=== PATIENT | female | born 1960 | race Caucasian/White ===

== ENCOUNTER → 2016-10-25 | Outpatient (REF) | payer OTHER ==
[~2016-10-25] MED LIST: ACIP20TA5 PO; ADV250INH INH; ALBU83IN INH; ALIG4CAP PO; ATEN25TA PO; LEVO25TA5 PO; LISI10TA4 PO; LOMO2.5T PO; NASA1SPR
[2016-10-25 13:20] LABS: ALBUMIN 3.2 GM/DL (3.2-5.2); ALKALINE PHOSPHATASE 58 U/L (45-117); ALT/SGPT 26 U/L (12-78); ANION GAP 8 MEQ/L (8-16); AST/SGOT 14 U/L (15-37); BILIRUBIN,TOTAL 0.6 MG/DL (0.2-1.0); BLOOD UREA NITROGEN 14 MG/DL (7-18); CALCIUM LEVEL 8.4 MG/DL (8.5-10.1); CARBON DIOXIDE LEVEL 25 MEQ/L (21-32); CHLORIDE LEVEL 108 MEQ/L (98-107); CHOLESTEROL LEVEL 179 MG/DL (<200); CREATININE FOR GFR 0.84 MG/DL (0.55-1.02); GLOMERULAR FILTRATION RATE > 60.0 (>51); GLUCOSE, FASTING 103 MG/DL (70-105); POTASSIUM SERUM 4.3 MEQ/L (3.5-5.1); SODIUM LEVEL 141 MEQ/L (136-145); TOTAL PROTEIN 6.1 GM/DL (6.4-8.2); TRIGLYCERIDES LEVEL 146 MG/DL (<150)
== END ==
LOC: M SFHCCLAY 06:58
PROVIDERS: ATTEND Family Medicine
DX: I10 Essential (primary) hypertension (principal); E78.2 Mixed hyperlipidemia

== ENCOUNTER → 2016-10-31 | Outpatient (REF) | payer OTHER | LOC: M SFHCCLAY 15:47 | PROVIDERS: ATTEND Family Medicine | DX: R35.0 Frequency of micturition (principal) ==

== ENCOUNTER → 2017-01-11 | Outpatient (REF) | payer OTHER ==
[~2017-01-11] MED LIST changes: +ACIP1TAB PO; -ACIP20TA5 PO
== END ==
LOC: M SFHCWAGY 15:18
PROVIDERS: ATTEND Nurse Practitioner Family
DX: Z12.4 Encounter for screening for malignant neoplasm of cervix (principal)

== ENCOUNTER → 2017-01-11 | Outpatient (CLI) | payer BC ==
--- NOTE | 2017-01-11 16:31 | REPMRS ---
Patient History The patient states she had a clinical breast exam in 12/2016. Family history of prostate cancer in father, endometrial cancer in sister at age 50 or over, pancreatic cancer in mother at age 70, and prostate cancer in brother under age 50. Taking hormonal contraceptives for 35 years. Digital Woman Screen Mammo: January 11, 2017 - Exam #: [id number] Bilateral CC and MLO view(s) were taken. Technologist: Ronel Warner, Technologist Prior study comparison: December 30, 2015, digital woman screen mammo performed at [facility]. December 03, 2014, digital woman screen mammo performed at [facility]. October 09, 2013, digital woman screen mammo performed at [facility]. FINDINGS: There are scattered fibroglandular densities. There has been no change in the appearance of the mammogram from the prior studies. There is a mild amount of scattered fibroglandular density which is fairly symmetric. There is no interval development of dominant mass, architectural distortion, or clustered microcalcification suggestive of malignancy. ASSESSMENT: BI-RADS/ACR category 1 mammogram. Negative. Recommendation Routine screening mammogram in 1 year (for women over age 40). This mammogram was interpreted with the aid of an FDA-approved computer-aided dectection system. Electronically Signed By: Herrera Briceño MD 01/11/17 [id number]
== END ==
LOC: M WHC 14:22
PROVIDERS: ATTEND Nurse Practitioner Family
DX: Z12.31 Encounter for screening mammogram for malignant neoplasm of breast (principal); Z79.899 Other long term (current) drug therapy

== ENCOUNTER → 2017-01-25 | Outpatient (REF) | payer OTHER | LOC: M SFHCWAGY 10:21 → M SFHCCLAY 10:22 | PROVIDERS: ATTEND Nurse Practitioner Family | DX: N95.1 Menopausal and female climacteric states (principal) ==

== ENCOUNTER → 2017-05-03 | Outpatient (REF) | payer OTHER ==
[2017-05-03 11:47] LABS: ALBUMIN 3.4 GM/DL (3.2-5.2); ALBUMIN/GLOBULIN RATIO 1.03 (1.00-1.93); ALKALINE PHOSPHATASE 57 U/L (45-117); ALT/SGPT 26 U/L (12-78); ANION GAP 9 MEQ/L (8-16); AST/SGOT 12 U/L (7-37); BILIRUBIN,TOTAL 0.7 MG/DL (0.2-1.0); BLOOD UREA NITROGEN 14 MG/DL (7-18); CALCIUM LEVEL 8.4 MG/DL (8.5-10.1); CARBON DIOXIDE LEVEL 24 MEQ/L (21-32); CHLORIDE LEVEL 109 MEQ/L (98-107); CHOLESTEROL LEVEL 198 MG/DL (<200); CREATININE FOR GFR 0.85 MG/DL (0.55-1.02); GLOMERULAR FILTRATION RATE > 60.0 (>51); GLUCOSE, FASTING 99 MG/DL (70-105); POTASSIUM SERUM 4.3 MEQ/L (3.5-5.1); SODIUM LEVEL 142 MEQ/L (136-145); TOTAL PROTEIN 6.7 GM/DL (6.4-8.2); TRIGLYCERIDES LEVEL 176 MG/DL (<150)
== END ==
LOC: M SFHCCLAY 07:03
PROVIDERS: ATTEND Family Medicine
DX: I10 Essential (primary) hypertension (principal); E78.2 Mixed hyperlipidemia

== ENCOUNTER → 2017-07-24 | Outpatient (REF) | payer OTHER | LOC: M SFHCCLAY 17:26 | DX: L03.213 Periorbital cellulitis (principal) | CPT/HCPCS: 87077 ==

== ENCOUNTER → 2017-07-24 | Outpatient (REF) | payer OTHER | LOC: M SFHCCLAY 10:34 | DX: L03.213 Periorbital cellulitis (principal); Z53.9 Procedure and treatment not carried out, unspecified reason ==

== ENCOUNTER → 2017-11-12 | Outpatient (CLI) | payer BC, OTHER ==
[~2017-11-12] MED LIST changes: -ACIP1TAB PO; -ADV250INH INH; -ALBU83IN INH; -ALIG4CAP PO; -ATEN25TA PO; +E-Z-GAS II EFFERVESCENT PACKET (SODIUM BICARB./CITRIC ACID/SIMETHICONE) As Ordered; +E-Z-HD 98% w/w 340GM SUSP BTL As Ordered; +E-Z-PAQUE 96% w/w SUSP 176GM BTL As Ordered; -LEVO25TA5 PO; -LISI10TA4 PO; -LOMO2.5T PO; -NASA1SPR
== END ==
LOC: M RAD 09:38
DX: R13.10 Dysphagia, unspecified (principal)
CPT/HCPCS: 74220

== ENCOUNTER → 2017-12-06 | Outpatient (REF) | payer OTHER ==
[2017-12-06 11:56] LABS: ALBUMIN 3.4 GM/DL (3.2-5.2); ALBUMIN/GLOBULIN RATIO 1.06 (1.00-1.93); ALKALINE PHOSPHATASE 61 U/L (45-117); ALT/SGPT 30 U/L (12-78); ANION GAP 9 MEQ/L (8-16); AST/SGOT 11 U/L (7-37); BILIRUBIN,TOTAL 0.6 MG/DL (0.2-1.0); BLOOD UREA NITROGEN 15 MG/DL (7-18); CALCIUM LEVEL 8.7 MG/DL (8.5-10.1); CARBON DIOXIDE LEVEL 24 MEQ/L (21-32); CHLORIDE LEVEL 109 MEQ/L (98-107); CHOLESTEROL LEVEL 194 MG/DL (<200); CHOLESTEROL RISK RATIO 5.388 (<5); CREATININE FOR GFR 0.89 MG/DL (0.55-1.30); GLOMERULAR FILTRATION RATE > 60.0 (>51); GLUCOSE, FASTING 96 MG/DL (70-100); HDL CHOLESTEROL 36 MG/DL (>40); LDL CHOLESTEROL 114.4 MG/DL (<100); NON-HDL-C 158 MG/DL; POTASSIUM SERUM 4.6 MEQ/L (3.5-5.1); SODIUM LEVEL 142 MEQ/L (136-145); TOTAL PROTEIN 6.6 GM/DL (6.4-8.2); TRIGLYCERIDES LEVEL 218 MG/DL (<150)
== END ==
LOC: M SFHCCLAY 07:10
DX: I10 Essential (primary) hypertension (principal); E78.2 Mixed hyperlipidemia

== ENCOUNTER → 2017-12-11 | Outpatient (REF) | payer OTHER | LOC: M SFHCCLAY 15:08 | DX: R30.0 Dysuria (principal) ==

== ENCOUNTER → 2017-12-24 | Outpatient (CLI) | payer BC, OTHER | LOC: M RAD 16:13 | DX: R51 Headache (principal); Z86.73 Personal history of transient ischemic attack (TIA), and cerebral infarction without residual deficits; I67.82 Cerebral ischemia | CPT/HCPCS: 70551 ==

== ENCOUNTER 2018-01-09 09:51 | Day surgery (SDC) | payer BC, OTHER ==
[~2018-01-09 09:51] MED LIST changes: -E-Z-GAS II EFFERVESCENT PACKET (SODIUM BICARB./CITRIC ACID/SIMETHICONE) As Ordered; -E-Z-HD 98% w/w 340GM SUSP BTL As Ordered; -E-Z-PAQUE 96% w/w SUSP 176GM BTL As Ordered; +NS 1,000 ML IV
[2018-01-09] MEDS ORDERED: PROPOFOL 200 MG/20 ML VIAL As Ordered (10:40)
[2018-01-09] MEDS ORDERED: LIDOCAINE 2% INJ 100 MG/5 ML SDV (FOR ANES.) As Ordered (10:40)
[2018-01-09] MEDS ORDERED: GLYCOPYRROLATE INJ 0.2 MG/ML 2 ML VIAL As Ordered (10:40)
[2018-01-09] MEDS ORDERED: fentaNYL 100 MCG/2 ML INJECTION (J3010) As Ordered (10:40)
[2018-01-09] MEDS ORDERED: ONDANSETRON 4MG/2ML VIAL (J2405) As Ordered (10:40)
== END 2018-01-09 11:21 | disposition home or self-care (01) ==
LOC: M OPP 09:51
DX: R13.10 Dysphagia, unspecified (principal); K21.9 Gastro-esophageal reflux disease without esophagitis; K29.70 Gastritis, unspecified, without bleeding; K44.9 Diaphragmatic hernia without obstruction or gangrene; I10 Essential (primary) hypertension; E03.9 Hypothyroidism, unspecified; K57.32 Diverticulitis of large intestine without perforation or abscess without bleeding; R12 Heartburn; J45.909 Unspecified asthma, uncomplicated; Z88.1 Allergy status to other antibiotic agents; Z88.8 Allergy status to other drugs, medicaments and biological substances; Z88.0 Allergy status to penicillin; Z79.899 Other long term (current) drug therapy; Z80.42 Family history of malignant neoplasm of prostate; Z80.8 Family history of malignant neoplasm of other organs or systems
CPT/HCPCS: 91035

== ENCOUNTER → 2018-01-17 | Outpatient (CLI) | payer BC | LOC: M WHC 13:06 | DX: Z12.31 Encounter for screening mammogram for malignant neoplasm of breast (principal) ==

== ENCOUNTER → 2018-01-17 | Outpatient (REF) | payer OTHER ==
[2018-01-22 14:18] LABS: HPV LOW VOL RFLX Negative (Negative)
== END ==
LOC: M SFHCWAGY 13:26
DX: Z12.4 Encounter for screening for malignant neoplasm of cervix (principal)

== ENCOUNTER → 2018-03-03 | Outpatient (REF) | payer OTHER | LOC: M SFHCCLAY 17:03 | DX: Z01.818 Encounter for other preprocedural examination (principal) ==

== ENCOUNTER → 2018-03-07 | Outpatient (REF) | payer OTHER ==
[2018-03-07 16:29] LABS: HEMATOCRIT 42.5 % (36.0-47.0); HEMOGLOBIN 14.3 g/dl (12.0-15.5); MEAN CORPUSCULAR HEMOGLOBIN 29.9 pg (27.0-33.0); MEAN CORPUSCULAR HGB CONC 33.6 g/dl (32.0-36.5); MEAN CORPUSCULAR VOLUME 88.9 fl (80.0-96.0); PLATELET COUNT, AUTOMATED 516 10^3/uL (150-450); RED BLOOD COUNT 4.78 10^6/uL (4.00-5.40); RED CELL DISTRIBUTION WIDTH 13.4 % (11.5-14.5); WHITE BLOOD COUNT 9.8 10^3/uL (4.0-10.0)
[2018-03-07 17:45] LABS: ANION GAP 9 MEQ/L (8-16); BLOOD UREA NITROGEN 14 MG/DL (7-18); CALCIUM LEVEL 8.6 MG/DL (8.5-10.1); CARBON DIOXIDE LEVEL 22 MEQ/L (21-32); CHLORIDE LEVEL 110 MEQ/L (98-107); CREATININE FOR GFR 0.92 MG/DL (0.55-1.30); GLOMERULAR FILTRATION RATE > 60.0 (>51); GLUCOSE, FASTING 86 MG/DL (70-100); POTASSIUM SERUM 4.2 MEQ/L (3.5-5.1); SODIUM LEVEL 141 MEQ/L (136-145)
== END ==
LOC: M SFHCCLAY 09:38
DX: Z01.818 Encounter for other preprocedural examination (principal)
CPT/HCPCS: 80048

== ENCOUNTER → 2018-04-10 | Outpatient (CLI) | payer BC | LOC: M WHC 14:14 | DX: N92.0 Excessive and frequent menstruation with regular cycle (principal) | CPT/HCPCS: 76830 ==

== ENCOUNTER → 2018-05-30 | Outpatient (REF) | payer OTHER ==
[~2018-05-30] MED LIST changes: +ACIP1TAB PO; +ADV250INH INH; +ALBU83IN INH; +ALIG4CAP PO; +ATEN25TA PO; +FLUTISP; +LEVO25TA5 PO; +LISI10TA4 PO; +LOMO2.5T PO; +MONT10TA2 PO; +NASA1SPR; -NS 1,000 ML IV; +PANT40TA3 PO
[2018-05-30 11:53] LABS: BASO # 0.1 10^3/uL (0.0-0.2); EOS # 0.2 10^3/uL (0.0-0.50); EOS % 2.5 % (0.0-3.0); HEMOGLOBIN 13.8 g/dl (12.0-15.5); LYMPH # 1.9 10^3/uL (1.5-4.5); LYMPH % 27.1 % (24.0-44.0); MEAN CORPUSCULAR HEMOGLOBIN 29.4 pg (27.0-33.0); MEAN CORPUSCULAR HGB CONC 32.9 g/dl (32.0-36.5); MEAN CORPUSCULAR VOLUME 89.6 fl (80.0-96.0); MONO # 0.7 10^3/uL (0.0-0.8); MONO % 9.4 % (0.0-5.0); NEUTROPHILS # 4.2 10^3/uL (1.8-7.7); NEUTROPHILS % 59.6 % (36.0-66.0); PLATELET COUNT, AUTOMATED 452 10^3/uL (150-450); RED BLOOD COUNT 4.69 10^6/uL (4.00-5.40); WHITE BLOOD COUNT 7.1 10^3/uL (4.0-10.0)
[2018-05-30 12:10] LABS: ALBUMIN 3.6 GM/DL (3.2-5.2); ALT/SGPT 90 U/L (12-78); BILIRUBIN,TOTAL 0.7 MG/DL (0.2-1.0); BLOOD UREA NITROGEN 14 MG/DL (7-18); CALCIUM LEVEL 8.9 MG/DL (8.5-10.1); CARBON DIOXIDE LEVEL 26 MEQ/L (21-32); CHLORIDE LEVEL 107 MEQ/L (98-107); CHOLESTEROL LEVEL 199 MG/DL (<200); CHOLESTEROL RISK RATIO 4.061 (<5); CREATININE FOR GFR 0.82 MG/DL (0.55-1.30); GLOMERULAR FILTRATION RATE > 60.0 (>51); GLUCOSE, FASTING 97 MG/DL (70-100); HDL CHOLESTEROL 49 MG/DL (>40); LDL CHOLESTEROL 121 MG/DL (<100); NON-HDL-C 150 MG/DL; POTASSIUM SERUM 4.3 MEQ/L (3.5-5.1); SODIUM LEVEL 142 MEQ/L (136-145); TOTAL PROTEIN 6.5 GM/DL (6.4-8.2); TRIGLYCERIDES LEVEL 145 MG/DL (<150)
== END ==
LOC: M SFHCCLAY 07:16
PROVIDERS: ATTEND Family Medicine
DX: I10 Essential (primary) hypertension (principal); E78.2 Mixed hyperlipidemia; E03.9 Hypothyroidism, unspecified

== ENCOUNTER → 2018-08-04 | Outpatient (REF) | payer OTHER | LOC: M SFHCWAGY 12:11 | PROVIDERS: ATTEND Nurse Practitioner Family | DX: N90.89 Other specified noninflammatory disorders of vulva and perineum (principal) ==

== ENCOUNTER → 2018-08-06 | Outpatient (CLI) | payer BC, OTHER ==
--- NOTE | 2018-08-06 09:45 | REP ---
MAXILLOFACIAL CT WITHOUT CONTRAST: HISTORY: Recurrent maxillary sinusitis. A right Debora cell is present. Very minimal mucosal thickening is present in the right maxillary sinus. The remaining sinuses are clear. The ostiomeatal units are patent. The middle and inferior nasal turbinates are partially paradoxical. There is mild deviation of the nasal septum to the right. A spur is present arising from the right side of the nasal septum. The spur abuts the right middle and inferior nasal turbinates. The cribriform plate, medial mendoza of the orbits and optic canals are intact. The carotid canals form a segment of the posterolateral mendoza of the sphenoid sinus. The sphenoid sinus septum inserts into the left internal carotid canal wall. IMPRESSION: Sinus mucosal thickening as described above. Electronically Signed by Solis Simons MD 08/06/2018 09:49 A
== END ==
LOC: M RAD 09:17
PROVIDERS: ATTEND Family Medicine
DX: J01.01 Acute recurrent maxillary sinusitis (principal)

== ENCOUNTER → 2018-11-13 | Outpatient (REF) | payer OTHER ==
[~2018-11-13] MED LIST changes: +ADVI100T PO; +AMLO5TAB6 PO; +DICY10CA13 PO; +NORC1TAB7 PO; +SING10TA32 PO
[2018-11-14 13:07] LABS: BASO # 0.1 10^3/uL (0.0-0.2); EOS # 0.2 10^3/uL (0.0-0.50); EOS % 2.1 % (0.0-3.0); HEMATOCRIT 42.1 % (36.0-47.0); HEMOGLOBIN 13.7 g/dl (12.0-15.5); LYMPH # 2.1 10^3/uL (1.5-4.5); MEAN CORPUSCULAR HEMOGLOBIN 29.5 pg (27.0-33.0); MEAN CORPUSCULAR HGB CONC 32.5 g/dl (32.0-36.5); MEAN CORPUSCULAR VOLUME 90.7 fl (80.0-96.0); MONO # 0.7 10^3/uL (0.0-0.8); MONO % 7.9 % (0.0-5.0); NEUTROPHILS # 5.7 10^3/uL (1.8-7.7); NEUTROPHILS % 64.7 % (36.0-66.0); PLATELET COUNT, AUTOMATED 486 10^3/uL (150-450); RED BLOOD COUNT 4.64 10^6/uL (4.00-5.40); WHITE BLOOD COUNT 8.8 10^3/uL (4.0-10.0)
[2018-11-14 13:31] LABS: BLOOD UREA NITROGEN 19 MG/DL (7-18); CALCIUM LEVEL 9.9 MG/DL (8.5-10.1); CARBON DIOXIDE LEVEL 27 MEQ/L (21-32); CHLORIDE LEVEL 107 MEQ/L (98-107); CREATININE FOR GFR 0.88 MG/DL (0.55-1.30); GLOMERULAR FILTRATION RATE > 60.0 (>51); GLUCOSE, FASTING 102 MG/DL (70-100); POTASSIUM SERUM 4.1 MEQ/L (3.5-5.1); SODIUM LEVEL 143 MEQ/L (136-145)
== END ==
LOC: M SFHCCLAY 14:07
PROVIDERS: ATTEND Nurse Practitioner Family
DX: N81.10 Cystocele, unspecified (principal); I10 Essential (primary) hypertension

== ENCOUNTER 2018-11-20 06:03 | Day surgery (SDC) | payer BC, OTHER ==
[~2018-11-20] VITALS: Ht 165.1 cm; Wt 92.4 kg
[~2018-11-20 06:03] MED LIST changes: -ADVI100T PO; +LR 1,000 ML IV ONE; -NORC1TAB7 PO
[2018-11-20 06:34] LABS: HEMATOCRIT 41.9 % (36.0-47.0); HEMOGLOBIN 13.8 g/dl (12.0-15.5); MEAN CORPUSCULAR HEMOGLOBIN 29.6 pg (27.0-33.0); MEAN CORPUSCULAR HGB CONC 32.9 g/dl (32.0-36.5); MEAN CORPUSCULAR VOLUME 89.7 fl (80.0-96.0); PLATELET COUNT, AUTOMATED 434 10^3/uL (150-450); RED BLOOD COUNT 4.67 10^6/uL (4.00-5.40)
[2018-11-20] MEDS ORDERED: VASOPRESSIN INJ 20 UNITS/ML VIAL As Ordered ONE (06:54)
[2018-11-20] MEDS ORDERED: dexameTHASONE 4 MG/ML 1ML VIAL (J1100) As Ordered ONE (07:07)
[2018-11-20] MEDS ORDERED: ROCURONIUM BROMIDE 50 MG/5 ML VIAL As Ordered ONE ×2 (07:07→09:18)
[2018-11-20] MEDS ORDERED: LIDOCAINE 2% INJ 100 MG/5 ML SDV (FOR ANES.) As Ordered ONE (07:07)
[2018-11-20] MEDS ORDERED: ONDANSETRON 4MG/2ML VIAL (J2405) As Ordered ONE ×2 (07:07→10:44)
[2018-11-20] MEDS ORDERED: PROPOFOL 200 MG/20 ML VIAL As Ordered ONE (07:07)
[2018-11-20] MEDS ORDERED: fentaNYL 100 MCG/2 ML INJECTION (J3010) As Ordered ONE ×3 (07:07→10:45)
[2018-11-20] MEDS ORDERED: MIDAZOLAM INJ 2 MG/2 ML VIAL (J2250) As Ordered ONE (07:07)
[2018-11-20] MEDS ORDERED: SCOPOLAMINE 1MG TRANSDERMAL PATCH As Ordered ONE (07:25)
[2018-11-20] MEDS ORDERED: SCOPOLAMINE 1MG TRANSDERMAL PATCH TOP ONE (07:45)
[2018-11-20] MEDS ORDERED: SUGAMMADEX SODIUM 500 MG/5 ML VIAL (BRIDION) As Ordered ONE (08:00)
[2018-11-20] MEDS ORDERED: KETOROLAC 60 MG/2 ML VIAL (J1885) As Ordered ONE (08:00)
[2018-11-20] MEDS ORDERED: METOCLOPRAMIDE INJ 10MG/2ML VIAL (J2765) As Ordered ONE (08:00)
[2018-11-20] MEDS ORDERED: ACETAMINOPHEN 1000MG 100ML IV BTL (OFIRMEV) (J0131 PER 10MG) As Ordered ONE (10:00)
[2018-11-20] MEDS ORDERED: oxyCODONE 5MG TAB As Ordered ONE (10:45)
[2018-11-20] MEDS: fentaNYL 100 MCG/2 ML INJECTION (J3010) IV PRN ×4 (10:45→11:00)
[2018-11-20] MEDS ORDERED: MORPHINE 1MG/ML IN 0.9% NACL 100ML IV BAG As Ordered ONE (10:45)
[2018-11-20] MEDS ORDERED: MORPHINE 1MG/ML IN 0.9% NACL 100ML IV BAG IV PRN (11:00)
[2018-11-20] MEDS ORDERED: LR 1,000 ML IV SCH (11:00)
[2018-11-20] MEDS ORDERED: EPIDURAL/PCA KEYS XX PRN (11:00)
[2018-11-20] MEDS: LR 1,000 ML IV SCH ×2 (11:00→20:39)
[2018-11-20] MEDS ORDERED: PROMETHAZINE INJ 25 MG/ML VIAL (J2550) IV PRN (11:00)
[2018-11-20] MEDS ORDERED: diphenhydrAMINE INJ 50MG/ML VIAL (J1200) IV PRN (11:00)
[2018-11-20] MEDS ORDERED: NALOXONE INJ 0.4 MG/1 ML VIAL (J2310) IV PRN (11:00)
[2018-11-20] MEDS ORDERED: oxyCODONE 5MG TAB PO PRN (11:00)
[2018-11-20] MEDS ORDERED: NALBUPHINE HCL 10 MG/ML AMP (J2300) IV PRN (11:00)
[2018-11-20] MEDS ORDERED: HYDROMORPHONE HCL 0.5 MG/ 0.5 ML SYRINGE (J1170 PER 1) As Ordered ONE (11:22)
--- NOTE | 2018-11-20 11:34 | RO ---
DATE OF PROCEDURE: 11/20/2018 PREPROCEDURE DIAGNOSIS/INDICATION FOR SURGERY: Symptomatic pelvic prolapse, failed pessary, urinary incontinence with urethral hypermobility. POSTPROCEDURE DIAGNOSIS: Symptomatic pelvic prolapse, failed pessary, urinary incontinence with urethral hypermobility. PROCEDURE: Total vaginal hysterectomy with right salpingectomy, sacrospinous suspension, anterior and posterior paracystourethroscopy, Mid-Urethral Sling Solyx. SURGEON: Dr. Maria Dolores Etienne WOOD DRILLING MACHINE OPERATOR: ANESTHESIA: General endotracheal anesthesia. BRIEF DESCRIPTION OF PROCEDURE AND FINDINGS: Julita was brought to the operating room where sufficient general endotracheal anesthesia was induced and she was prepped, draped and positioned in the usual sterile fashion with the cervix grasped with a single tooth tenacula a circumferential incision was made with the cardinal ligaments isolated, clamped, transected and ligated and then the uterine vasculature and the uterosacral was clamped, transected, and ligated, not surprisingly the urterosacrals were quite attenuated, they were nevertheless marked for later reattachment. She also had a reasonable enterocele anteriorly so the uterus was drawn down through and on the right side we were able to get the tube and on the left side there is a little bit of scarring and so I decided to leave that tube. We then did a pursestring enterocele repair and then dissected free the cystocele anteriorly and did an apical cystocele repair and then dissected free posteriorly and dissected out to the right ureterosacral ligament for the sacrospinous suspension. Maxon suture #2-0 were placed two each and some Anchosure Anchors, we then placed two of the anchors in the sacrospinous ligament given us four sutures which with Vogt needles we were able to come through and through the vaginal epithelium in a four point repair. We then with 0 Vicryl closed the vaginal cuff taking good angle stitches of course and then imani up those Maxon sutures acting a adriel up to the sacrospinous ligament with good support, but there was still a little midline rectocele to repair and also some separation at the introitus of the rectovaginal septum and peritoneal body which needed re-supporting, but we had good apical support. We went ahead and did cystoscopy which was normal with jets of urine bilaterally although the ureter on the left side was slightly different opening to the bladder, nevertheless the urinary flow was quite obviously normal and we had some puckering anteriorly where we had corrected that apical cystocele and we then went ahead and completed the rest of the throws on the Maxon then I injected anteriorly in the midline where that small persistent sort of mid anterior cystocele was and we dissected that free and some deep side to side sutures to the perivesical tissues using 2-0 Vicryl, trimmed the redundant tissue, closed the vaginal epithelium anteriorly again with 2-0 Vicryl and then turned our attention to the introital posterior pair, a yoselin shape area of tissue was removed in an inverted triangle on the peritoneal body, but then regular yoselin on the posterior vagina getting a yoselin resection we then plicated the levators, re-supported the rectovaginal septum and then reconnected it vertically to the peritoneal body and then re-supported the peritoneal body with 0 Vicryl and then closed all of this 2-0 Vicryl with good approximation and hemostasis achieved. We then turned our attention to the mid urethral sling anteriorly approximately a centimeter cephalad from the ureteral meatus a vertical midline vaginal incision was made, the Strully scissors were used again to dissect the underlying tissues to create the tracks for the trocars for the Solyx mid urethral sling and this was placed without complications starting first on the right side then the left and the vaginal epithelium then closed. Cystourethroscopy confirmed lack of bladder injury with this placement and confirmed again of lack of suture into the bladder and good urinary flow. We then placed a vaginal pack and did a rectal exam which confirmed good support and lack of rectal injury and the procedure was then ended. ESTIMATED BLOOD LOSS: Relatively small, her uterus and entire case about 25 mL. FLUID REPLACEMENT: Crystalloid. COMPLICATIONS: None. CONDITION ON DISPOSITION: Julita tolerated the procedure well and was recovering in the recovery room in good condition.
[2018-11-20 12:00] VITALS: BP 158/79
[2018-11-20] MEDS ORDERED: ONDANSETRON 4MG/2ML VIAL (J2405) IV PRN (12:00)
[2018-11-20] MEDS ORDERED: HYDROMORPHONE HCL 0.5 MG/ 0.5 ML SYRINGE (J1170 PER 1) IV PRN (12:00)
[2018-11-20 12:30] VITALS: BP 136/76
[2018-11-20 13:00] VITALS: BP 134/70
[2018-11-20] MEDS ORDERED: IBUPROFEN 600 MG TAB PO PRN (13:30)
[2018-11-20 14:00] VITALS: BP 123/67
[2018-11-20 16:00] VITALS: BP 134/73
[2018-11-20] MEDS: ADVAIR HFA 115/21MCG INHALER INH SCH (20:01)
[2018-11-20 20:30] VITALS: BP 136/71
[2018-11-20] MEDS: IBUPROFEN 600 MG TAB PO PRN (20:41)
[2018-11-21] VITALS: BP 129/66
[2018-11-21] MEDS: LR 1,000 ML IV SCH (04:05)
[2018-11-21 04:30] VITALS: BP 139/77
[2018-11-21] MEDS: IBUPROFEN 600 MG TAB PO PRN (05:24)
[2018-11-21] MEDS ORDERED: LEVOTHYROXINE 25MCG TABLET (0.025MG) PO SCH (06:00)
[2018-11-21] MEDS ORDERED: NORCO, ANEXSIA 5/325MG TABLET (HYDROcodone/ACETAMINOPHEN) PO PRN (06:00)
[2018-11-21 07:12] LABS: HEMOGLOBIN 12.2 g/dl (12.0-15.5); MEAN CORPUSCULAR HEMOGLOBIN 30.2 pg (27.0-33.0); MEAN CORPUSCULAR VOLUME 91.6 fl (80.0-96.0); PLATELET COUNT, AUTOMATED 386 10^3/uL (150-450); RED BLOOD COUNT 4.04 10^6/uL (4.00-5.40); WHITE BLOOD COUNT 10.6 10^3/uL (4.0-10.0)
[2018-11-21] MEDS: ADVAIR HFA 115/21MCG INHALER INH SCH (07:50)
[2018-11-21 08:30] VITALS: BP 138/78
[2018-11-21 08:34] VITALS: BP 138/78
[2018-11-21] MEDS ORDERED: MONTELUKAST 10 MG TAB PO SCH (09:00)
[2018-11-21] MEDS ORDERED: PANTOPRAZOLE 40MG TAB (PROTONIX) PO SCH (09:00)
[2018-11-21] MEDS ORDERED: ATENOLOL 25 MG TAB PO SCH (09:00)
[2018-11-21] MEDS ORDERED: amLODIPine 5 MG TAB PO SCH ×2 (09:00)
[2018-11-21] MEDS ORDERED: ADVI100T PO (09:37)
[2018-11-21] MEDS ORDERED: NORC1TAB7 PO (09:37)
== END 2018-11-21 10:15 | disposition home or self-care (01) ==
LOC: M SDC 06:03 → M PED 11:53 → M SDC 11-21 10:15
PROVIDERS: ATTEND Obstetrics & Gynecology
DX: N72 Inflammatory disease of cervix uteri (principal); N81.89 Other female genital prolapse; R32 Unspecified urinary incontinence; N36.41 Hypermobility of urethra; I10 Essential (primary) hypertension; E03.9 Hypothyroidism, unspecified; K21.9 Gastro-esophageal reflux disease without esophagitis; Z79.51 Long term (current) use of inhaled steroids; J45.909 Unspecified asthma, uncomplicated; Z79.899 Other long term (current) drug therapy
CPT/HCPCS: 36415; 57260; 57282; 57288; 58262; 85027; 86850; 86900; 86901; 88307; 94640; 94664; C1713; C1771; J0131; J0690; J1100; J1885; J2250; J2405; J2765; J3010

== ENCOUNTER → 2018-12-08 | Outpatient (REF) | payer OTHER ==
[~2018-12-08] MED LIST changes: +ADVI100T PO; -LR 1,000 ML IV ONE; +NORC1TAB7 PO
[2018-12-08 18:45] LABS: APPEARANCE, URINE HAZY (CLEAR); BACTERIA, URINE AUTO 1+ (NEGATIVE); BILIRUBIN, URINE AUTO NEGATIVE (NEGATIVE); BLOOD, URINE BLOOD 3+ (NEGATIVE); COLOR, URINE YELLOW (YELLOW); GLUCOSE, URINE (UA) AUTO NEGATIVE (NEGATIVE); KETONE, URINE AUTO NEGATIVE (NEGATIVE); LEUKOCYTE ESTERASE, URINE AUTO 3+ (NEGATIVE); MUCUS, URINE SMALL (NEGATIVE); NITRITE, URINE AUTO NEGATIVE (NEGATIVE); PROTEIN, URINE AUTO NEGATIVE (NEGATIVE); RBC, URINE AUTO 60 /HPF (0-3); SPECIFIC GRAVITY URINE AUTO 1.013 (1.002-1.035); SQUAMOUS EPITHELIAL CELL UR AU 2 /HPF (0-6); TRANSITIONAL EPITHELIAL AUTO <1 /HPF; UROBILINOGEN, URINE AUTO 0.2 mg/dL (0.0-2.0); WBC, URINE AUTO TNTC /HPF (0-3)
== END ==
LOC: M LAB REF 16:30
PROVIDERS: ATTEND Nurse Practitioner Women's Health
DX: N39.0 Urinary tract infection, site not specified (principal)

== ENCOUNTER → 2018-12-17 | Outpatient (REF) | payer OTHER ==
[2018-12-17 12:42] LABS: APPEARANCE, URINE CLOUDY (CLEAR); BACTERIA, URINE AUTO NEGATIVE (NEGATIVE); BILIRUBIN, URINE AUTO NEGATIVE (NEGATIVE); BLOOD, URINE BLOOD 2+ (NEGATIVE); COLOR, URINE YELLOW (YELLOW); GLUCOSE, URINE (UA) AUTO NEGATIVE (NEGATIVE); KETONE, URINE AUTO NEGATIVE (NEGATIVE); LEUKOCYTE ESTERASE, URINE AUTO 3+ (NEGATIVE); MUCUS, URINE SMALL (NEGATIVE); NITRITE, URINE AUTO NEGATIVE (NEGATIVE); PROTEIN, URINE AUTO NEGATIVE (NEGATIVE); RBC, URINE AUTO 40 /HPF (0-3); SPECIFIC GRAVITY URINE AUTO 1.016 (1.002-1.035); SQUAMOUS EPITHELIAL CELL UR AU 4 /HPF (0-6); UROBILINOGEN, URINE AUTO 0.2 mg/dL (0.0-2.0); WBC, URINE AUTO TNTC /HPF (0-3)
== END ==
LOC: M LAB REF 12:20
PROVIDERS: ATTEND Nurse Practitioner Women's Health
DX: N39.0 Urinary tract infection, site not specified (principal)

== ENCOUNTER → 2018-12-30 | Outpatient (REF) | payer OTHER ==
[2018-12-30 17:53] LABS: APPEARANCE, URINE CLOUDY (CLEAR); BACTERIA, URINE AUTO NEGATIVE (NEGATIVE); BILIRUBIN, URINE AUTO NEGATIVE (NEGATIVE); BLOOD, URINE BLOOD 1+ (NEGATIVE); COLOR, URINE YELLOW (YELLOW); GLUCOSE, URINE (UA) AUTO NEGATIVE (NEGATIVE); KETONE, URINE AUTO NEGATIVE (NEGATIVE); LEUKOCYTE ESTERASE, URINE AUTO 3+ (NEGATIVE); MUCUS, URINE SMALL (NEGATIVE); NITRITE, URINE AUTO NEGATIVE (NEGATIVE); PROTEIN, URINE AUTO NEGATIVE (NEGATIVE); RBC, URINE AUTO 17 /HPF (0-3); SPECIFIC GRAVITY URINE AUTO 1.021 (1.002-1.035); SQUAMOUS EPITHELIAL CELL UR AU 2 /HPF (0-6); UROBILINOGEN, URINE AUTO 0.2 mg/dL (0.0-2.0); WBC, URINE AUTO 153 /HPF (0-3)
== END ==
LOC: M LAB REF 16:24
PROVIDERS: ATTEND Nurse Practitioner Women's Health
DX: N39.0 Urinary tract infection, site not specified (principal)

== ENCOUNTER → 2019-01-07 | Outpatient (REF) | payer OTHER ==
[2019-01-07 17:48] LABS: APPEARANCE, URINE CLEAR (CLEAR); BACTERIA, URINE AUTO NEGATIVE (NEGATIVE); BILIRUBIN, URINE AUTO NEGATIVE (NEGATIVE); BLOOD, URINE BLOOD NEGATIVE (NEGATIVE); COLOR, URINE YELLOW (YELLOW); GLUCOSE, URINE (UA) AUTO NEGATIVE (NEGATIVE); KETONE, URINE AUTO NEGATIVE (NEGATIVE); LEUKOCYTE ESTERASE, URINE AUTO 1+ (NEGATIVE); NITRITE, URINE AUTO NEGATIVE (NEGATIVE); PROTEIN, URINE AUTO NEGATIVE (NEGATIVE); RBC, URINE AUTO 2 /HPF (0-3); SPECIFIC GRAVITY URINE AUTO 1.014 (1.002-1.035); SQUAMOUS EPITHELIAL CELL UR AU 0 /HPF (0-6); UROBILINOGEN, URINE AUTO 0.2 mg/dL (0.0-2.0); WBC, URINE AUTO 4 /HPF (0-3)
== END ==
LOC: M LAB REF 16:45
PROVIDERS: ATTEND Obstetrics & Gynecology
DX: N81.2 Incomplete uterovaginal prolapse (principal); N39.46 Mixed incontinence

== ENCOUNTER → 2019-01-15 | Outpatient (CLI) | payer BC, OTHER ==
--- NOTE | 2019-01-15 16:03 | REP ---
HISTORY: Heel pain. Mild degenerative changes seen throughout the foot, particularly the first metatarsophalangeal joint. There is no acute fracture. There is no significant heel spur. Electronically Signed by Jerry Owusu DO 01/15/2019 04:30 P
--- NOTE | 2019-01-15 16:20 | REP ---
HISTORY: Cough. COMPARISON: None. FINDINGS: The superior mediastinal structures are midline. The cardiac silhouette is unremarkable in size, shape and position. The diaphragmatic surfaces of the lungs are regular and the costophrenic angles are clear. The pulmonary morales are clear. The imaged osseous structures are intact. IMPRESSION: There is no acute cardiopulmonary disease. Electronically Signed by Jerry Owusu DO 01/15/2019 04:30 P
== END ==
LOC: M CLY 14:29
PROVIDERS: ATTEND Family Medicine
DX: R05 Cough (principal); M19.071 Primary osteoarthritis, right ankle and foot

== ENCOUNTER → 2019-01-15 | Outpatient (REF) | payer OTHER ==
[2019-01-16 11:56] LABS: BASO # 0.1 10^3/uL (0.0-0.2); BASO % 0.9 % (0.0-1.0); EOS # 0.2 10^3/uL (0.0-0.50); EOS % 1.7 % (0.0-3.0); HEMATOCRIT 43.1 % (36.0-47.0); HEMOGLOBIN 13.9 g/dl (12.0-15.5); LYMPH # 1.9 10^3/uL (1.5-4.5); LYMPH % 20.6 % (24.0-44.0); MEAN CORPUSCULAR HEMOGLOBIN 29.2 pg (27.0-33.0); MEAN CORPUSCULAR HGB CONC 32.3 g/dl (32.0-36.5); MEAN CORPUSCULAR VOLUME 90.5 fl (80.0-96.0); MONO # 0.7 10^3/uL (0.0-0.8); NEUTROPHILS # 6.2 10^3/uL (1.8-7.7); NEUTROPHILS % 68.5 % (36.0-66.0); PLATELET COUNT, AUTOMATED 527 10^3/uL (150-450); RED BLOOD COUNT 4.76 10^6/uL (4.00-5.40); WHITE BLOOD COUNT 9.1 10^3/uL (4.0-10.0)
[2019-01-16 12:04] LABS: C REACTIVE PROTEIN QUANTITATIV 0.86 MG/DL (0.00-0.30); RHEUMATOID FACTOR QUANT < 10.0 IU/ML (<15.0)
[2019-01-16 12:50] LABS: ERYTHROCYTE SEDIMENTATION RATE 30 mm/hr (0-30)
[2019-01-20 00:10] LABS: ANA (HEP2) Negative (.); CYCLIC CITRULLINATED PEPTIDE 13 units (0-19)
== END ==
LOC: M SFHCCLAY 14:12
PROVIDERS: ATTEND Family Medicine
DX: R22.33 Localized swelling, mass and lump, upper limb, bilateral (principal); E03.9 Hypothyroidism, unspecified

== ENCOUNTER → 2019-01-20 | Outpatient (CLI) | payer BC ==
--- NOTE | 2019-01-20 15:21 | REPMRS ---
Patient History The patient states she had a clinical breast exam in 12/2018. Family history of prostate cancer under age 50 in brother, prostate cancer in father, pancreatic cancer at age 70 in mother, endometrial cancer at age 50 or over in sister. Took hormonal contraceptives for 36 years. 3D TOMOSYNTHESIS WAS PERFORMED. The [facility] lifetime risk for breast cancer is 7.1%. Digital Woman Screen Mammo: January 20, 2019 - Exam #: [id number] Bilateral CC and MLO view(s) were taken. Technologist: Ronel Warner, Technologist Prior study comparison: January 17, 2018, bilateral digital woman screen mammo performed at [facility]. January 11, 2017, digital woman screen mammo performed at [facility]. FINDINGS: There are scattered fibroglandular densities. There has been no change in the appearance of the mammogram from the prior studies. There is a mild amount of residual fibroglandular tissue which is fairly symmetric. There is no interval development of dominant mass, architectural distortion, or clustered microcalcification suggestive of malignancy. Assessment: BI-RADS/ACR category 1 mammogram. Negative Mammogram. Recommendation Routine screening mammogram in 1 year (for women over age 40). This mammogram was interpreted with the aid of an FDA-approved computer-aided dectection system. Electronically Signed By: Walter Candelaria MD 01/20/19 2789
== END ==
LOC: M WHC 12:52
PROVIDERS: ATTEND Nurse Practitioner Family
DX: Z12.31 Encounter for screening mammogram for malignant neoplasm of breast (principal); Z80.0 Family history of malignant neoplasm of digestive organs; Z80.49 Family history of malignant neoplasm of other genital organs; Z92.0 Personal history of contraception

== ENCOUNTER → 2019-07-14 | Outpatient (CLI) | payer BC ==
[~2019-07-14] MED LIST changes: -MONT10TA2 PO; +MONT10TA4 PO
--- NOTE | 2019-07-14 14:11 | REP ---
Clinical: Cough . Comparison: 01/15/2019 . Technique: PA and lateral. Findings: The mediastinum and cardiac silhouette are normal. The lung morales are clear and without acute consolidation, effusion, or pneumothorax. The skeletal structures are intact and normal. Impression: 1. No acute cardiopulmonary process. Electronically Signed by Ezekiel Scott MD 07/14/2019 02:03 P
== END ==
LOC: M CLY 13:41
PROVIDERS: ATTEND Family Medicine
DX: R05 Cough (principal)

== ENCOUNTER → 2019-07-14 | Outpatient (REF) | payer OTHER | LOC: M LABDRAWC 07:30 | PROVIDERS: ATTEND Internal Medicine Pulmonary Disease | DX: R05 Cough (principal) ==

== ENCOUNTER → 2019-07-28 | Outpatient (REF) | payer OTHER ==
[2019-07-28 12:37] LABS: BLOOD UREA NITROGEN 14 MG/DL (7-18); CREATININE FOR GFR 0.82 MG/DL (0.70-1.30); GLOMERULAR FILTRATION RATE > 60.0 (>56)
== END ==
LOC: EDSEX → M LABDRAWC 11:38
PROVIDERS: ATTEND Internal Medicine Pulmonary Disease
DX: Z01.812 Encounter for preprocedural laboratory examination (principal)

== ENCOUNTER → 2019-07-30 | Outpatient (CLI) | payer BC, OTHER ==
[~2019-07-30] MED LIST changes: +ISOVUE-370 76% 100ML VIAL (Q9967) As Ordered ONE
--- NOTE | 2019-07-30 14:26 | REPVR ---
PROCEDURE INFORMATION: Exam: CT Chest With Contrast Exam date and time: 07/30/2019 1:36 PM Age: 58 years old Clinical indication: Cough TECHNIQUE: Imaging protocol: Computed tomography of the chest with intravenous contrast. 3D rendering: MIP and/or 3D reconstructed images were created by the technologist. Radiation optimization: All CT scans at this facility use at least one of these dose optimization techniques: automated exposure control; mA and/or kV adjustment per patient size (includes targeted exams where dose is matched to clinical indication); or iterative reconstruction. Contrast material: ISOVUE 370; Contrast volume: 75 ml; Contrast route: IV; COMPARISON: CR CHEST 2 VIEW 07/14/2019. CT abdomen pelvis 01/26/16. FINDINGS: Lungs: Mild discoid scarring or atelectasis in both lower lobes is new since the CT in 2015. The lungs are otherwise clear. Pleural space: No significant pleural effusion. No pneumothorax. Heart: The cardiac silhouette is normal in size. Mediastinum: The mediastinal contour is normal. There is a small hiatal hernia, 2 cm in length. Aorta: Unremarkable. No aortic aneurysm. Lymph nodes: There is no hilar, mediastinal or axillary lymphadenopathy. Liver: An enhancing lesion in the left hepatic lobe at the junction of hepatic segments 2 and 4A is 2.1 x 2.2 x 1.9 cm (in retrospect, it was previously 1.8 x 2.0 x 1.6 cm on 01/26/16, but not reported at that time). It is benign, nonspecific, and most likely a hemangioma. Gallbladder and bile ducts: Cholecystectomy clips.The included upper abdominal organs are otherwise unremarkable. Bones/joints: No acute osseous abnormalities are identified. Soft tissues: Unremarkable. Other findings: CT abdomen pelvis with contrast 01/26/16. IMPRESSION: 1. Mild discoid scarring or atelectasis in both lower lobes. The lungs are otherwise clear. 2. No acute thoracic abnormality. 3. An enhancing lesion in the left hepatic lobe at the junction of hepatic segments 2 and 4A is 2.1 x 2.2 x 1.9 cm (in retrospect, it was previously 1.8 x 2.0 x 1.6 cm on 01/26/16, but not reported at that time). It is benign, nonspecific, and most likely a hemangioma. Electronically signed by: Nick Aviles On 07/30/2019 14:26:20 PM
== END ==
LOC: M RAD 13:22 → EDSEX 14:00
PROVIDERS: ATTEND Internal Medicine Pulmonary Disease
DX: R05 Cough (principal); K76.89 Other specified diseases of liver; K44.9 Diaphragmatic hernia without obstruction or gangrene
CPT/HCPCS: 71260; Q9967

== ENCOUNTER → 2019-08-06 | Outpatient (REF) | payer OTHER ==
[~2019-08-06] MED LIST changes: -ISOVUE-370 76% 100ML VIAL (Q9967) As Ordered ONE
== END ==
LOC: M SFHCCLAY 10:06
PROVIDERS: ATTEND Family Medicine
DX: R30.0 Dysuria (principal)

== ENCOUNTER → 2019-08-31 | Outpatient (REF) | payer OTHER ==
[2019-08-31 12:55] LABS: APPEARANCE, URINE HAZY (CLEAR); BACTERIA, URINE AUTO 1+ (NEGATIVE); BILIRUBIN, URINE AUTO NEGATIVE (NEGATIVE); BLOOD, URINE BLOOD 1+ (NEGATIVE); COLOR, URINE YELLOW (YELLOW); GLUCOSE, URINE (UA) AUTO NEGATIVE (NEGATIVE); KETONE, URINE AUTO NEGATIVE (NEGATIVE); LEUKOCYTE ESTERASE, URINE AUTO 3+ (NEGATIVE); MUCUS, URINE SMALL (NEGATIVE); NITRITE, URINE AUTO NEGATIVE (NEGATIVE); PROTEIN, URINE AUTO NEGATIVE (NEGATIVE); RBC, URINE AUTO 4 /HPF (0-3); SQUAMOUS EPITHELIAL CELL UR AU 6 /HPF (0-6); TRANSITIONAL EPITHELIAL AUTO 2 /HPF; UROBILINOGEN, URINE AUTO 0.2 mg/dL (0.0-2.0); WBC, URINE AUTO 24 /HPF (0-3)
== END ==
LOC: M LAB REF 12:38
PROVIDERS: ATTEND Obstetrics & Gynecology
DX: N39.0 Urinary tract infection, site not specified (principal)

== ENCOUNTER → 2019-09-17 | Outpatient (REF) | payer OTHER ==
[2019-09-17 16:23] LABS: BASO # 0.1 10^3/uL (0.0-0.2); BASO % 0.5 % (0.0-1.0); EOS # 0.1 10^3/uL (0.0-0.5); HEMATOCRIT 43.5 % (36.0-47.0); LYMPH # 1.9 10^3/uL (1.5-5.0); LYMPH % 18.6 % (24.0-44.0); MEAN CORPUSCULAR HGB CONC 32.2 g/dl (32.0-36.5); MEAN CORPUSCULAR VOLUME 90.1 fl (80.0-96.0); MONO # 0.7 10^3/uL (0.0-0.8); MONO % 6.5 % (0.0-5.0); NEUTROPHILS # 7.5 10^3/uL (1.5-8.5); NEUTROPHILS % 72.9 % (36.0-66.0); PLATELET COUNT, AUTOMATED 471 10^3/uL (150-450); RED BLOOD COUNT 4.83 10^6/uL (4.00-5.40); WHITE BLOOD COUNT 10.3 10^3/uL (4.0-10.0)
[2019-09-17 16:35] LABS: IMMUNOGLOBULIN E 90.2 IU/ML (<100); IMMUNOGLOBULIN G 630 MG/DL (681-1648); IMMUNOGLOBULIN M 46.1 MG/DL (40-230); RHEUMATOID FACTOR QUANT < 10.0 IU/ML (<15.0)
== END ==
LOC: M LABDRAWC 15:55
PROVIDERS: ATTEND Internal Medicine Pulmonary Disease
DX: J45.40 Moderate persistent asthma, uncomplicated (principal)

== ENCOUNTER → 2019-10-05 | Outpatient (REF) | payer OTHER | LOC: M SFHCCLAY 09:29 | PROVIDERS: ATTEND Nurse Practitioner Family | DX: R30.0 Dysuria (principal); N76.0 Acute vaginitis ==

== ENCOUNTER → 2019-10-06 | Outpatient (REF) | payer OTHER ==
[~2019-10-06] MED LIST changes: +AMLO1TAB24 PO; -AMLO5TAB6 PO; +INCR1INH INH; +LISI10TA22 PO; -LISI10TA4 PO; +MONT10TA10 PO; -MONT10TA4 PO; +PANT40TA29 PO; -PANT40TA3 PO
[2019-10-06 16:45] LABS: APPEARANCE, URINE CLEAR (CLEAR); BACTERIA, URINE AUTO 1+ (NEGATIVE); BILIRUBIN, URINE AUTO NEGATIVE (NEGATIVE); BLOOD, URINE BLOOD NEGATIVE (NEGATIVE); COLOR, URINE YELLOW (YELLOW); GLUCOSE, URINE (UA) AUTO NEGATIVE (NEGATIVE); KETONE, URINE AUTO NEGATIVE (NEGATIVE); LEUKOCYTE ESTERASE, URINE AUTO 1+ (NEGATIVE); MUCUS, URINE SMALL (NEGATIVE); NITRITE, URINE AUTO NEGATIVE (NEGATIVE); PROTEIN, URINE AUTO NEGATIVE (NEGATIVE); RBC, URINE AUTO 2 /HPF (0-3); SPECIFIC GRAVITY URINE AUTO 1.014 (1.002-1.035); SQUAMOUS EPITHELIAL CELL UR AU 0 /HPF (0-6); TRANSITIONAL EPITHELIAL AUTO <1 /HPF; UROBILINOGEN, URINE AUTO 0.2 mg/dL (0.0-2.0); WBC, URINE AUTO 31 /HPF (0-3)
== END ==
LOC: M SFHCCLAY 10:55
PROVIDERS: ATTEND Nurse Practitioner Family
DX: R30.0 Dysuria (principal)

== ENCOUNTER → 2019-10-20 | Outpatient (REF) | payer OTHER ==
[~2019-10-20] MED LIST changes: -AMLO1TAB24 PO; +AMLO5TAB6 PO; -INCR1INH INH; -LISI10TA22 PO; +LISI10TA4 PO; -MONT10TA10 PO; +MONT10TA4 PO; -PANT40TA29 PO; +PANT40TA3 PO
[2019-10-20 14:15] LABS: APPEARANCE, URINE CLEAR (CLEAR); BACTERIA, URINE AUTO NEGATIVE (NEGATIVE); BILIRUBIN, URINE AUTO NEGATIVE (NEGATIVE); BLOOD, URINE BLOOD 1+ (NEGATIVE); COLOR, URINE YELLOW (YELLOW); GLUCOSE, URINE (UA) AUTO NEGATIVE (NEGATIVE); KETONE, URINE AUTO NEGATIVE (NEGATIVE); LEUKOCYTE ESTERASE, URINE AUTO 2+ (NEGATIVE); NITRITE, URINE AUTO NEGATIVE (NEGATIVE); PROTEIN, URINE AUTO NEGATIVE (NEGATIVE); RBC, URINE AUTO 2 /HPF (0-3); SPECIFIC GRAVITY URINE AUTO 1.011 (1.002-1.035); SQUAMOUS EPITHELIAL CELL UR AU 0 /HPF (0-6); UROBILINOGEN, URINE AUTO 0.2 mg/dL (0.0-2.0); WBC, URINE AUTO 48 /HPF (0-3)
== END ==
LOC: M LAB REF 13:57
PROVIDERS: ATTEND Obstetrics & Gynecology
DX: N39.0 Urinary tract infection, site not specified (principal)

== ENCOUNTER → 2019-10-23 | Outpatient (CLI) | payer BC, OTHER ==
--- NOTE | 2019-10-24 08:10 | REP ---
KUB: REASON: History of renal calculi. PERTINENT PRIORS: None. FINDINGS: KUB shows the intestinal gas pattern to be nonspecific. The organ silhouettes insofar as delineated are unremarkable. There is no evidence of free intraperitoneal air. There are surgical clips in the right upper quadrant, likely secondary to previous cholecystectomy. The stool pattern appears to be within normal limits. IMPRESSION: Nonspecific. Electronically Signed by Jerry Owusu DO 10/26/2019 09:53 A
== END ==
LOC: M CLY 13:19
PROVIDERS: ATTEND Obstetrics & Gynecology
DX: N20.0 Calculus of kidney (principal)

== ENCOUNTER → 2019-11-12 | Outpatient (REF) | payer OTHER ==
[2019-11-12 11:49] LABS: BASO # 0.1 10^3/uL (0.0-0.2); BASO % 0.9 % (0.0-1.0); EOS # 0.1 10^3/uL (0.0-0.5); EOS % 1.6 % (0.0-3.0); HEMATOCRIT 45.1 % (36.0-47.0); HEMOGLOBIN 14.3 g/dl (12.0-15.5); LYMPH # 1.9 10^3/uL (1.5-5.0); LYMPH % 24.8 % (24.0-44.0); MEAN CORPUSCULAR HEMOGLOBIN 28.9 pg (27.0-33.0); MEAN CORPUSCULAR HGB CONC 31.7 g/dl (32.0-36.5); MEAN CORPUSCULAR VOLUME 91.1 fl (80.0-96.0); MONO # 0.7 10^3/uL (0.0-0.8); MONO % 9.7 % (0.0-5.0); NEUTROPHILS # 4.6 10^3/uL (1.5-8.5); NEUTROPHILS % 62.1 % (36.0-66.0); PLATELET COUNT, AUTOMATED 435 10^3/uL (150-450); RED BLOOD COUNT 4.95 10^6/uL (4.00-5.40); WHITE BLOOD COUNT 7.5 10^3/uL (4.0-10.0)
[2019-11-12 12:39] LABS: ALBUMIN 3.9 GM/DL (3.2-5.2); ALT/SGPT 29 U/L (12-78); BILIRUBIN,TOTAL 0.7 MG/DL (0.2-1.0); BLOOD UREA NITROGEN 17 MG/DL (7-18); CALCIUM LEVEL 9.5 MG/DL (8.5-10.1); CARBON DIOXIDE LEVEL 25 MEQ/L (21-32); CHLORIDE LEVEL 107 MEQ/L (98-107); CHOLESTEROL LEVEL 219 MG/DL (<200); CHOLESTEROL RISK RATIO 4.055 (<5); CREATININE FOR GFR 0.84 MG/DL (0.55-1.30); FREE T4 1.15 NG/DL (0.76-1.46); GLOMERULAR FILTRATION RATE > 60.0 (>51); GLUCOSE, FASTING 100 MG/DL (70-100); HDL CHOLESTEROL 54 MG/DL (>40); LDL CHOLESTEROL 140 MG/DL (<100); NON-HDL-C 165 MG/DL; POTASSIUM SERUM 4.5 MEQ/L (3.5-5.1); SODIUM LEVEL 139 MEQ/L (136-145); TRIGLYCERIDES LEVEL 125 MG/DL (<150)
[2019-11-12 12:58] LABS: HEMOGLOBIN A1c 5.8 %
== END ==
LOC: M SFHCCLAY 08:05
PROVIDERS: ATTEND Nurse Practitioner Family
DX: E78.2 Mixed hyperlipidemia (principal); I10 Essential (primary) hypertension; E03.9 Hypothyroidism, unspecified; K21.9 Gastro-esophageal reflux disease without esophagitis; Z13.1 Encounter for screening for diabetes mellitus

== ENCOUNTER → 2019-11-16 | Outpatient (REF) | payer OTHER ==
[2019-11-16 16:19] LABS: APPEARANCE, URINE CLOUDY (CLEAR); BACTERIA, URINE AUTO 2+ (NEGATIVE); BILIRUBIN, URINE AUTO NEGATIVE (NEGATIVE); BLOOD, URINE BLOOD NEGATIVE (NEGATIVE); COLOR, URINE YELLOW (YELLOW); GLUCOSE, URINE (UA) AUTO NEGATIVE (NEGATIVE); KETONE, URINE AUTO NEGATIVE (NEGATIVE); LEUKOCYTE ESTERASE, URINE AUTO 3+ (NEGATIVE); MUCUS, URINE SMALL (NEGATIVE); NITRITE, URINE AUTO POSITIVE (NEGATIVE); PROTEIN, URINE AUTO NEGATIVE (NEGATIVE); RBC, URINE AUTO 1 /HPF (0-3); SQUAMOUS EPITHELIAL CELL UR AU 13 /HPF (0-6); UROBILINOGEN, URINE AUTO 0.2 mg/dL (0.0-2.0); WBC, URINE AUTO 157 /HPF (0-3)
== END ==
LOC: M SMT 14:59
PROVIDERS: ATTEND Nurse Practitioner Family
DX: R30.0 Dysuria (principal)

== ENCOUNTER → 2019-11-20 | Outpatient (CLI) | payer BC, OTHER ==
--- NOTE | 2019-11-21 08:26 | REP ---
REASON: History of UTI. There are no priors for comparison. The right kidney measures 10.8 x 5.8 x 5.2 cm. The renal cortical echoes are within normal limits. The cortical medullary differentiation is preserved. No cystic or solid mass. There is no hydronephrosis. Left kidney measures 10.5 x 5.7 x 5.5 cm. In the mid pole region, there is a hypoechoic solid appearing nodule, which measures 4 x 3 x 2 cm. There are two hypoechoic nodules seen in the upper pole one measuring 2.1 x 2.1 x 1.5 cm and the other 1.6 x 1.4 x 1.5 cm. In the inferior pole region, there is an additional tiny hypoechoic structure. IMPRESSION: 1. In the left kidney, there is either solid mass or a column of Jarad. The exam is somewhat limited by the technical parameters utilized in obtaining the exam. Two complex-appearing cysts also seen in the left kidney. Since there are no priors for comparison, I would recommend pre and post contrast enhanced renal MRI for further evaluation. 2. Normal appearing right kidney. Electronically Signed by Jerry Owusu DO 11/30/2019 07:43 A
--- NOTE | 2019-11-21 08:34 | REP ---
REASON: UTI. I have been given history that the patient has a bladder mesh. Do to the marked shadowing caused by the suspected aforementioned artifact, urinary bladder images are suboptimal and nondiagnostic. Electronically Signed by Jerry Owusu DO 11/30/2019 07:43 A
== END ==
LOC: M LRY 13:01
PROVIDERS: ATTEND Nurse Practitioner Family
DX: N28.1 Cyst of kidney, acquired (principal); N39.0 Urinary tract infection, site not specified

== ENCOUNTER 2019-12-30 08:51 | Day surgery (SDC) | payer BC, OTHER ==
[~2019-12-30 08:51] MED LIST changes: +AMLO1TAB24 PO; -AMLO5TAB6 PO; +LIDOCAINE 2% 100MG/5ML SDV (FOR ANES.) As Ordered ONE; +MIDAZOLAM INJ 2MG/2ML VIAL (J2250 PER 1MG) As Ordered ONE; +ONDANSETRON 4MG/2ML VIAL As Ordered ONE; +PANT40TA29 PO; -PANT40TA3 PO; +SCOPOLAMINE 1MG TRANSDERMAL PATCH As Ordered ONE; +ceFAZolin 2 GM/D5W 50 ML IV BAG (J0690 PER 500MG) As Ordered ONE; +fentaNYL 100 MCG/2 ML INJECTION (J3010) As Ordered ONE; +propofoL 200 MG/20 ML VIAL As Ordered ONE
[2019-12-30] MEDS ORDERED: dexameTHASONE 4 MG/ML 1ML VIAL (J1100 PER 1MG) As Ordered ONE (09:04)
[2019-12-30] MEDS ORDERED: ACETAMINOPHEN 1000MG 100ML IV BTL (OFIRMEV) (J0131 PER 10MG) As Ordered ONE (09:04)
[2019-12-30] MEDS ORDERED: LIDOCAINE 2% MDV 20ML VIAL As Ordered ONE (09:11)
[2019-12-30] MEDS ORDERED: METOCLOPRAMIDE INJ 10MG/2ML VIAL (J2765 PER 1) As Ordered ONE (09:15)
[2019-12-30] MEDS ORDERED: ePHEDrine SULFATE 25 MG/5 ML(5MG/ML) SYRINGE As Ordered ONE (09:23)
[2020-01-29] MEDS ORDERED: INCR1INH INH (09:37)
[2020-02-17 13:08] LABS: Ca Ox Monohydrate 80 % (.); Size 5x9 mm (.)
--- NOTE | 2020-03-03 11:36 | RO ---
DATE OF OPERATION: 12/30/2019 PREOPERATIVE DIAGNOSIS: Bladder calculus. POSTOPERATIVE DIAGNOSES: * Bladder calculus. * Interstitial cystitis. * Extrusion of mesh material. SURGEON: Dr. Ryan Marc. ANESTHESIA: General. INDICATIONS FOR OPERATION: This is a 59-year-old white female who was seen in the office for recurrent urinary tract infections and found to have a calculus attached to a bladder stitch from prior urethral suspension. She was therefore brought to the operating room for stone removal and incision of bladder stitch. DESCRIPTION OF OPERATION: The patient was placed on the table in the supine position and given general anesthesia. She was then placed in the lithotomy position, prepped with Betadine paint, draped in an aseptic manner, and timeout was performed. A 22-Andorran cystoscope was then inserted into the meatus and advanced under direct vision of a 30 lens to the bladder. In the bladder, the mucosa appeared normal and the patient's calculus was found attached to a stitch on the left floor of the bladder. Using a cystoscopic scissors, the material to which the stone was attached, was cut. During this process, it was discovered that it was just not a bladder stitch, but an extrusion of the urethral suspension mesh. This did not cut well with the endoscopic scissors. The stone was freed from the material and as much of the excess mesh was cut as possible and an attempt was made to bury the tissue under the mucosa by pulling up on the mucosa with biopsy forceps. This was less than successful. The tissue that was bleeding was then cauterized. Some of the tissue around the mesh could not be used to bury the material. Upon emptying the bladder, the patient was found to have a large amount of capillary bleeding from interstitial cystitis. Then, 60 cc of 2% Lidocaine was then injected into the bladder and left in place when the cystoscope was removed. The patient may need a further procedure to help bury the mesh graft material to prevent further stone formation. She will also be seen in the office for followup and discussion of interstitial cystitis. ESTIMATED BLOOD LOSS: Less than 5 mL. CAKE ICER AND PACKER: None. COMPLICATIONS: None. SPECIMENS: None. DRAINS: None. [facility]
== END 2019-12-30 11:15 | disposition home or self-care (01) ==
LOC: M SDC 08:51
PROVIDERS: ATTEND Urology
DX: N21.0 Calculus in bladder (principal); N30.10 Interstitial cystitis (chronic) without hematuria; T83.722A Exposure of implanted urethral mesh into urethra, initial encounter; I10 Essential (primary) hypertension; E03.9 Hypothyroidism, unspecified; J44.9 Chronic obstructive pulmonary disease, unspecified; Z79.899 Other long term (current) drug therapy; Z88.8 Allergy status to other drugs, medicaments and biological substances
CPT/HCPCS: 52310; 82365; 88300; J0131; J0690; J1100; J2250; J2405; J2765; J3010

== ENCOUNTER → 2020-01-05 | Outpatient (REF) | payer BC ==
[~2020-01-05] MED LIST changes: +INCR1INH INH; -LIDOCAINE 2% 100MG/5ML SDV (FOR ANES.) As Ordered ONE; -MIDAZOLAM INJ 2MG/2ML VIAL (J2250 PER 1MG) As Ordered ONE; -ONDANSETRON 4MG/2ML VIAL As Ordered ONE; -SCOPOLAMINE 1MG TRANSDERMAL PATCH As Ordered ONE; -ceFAZolin 2 GM/D5W 50 ML IV BAG (J0690 PER 500MG) As Ordered ONE; -fentaNYL 100 MCG/2 ML INJECTION (J3010) As Ordered ONE; -propofoL 200 MG/20 ML VIAL As Ordered ONE
[2020-02-04 19:58] LABS: APPEARANCE, URINE HAZY (CLEAR); BACTERIA, URINE AUTO NEGATIVE (NEGATIVE); BILIRUBIN, URINE AUTO NEGATIVE (NEGATIVE); BLOOD, URINE BLOOD 2+ (NEGATIVE); COLOR, URINE YELLOW (YELLOW); GLUCOSE, URINE (UA) AUTO NEGATIVE (NEGATIVE); KETONE, URINE AUTO NEGATIVE (NEGATIVE); LEUKOCYTE ESTERASE, URINE AUTO NEGATIVE (NEGATIVE); MUCUS, URINE SMALL (NEGATIVE); NITRITE, URINE AUTO NEGATIVE (NEGATIVE); PROTEIN, URINE AUTO NEGATIVE (NEGATIVE); RBC, URINE AUTO 25 /HPF (0-3); SPECIFIC GRAVITY URINE AUTO 1.009 (1.002-1.035); SQUAMOUS EPITHELIAL CELL UR AU 6 /HPF (0-6); UROBILINOGEN, URINE AUTO 0.2 mg/dL (0.0-2.0); WBC, URINE AUTO 3 /HPF (0-3)
== END ==
LOC: M SMT 10:11
PROVIDERS: ATTEND Nurse Practitioner Family
DX: N39.0 Urinary tract infection, site not specified (principal)

== ENCOUNTER → 2020-01-12 | Outpatient (REF) | payer BC, OTHER ==
[2020-03-23 03:13] LABS: IMMUNOGLOBULIN M 40.3 MG/DL (40-230)
== END ==
LOC: M LABDRAWC 16:35
PROVIDERS: ATTEND Internal Medicine Pulmonary Disease
DX: J45.40 Moderate persistent asthma, uncomplicated (principal)

== ENCOUNTER → 2020-01-22 | Outpatient (CLI) | payer BC ==
--- NOTE | 2020-01-22 15:40 | REPMRS ---
Patient History The patient states she had a clinical breast exam in January 2019.Family history of prostate cancer under age 50 in brother, prostate cancer in father, pancreatic cancer at age 70 in mother, endometrial cancer at age 50 or over in sister. Took hormonal contraceptives for 36 years. Digital Woman Screen Mammo: January 22, 2020 - Exam #: [id number] Bilateral CC and MLO view(s) were taken. Technologist: Carol Broussard, Technologist Prior study comparison: January 20, 2019, bilateral digital woman screen mammo performed at [facility]. January 17, 2018, bilateral digital woman screen mammo performed at [facility]. January 11, 2017, digital woman screen mammo performed at [facility]. FINDINGS: The breast tissue is almost entirely fat. The Volpara volumetric breast density category is: A. There has been no change in the appearance of the mammogram from the prior studies. There is no interval development of dominant mass, architectural distortion, or grouped microcalcification typical of malignancy. 3-D tomosynthesis shows no additional findings. Assessment: BI-RADS/ACR category 1 mammogram. Negative Mammogram. Recommendation Routine screening mammogram of both breasts in 1 year (for women over age 40). This patient's Lifetime Breast Cancer RIsk is estimated at 7.0 %. This mammogram was interpreted with the aid of an FDA-approved computer-aided dectection system. Electronically Signed By: Herrera Briceño MD 01/22/20 1217
== END ==
LOC: EDSEX → M WHC 12:50 → EEVIPCON 13:30
PROVIDERS: ATTEND Obstetrics & Gynecology
DX: Z12.31 Encounter for screening mammogram for malignant neoplasm of breast (principal); Z80.0 Family history of malignant neoplasm of digestive organs; Z80.49 Family history of malignant neoplasm of other genital organs

== ENCOUNTER → 2020-01-30 | Outpatient (CLI) | payer BC, OTHER | LOC: M LABSMTC 08:47 | PROVIDERS: ATTEND Anesthesiology | DX: Z01.812 Encounter for preprocedural laboratory examination (principal); Z20.828 Contact with and (suspected) exposure to other viral communicable diseases | CPT/HCPCS: C9803; U0003 ==

== ENCOUNTER 2020-02-04 06:52 | Day surgery (SDC) | payer BC, OTHER ==
[~2020-02-04] VITALS: Ht 162.6 cm; Wt 88.0 kg
[~2020-02-04 06:52] MED LIST changes: +LIDOCAINE 2% 100MG/5ML SDV (FOR ANES.) As Ordered ONE; +LR 1,000 ML IV ONE; +MIDAZOLAM INJ 2MG/2ML VIAL (J2250 PER 1MG) As Ordered ONE; +ONDANSETRON 4MG/2ML VIAL As Ordered ONE; +PHENYLephrine HCL 500 MCG/5 ML (100MCG/ML) SYRINGE (J2370) As Ordered ONE; +ROCURONIUM BROMIDE 50 MG/5 ML VIAL As Ordered ONE; +SUGAMMADEX SODIUM 500 MG/5 ML VIAL (BRIDION) As Ordered ONE; +ceFAZolin SOD 2 GM in IV 1 EA IV ONE; +dexameTHASONE 4 MG/ML 1ML VIAL (J1100 PER 1MG) As Ordered ONE; +ePHEDrine SULFATE 25 MG/5 ML(5MG/ML) SYRINGE As Ordered ONE; +fentaNYL 250 MCG/5 ML INJECTION (J3010) As Ordered ONE; +propofoL 200 MG/20 ML VIAL As Ordered ONE
[2020-02-04] MEDS ORDERED: SCOPOLAMINE 1MG TRANSDERMAL PATCH As Ordered ONE (07:34)
[2020-02-04] MEDS ORDERED: SCOPOLAMINE 1MG TRANSDERMAL PATCH TOP ONE (08:00)
[2020-02-04] MEDS ORDERED: ACETAMINOPHEN 1000MG 100ML IV BTL (OFIRMEV) (J0131 PER 10MG) As Ordered ONE (08:34)
[2020-02-04] MEDS ORDERED: VASOPRESSIN INJ 20 UNITS/ML VIAL As Ordered ONE (08:48)
[2020-02-04] MEDS ORDERED: ROCURONIUM BROMIDE 50 MG/5 ML VIAL As Ordered ONE (09:12)
[2020-02-04] MEDS ORDERED: HYDROMORPHONE HCL 0.5 MG/ 0.5 ML SYRINGE (J1170 PER 1) IV PRN (11:15)
[2020-02-04] MEDS ORDERED: ONDANSETRON 4MG/2ML VIAL IV PRN (11:15)
[2020-02-04] MEDS ORDERED: fentaNYL 100 MCG/2 ML INJECTION (J3010) IV PRN (11:15)
[2020-02-04] MEDS ORDERED: LR 1,000 ML IV SCH ×2 (11:15→11:30)
[2020-02-04] MEDS ORDERED: METOCLOPRAMIDE INJ 10MG/2ML VIAL (J2765 PER 1) IV PRN (11:15)
[2020-02-04] MEDS ORDERED: oxyCODONE 5MG TAB PO PRN (11:15)
[2020-02-04] MEDS ORDERED: NORCO, ANEXSIA 5/325MG TABLET (HYDROcodone/ACETAMINOPHEN) PO PRN (11:30)
[2020-02-04] MEDS ORDERED: IBUPROFEN 600MG TAB PO PRN (11:30)
[2020-02-04 12:50] VITALS: BP 122/83
--- NOTE | 2020-02-22 10:38 | RO ---
DATE OF OPERATION: 02/04/2020 PREOPERATIVE DIAGNOSIS/INDICATIONS FOR SURGERY: Mesh eroded into bladder. POSTOPERATIVE DIAGNOSIS: Mesh eroded into bladder. PROCEDURE: Cystourethroscopy with subsequent vaginal mesh resection and closure. SURGEON: Dr. Maria Dolores Etienne SPRING COILING MACHINE SETTER: Beverly Mcginnis ANESTHESIA: General endotracheal anesthesia. SPECIMENS: Portion of mesh as noted. BRIEF DESCRIPTION OF PROCEDURE AND FINDINGS: Julita was brought to the operating room where sufficient general endotracheal anesthesia was induced. She was prepped and draped and positioned in the usual sterile fashion in lithotomy for the initial cystourethroscopy. After she was prepped and positioned and of course she had previously been using an Estring and that was removed before the prep and thrown out. After she was draped, prepped and positioned the cystoscope was placed and the bladder evaluated. The ureters themselves were normal in appearance as was the trigone. Along the right side there was a normal appearance as expected and along the patients left side both lateral and caudad from the urethral orifice there was a small area of erosion into the bladder wall. There were multiple pictures taken to document this. Just an edge with the pointed edges of the mesh were visible, not the entire mesh within the bladder and there was also some evidence of sort of cautery of that mesh, that is very much consistent with the previous cystoscopy where apparently he tried to lift the mucosa over the mesh and ended up needing to cauterize a little for some bleeding so there is a little defect along the mesh wall which I think is previous surgery-related but of course I could not get those pictures because of the hospitals computer difficulties so I can surmise from what was written in the op report, but of course I was not present for that. I can see there is not full thickness of the mesh in the bladder so it is really not consistent with the mesh being placed into the bladder because in those instances you have sort of an in-wound and out-wound and full thickness of mesh there which this is definitely not, just sort of the edge of it and of course some inflammation of the bladder around that area. I tried initially to palpate this from below and we could certainly where our vaginal finger was deflecting the bladder and so decision was made to try to go vaginally without assistance from above. We injected Vasopressin and made that incision not in the sulcus but lateral to midline on the patients left side about two-thirds of the way toward the sulcus from the midline and then dissected out toward the sulcus so you would have a little more skin over that thin area and dissected out to where the tract of that mesh ought to be and then we could scope. I could see my finger under the mesh using the cystoscope but I could not palpate it and I did not want to just dissect into the bladder from below so we went ahead and placed a suprapubic 3 mm laparoscopic port, placed the patient in 45 degree Trendelenburg, first palpated, observed, made sure that we did not have any sense of any bowel that low in the belly and took care as we were carefully dissecting through the layers and entered directly suprapubically into the bladder as one does with a suprapubic catheter but did so with the 3 mm laparoscopic port. We were then able to place a grasper through this 3 mm port and grasp the area of the bladder and the mesh where it was extending through and then placed pressure from above to bring that piece out of the bladder and down to my dissection vaginally. We placed that and I had Beverly Mcginnis hold that so I could grab it from below and carefully grasped the tissues. We could not see the mesh from below at this point of course but that is not really atypical given the amount of normal scarring in that occurs with mesh. We then let go of the mesh from above, went ahead and scoped her again and could see that we had indeed removed the mesh from the bladder excepting one little portion at the edge which we were able to grasp from above and bring up that it somehow becomes and then went ahead working from below and carefully dissected in this area of tissue until we could actually see the mesh. I did come a little bit medial from our initial incision with the mesh but I did not want to take all of it out because the patient had been dry postoperatively so I came over about senior care between the sulcus and midline and transected the mesh on that medial aspect and then dissected out laterally and the mesh came free, it did not have the attached anchor so we carefully dissected the tissues away from it and were able to dissect past the area where there is a little defect in it consistent with where the previous efforts had been made and then somewhat lateral to this the mesh came free without the anchor so we removed that whole portion and used 4-0 Monocryl to close at the mucosal layer and then 2-0 antibiotic-impregnated Vicryl to close the muscular layer there, also used that to close the skin. After we had closed with just the Monocryl we looked again up top and that is when we saw that tiny segment of the mesh we were able to remove, like one interlink of it and we were able to see that there was no longer any mesh in the bladder. There was a little bit from the skin edge, this is not particularly rapid, not particularly concerning. We were also able to see even just with the Monocryl we already had a watertight seal most likely because the actual defect in the bladder was quite well. We did put two more deep layers of 2-0 antibiotic-impregnated Vicryl and then skin layer so of course we did a multilayer closure for this patient. We had good hemostasis, again had watertight closure. We went ahead and placed a Connelly postop and removed the suprapubic port. The procedure was ended. Estimated blood loss for the procedure about 25 mL. Fluid replacement was Crystalloid. Complications: None. CONDITION AND DISPOSITION: The patient tolerated the procedure well and was recovering in the recovery room in good condition. DAVIS
== END 2020-02-04 13:47 | disposition home or self-care (01) ==
LOC: M SDC 06:52
PROVIDERS: ATTEND Obstetrics & Gynecology
DX: T83.712A Erosion of implanted urethral mesh to surrounding organ or tissue, initial encounter (principal); X58.XXXA Exposure to other specified factors, initial encounter; E03.9 Hypothyroidism, unspecified; I10 Essential (primary) hypertension; J44.9 Chronic obstructive pulmonary disease, unspecified; J45.909 Unspecified asthma, uncomplicated; K21.9 Gastro-esophageal reflux disease without esophagitis; K57.32 Diverticulitis of large intestine without perforation or abscess without bleeding; K58.9 Irritable bowel syndrome, unspecified; Z79.890 Hormone replacement therapy; Z79.899 Other long term (current) drug therapy; Z88.8 Allergy status to other drugs, medicaments and biological substances; Z90.710 Acquired absence of both cervix and uterus
CPT/HCPCS: 57426; 88300; J0131; J0690; J1100; J2250; J2370; J2405; J3010

== ENCOUNTER → 2020-02-16 | Outpatient (CLI) | payer BC, OTHER ==
[~2020-02-16] MED LIST changes: +CYSTO-CONRAY II 17.2% 250ML VIAL (Q9958) As Ordered ONE; -LIDOCAINE 2% 100MG/5ML SDV (FOR ANES.) As Ordered ONE; -LR 1,000 ML IV ONE; -MIDAZOLAM INJ 2MG/2ML VIAL (J2250 PER 1MG) As Ordered ONE; -ONDANSETRON 4MG/2ML VIAL As Ordered ONE; -PHENYLephrine HCL 500 MCG/5 ML (100MCG/ML) SYRINGE (J2370) As Ordered ONE; -ROCURONIUM BROMIDE 50 MG/5 ML VIAL As Ordered ONE; -SUGAMMADEX SODIUM 500 MG/5 ML VIAL (BRIDION) As Ordered ONE; -ceFAZolin SOD 2 GM in IV 1 EA IV ONE; -dexameTHASONE 4 MG/ML 1ML VIAL (J1100 PER 1MG) As Ordered ONE; -ePHEDrine SULFATE 25 MG/5 ML(5MG/ML) SYRINGE As Ordered ONE; -fentaNYL 250 MCG/5 ML INJECTION (J3010) As Ordered ONE; -propofoL 200 MG/20 ML VIAL As Ordered ONE
--- NOTE | 2020-02-19 11:37 | REP ---
CYSTOGRAM This procedure was performed by JOSE EDUARDO Mallory, under the direct supervision of Dr. Candelaria. The images were reviewed with Dr. Candelaria prior to dictation. The patient arrived to the department with a preexisting Connelly catheter. 250 mL of Cysto-Conray II was instilled into the bladder in a retrograde flow. The bladder appears to be in normal position and contour. There is no evidence of extravasation or urethral reflux. There is no noticeable postvoid residual. IMPRESSION: Unremarkable cystogram. 0.1 minutes of fluoroscopy time was utilized for this procedure. DAVIS
== END ==
LOC: M RADPRO 11:54
PROVIDERS: ATTEND Obstetrics & Gynecology
DX: N30.00 Acute cystitis without hematuria (principal)
CPT/HCPCS: 51610; 74430; Q9958

== ENCOUNTER → 2020-04-26 | Outpatient (REF) | payer OTHER ==
[~2020-04-26] MED LIST changes: -CYSTO-CONRAY II 17.2% 250ML VIAL (Q9958) As Ordered ONE; -MONT10TA4 PO; +MONT5TAB2 PO
[2020-04-26 11:47] LABS: BASO # 0.1 10^3/uL (0.0-0.2); BASO % 1.1 % (0.0-1.0); EOS # 0.2 10^3/uL (0.0-0.5); EOS % 2.3 % (0.0-3.0); HEMATOCRIT 43.4 % (36.0-47.0); HEMOGLOBIN 14.1 g/dl (12.0-15.5); LYMPH # 1.8 10^3/uL (1.5-5.0); LYMPH % 27.1 % (24.0-44.0); MEAN CORPUSCULAR HEMOGLOBIN 29.4 pg (27.0-33.0); MEAN CORPUSCULAR HGB CONC 32.5 g/dl (32.0-36.5); MEAN CORPUSCULAR VOLUME 90.4 fl (80.0-96.0); MONO # 0.5 10^3/uL (0.0-0.8); MONO % 8.2 % (0.0-5.0); PLATELET COUNT, AUTOMATED 467 10^3/uL (150-450); WHITE BLOOD COUNT 6.6 10^3/uL (4.0-10.0)
[2020-04-26 12:10] LABS: HEMOGLOBIN A1c 5.7 %
[2020-04-26 12:22] LABS: ALBUMIN 3.6 GM/DL (3.2-5.2); ALT/SGPT 24 U/L (12-78); BILIRUBIN,TOTAL 0.5 MG/DL (0.2-1.0); BLOOD UREA NITROGEN 19 MG/DL (7-18); CALCIUM LEVEL 9.2 MG/DL (8.5-10.1); CARBON DIOXIDE LEVEL 22 MEQ/L (21-32); CHLORIDE LEVEL 112 MEQ/L (98-107); CHOLESTEROL LEVEL 211 MG/DL (<200); CHOLESTEROL RISK RATIO 3.907 (<5); CREATININE FOR GFR 0.78 MG/DL (0.55-1.30); FREE T4 1.25 NG/DL (0.76-1.46); GLOMERULAR FILTRATION RATE > 60.0 (>51); GLUCOSE, FASTING 110 MG/DL (70-100); HDL CHOLESTEROL 54 MG/DL (>40); LDL CHOLESTEROL 135 MG/DL (<100); NON-HDL-C 157 MG/DL; POTASSIUM SERUM 4.1 MEQ/L (3.5-5.1); SODIUM LEVEL 140 MEQ/L (136-145); TOTAL PROTEIN 6.7 GM/DL (6.4-8.2); TRIGLYCERIDES LEVEL 109 MG/DL (<150)
== END ==
LOC: M SFHCCLAY 08:14
PROVIDERS: ATTEND Nurse Practitioner Family
DX: E03.9 Hypothyroidism, unspecified (principal); I10 Essential (primary) hypertension; E78.2 Mixed hyperlipidemia; K21.9 Gastro-esophageal reflux disease without esophagitis; Z13.1 Encounter for screening for diabetes mellitus

== ENCOUNTER → 2020-10-18 | Outpatient (REF) | payer OTHER ==
[~2020-10-18] MED LIST changes: +LISI10TA22 PO; -LISI10TA4 PO; +MONT10TA10 PO; -MONT5TAB2 PO
[2020-10-18 12:28] LABS: ALBUMIN 3.6 GM/DL (3.2-5.2); ALT/SGPT 23 U/L (12-78); BILIRUBIN,TOTAL 0.6 MG/DL (0.2-1.0); BLOOD UREA NITROGEN 17 MG/DL (7-18); CARBON DIOXIDE LEVEL 26 MEQ/L (21-32); CHLORIDE LEVEL 110 MEQ/L (98-107); CHOLESTEROL LEVEL 237 MG/DL (<200); CHOLESTEROL RISK RATIO 4.157 (<5); CREATININE FOR GFR 0.77 MG/DL (0.55-1.30); FREE T4 1.09 NG/DL (0.76-1.46); GLOMERULAR FILTRATION RATE > 60.0 (>51); GLUCOSE, FASTING 99 MG/DL (70-100); HDL CHOLESTEROL 57 MG/DL (>40); LDL CHOLESTEROL 161 MG/DL (<100); NON-HDL-C 180 MG/DL; POTASSIUM SERUM 4.1 MEQ/L (3.5-5.1); SODIUM LEVEL 142 MEQ/L (136-145); TOTAL PROTEIN 6.7 GM/DL (6.4-8.2); TRIGLYCERIDES LEVEL 93 MG/DL (<150)
[2020-10-18 13:07] LABS: HEMOGLOBIN A1c 5.2 %
== END ==
LOC: M SFHCCLAY 08:28
PROVIDERS: ATTEND Nurse Practitioner Family
DX: I10 Essential (primary) hypertension (principal); R73.03 Prediabetes

== ENCOUNTER → 2020-12-06 | Outpatient (REF) | payer OTHER ==
[~2020-12-06] MED LIST changes: +BACT800T5 PO; +HYDR-3713 PO; -MONT10TA10 PO; +MONT10TA97 PO; +TIOT18INH INH
== END ==
LOC: M SFHCCAPE 13:16
PROVIDERS: ATTEND Physician Assistant
DX: R30.0 Dysuria (principal)

== ENCOUNTER → 2020-12-08 | Outpatient (REF) | payer OTHER ==
[~2020-12-08] MED LIST changes: -BACT800T5 PO; -HYDR-3713 PO; +MONT10TA10 PO; -MONT10TA97 PO; -TIOT18INH INH
== END ==
LOC: M SFHCCAPE 15:48
PROVIDERS: ATTEND Physician Assistant
DX: R30.0 Dysuria (principal)

== ENCOUNTER → 2021-02-02 | Outpatient (REF) | payer OTHER ==
[2021-02-02 13:08] LABS: BACTERIA, URINE AUTO NEGATIVE (NEGATIVE); RBC, URINE AUTO 0 /HPF (0-3); SQUAMOUS EPITHELIAL CELL UR AU 6 /HPF (0-6); WBC, URINE AUTO 1 /HPF (0-3)
== END ==
LOC: M SMT 12:45
PROVIDERS: ATTEND Specialist
DX: R30.0 Dysuria (principal)

== ENCOUNTER → 2021-03-24 | Outpatient (CLI) | payer BC, OTHER ==
[~2021-03-24] MED LIST changes: +TIOT18INH INH
--- NOTE | 2021-03-24 16:07 | REPMRS ---
Patient History The patient states she had a clinical breast exam in February 2021. Family history of prostate cancer under age 50 in brother, prostate cancer in father, pancreatic cancer at age 70 in mother, endometrial cancer at age 50 or over in sister. Took hormonal contraceptives for 36 years. 10 lb intentional weight loss. Pfizer vaccine 08/05/20 left arm. 08/26/20 left arm. Patient states no breast complaints today. Patient has signed MRS History Sheet. Digital Woman Screen Mammo: March 24, 2021 - Exam #: [id number] Bilateral CC and MLO view(s) were taken. Technologist: RT John Prior study comparison: January 22, 2020, bilateral digital woman screen mammo performed at [facility]. January 20, 2019, bilateral digital woman screen mammo performed at [facility]. FINDINGS: The breast tissue is almost entirely fat. Screening. Digital screening (2D) mammography was performed bilaterally in the CC and MLO projections. Additionally, breast tomosynthesis (3D mammography) was performed bilaterally in the CC and MLO projections. Todays exam was compared to the prior exam/exams. By history, the patient has no complaints of a palpable breast abnormality or other significant breast complaints. The Volpara volumetric breast density category is A, the breasts are almost entirely fatty. The breasts are unchanged in size and shape. There are no leatha-soft tissue densities or spiculated masses. There is no internal architectural distortion. There are no suspicious leatha-calcific clusters. Skin thickening or nipple retraction is not present. IMPRESSION: BI-RADS Category 2- Benign Findings. There is no evidence of malignant alteration of the breasts. Followup examination recommended in one year. The lifetime Tyrer-Cuzick score is 6.8% This mammogram was read with the assistance of Genemation,an FDA approved computer aided detection system for mammography. Negative x-ray reports should not delay surgical consultation if a dominant or clinically suspicious mass is present. Not all breast cancers can be identified by mammography. Therefore, we recommend that you continue to perform regular breast self-examination and physical examination and then promptly contact your physician of any concerns or changes. Adenosis and dense breasts may obscure an underlying neoplasm. No significant changes when compared with prior studies. Assessment: BI-RADS/ACR category 2 mammogram. Benign Findings. Recommendation Routine screening mammogram of both breasts in 1 year. Electronically Signed By: Murali Best MD 03/24/21 [id number]
== END ==
LOC: M WHC 10:46
PROVIDERS: ATTEND Obstetrics & Gynecology
DX: Z12.31 Encounter for screening mammogram for malignant neoplasm of breast (principal)

== ENCOUNTER → 2021-03-27 | Outpatient (CLI) | payer BC, OTHER | LOC: M LABSMTC 09:07 | PROVIDERS: ATTEND Anesthesiology | DX: Z01.812 Encounter for preprocedural laboratory examination (principal); Z11.52 Encounter for screening for COVID-19 ==

== ENCOUNTER → 2021-03-30 | Outpatient (REF) | payer OTHER ==
[2021-03-31 12:02] LABS: APPEARANCE, URINE CLEAR (CLEAR); BACTERIA, URINE AUTO NEGATIVE (NEGATIVE); BILIRUBIN, URINE AUTO NEGATIVE (NEGATIVE); BLOOD, URINE BLOOD NEGATIVE (NEGATIVE); COLOR, URINE STRAW (YELLOW); GLUCOSE, URINE (UA) AUTO NEGATIVE (NEGATIVE); KETONE, URINE AUTO NEGATIVE (NEGATIVE); LEUKOCYTE ESTERASE, URINE AUTO NEGATIVE (NEGATIVE); MUCUS, URINE SMALL (NEGATIVE); NITRITE, URINE AUTO NEGATIVE (NEGATIVE); PROTEIN, URINE AUTO NEGATIVE (NEGATIVE); RBC, URINE AUTO 0 /HPF (0-3); SPECIFIC GRAVITY URINE AUTO 1.006 (1.002-1.035); SQUAMOUS EPITHELIAL CELL UR AU 2 /HPF (0-6); UROBILINOGEN, URINE AUTO 0.2 mg/dL (0.0-2.0); WBC, URINE AUTO 0 /HPF (0-3)
[2021-03-31 12:10] LABS: BASO # 0.1 10^3/uL (0.0-0.2); BASO % 0.9 % (0.0-1.0); EOS # 0.1 10^3/uL (0.0-0.5); HEMOGLOBIN 14.2 g/dl (12.0-15.5); LYMPH % 22.6 % (24.0-44.0); MEAN CORPUSCULAR HGB CONC 31.6 g/dl (32.0-36.5); MONO # 0.7 10^3/uL (0.0-0.8); MONO % 8.6 % (2.0-8.0); NEUTROPHILS # 5.7 10^3/uL (1.5-8.5); NEUTROPHILS % 66.4 % (36.0-66.0); PLATELET COUNT, AUTOMATED 526 10^3/uL (150-450); RED BLOOD COUNT 4.89 10^6/uL (4.00-5.40); WHITE BLOOD COUNT 8.6 10^3/uL (4.0-10.0)
[2021-03-31 13:04] LABS: ALBUMIN 3.9 GM/DL (3.2-5.2); ALT/SGPT 29 U/L (12-78); BILIRUBIN,TOTAL 0.6 MG/DL (0.2-1.0); BLOOD UREA NITROGEN 14 MG/DL (7-18); CALCIUM LEVEL 9.9 MG/DL (8.5-10.1); CARBON DIOXIDE LEVEL 25 MEQ/L (21-32); CHLORIDE LEVEL 105 MEQ/L (98-107); CREATININE FOR GFR 0.87 MG/DL (0.55-1.30); GLOMERULAR FILTRATION RATE > 60.0 (>51); GLUCOSE, FASTING 90 MG/DL (70-100); POTASSIUM SERUM 4.6 MEQ/L (3.5-5.1); SODIUM LEVEL 139 MEQ/L (136-145); TOTAL PROTEIN 7.4 GM/DL (6.4-8.2)
== END ==
LOC: M SFHCCLAY 14:31
PROVIDERS: ATTEND Nurse Practitioner Family
DX: N81.10 Cystocele, unspecified (principal)

== ENCOUNTER → 2021-03-30 | Outpatient (CLI) | payer BC, OTHER ==
--- NOTE | 2021-03-30 15:38 | REP ---
INDICATION: MILD INTERMITTENT ASTHMA. COMPARISON: 07/14/2019 the latest prior TECHNIQUE: PA and lateral FINDINGS: There are chronic left basilar opacities. Lung morales are otherwise clear and stable. The pleural angles are sharp. The heart is not enlarged. The osseous structures stable intact. IMPRESSION: There is no acute cardiopulmonary disease. <Electronically signed by Jerry Owusu > 03/30/21 [id number]
== END ==
LOC: M CLY 14:45
PROVIDERS: ATTEND Nurse Practitioner Family
DX: J45.20 Mild intermittent asthma, uncomplicated (principal); R91.8 Other nonspecific abnormal finding of lung field

== ENCOUNTER 2021-03-31 09:31 | Day surgery (SDC) | payer BC, OTHER ==
[~2021-03-31] VITALS: Ht 165.1 cm; Wt 86.2 kg
[~2021-03-31 09:31] MED LIST changes: +NS 1,000 ML IV ONE
[2021-03-31] MEDS ORDERED: propofoL 200 MG/20 ML VIAL As Ordered ONE ×2 (09:38→11:49)
[2021-03-31] MEDS ORDERED: LIDOCAINE 2% 100MG/5ML SDV (FOR ANES.) As Ordered ONE (09:38)
[2021-03-31] MEDS ORDERED: fentaNYL 100 MCG/2 ML INJECTION (J3010) As Ordered ONE (09:38)
--- NOTE | 2021-03-31 12:27 | ROOR ---
Patient Name: Julita Nunez Procedure Date: 03/31/2021 11:25 AM Date of : 1960 Age: 60 Gender: Female Note Status: Finalized Procedure: Colonoscopy Indications: Screening for colorectal malignant neoplasm Providers: Edi Gasca MD Referring MD: Pauline Whitten NP Requesting Provider: Medicines: Monitored Anesthesia Care Complications: No immediate complications. Procedure: Pre-Anesthesia Assessment: - Prior to the procedure, a History and Physical was performed, and patient medications and allergies were reviewed. The patient is competent. The risks and benefits of the procedure and the sedation options and risks were discussed with the patient. All questions were answered and informed consent was obtained. Patient identification and proposed procedure were verified by the physician, the nurse and the anesthesiologist in the procedure room. Mental Status Examination: alert and oriented. Airway Examination: normal oropharyngeal airway and neck mobility. Respiratory Examination: clear to auscultation. Prophylactic Antibiotics: The patient does not require prophylactic antibiotics. Prior Anticoagulants: The patient has taken no previous anticoagulant or antiplatelet agents. ASA Grade Assessment: II - A patient with mild systemic disease. After reviewing the risks and benefits, the patient was deemed in satisfactory condition to undergo the procedure. The anesthesia plan was to use monitored anesthesia care (MAC). Immediately prior to administration of medications, the patient was re-assessed for adequacy to receive sedatives. The heart rate, respiratory rate, oxygen saturations, blood pressure, adequacy of pulmonary ventilation, and response to care were monitored throughout the procedure. The physical status of the patient was re-assessed after the procedure. The Colonoscope was introduced through the anus and advanced to the terminal ileum, with identification of the appendiceal orifice and IC valve. The colonoscopy was performed without difficulty. The patient tolerated the procedure well. The quality of the bowel preparation was good. The terminal ileum, ileocecal valve, appendiceal orifice, and rectum were photographed. Scope insertion time was 2 minutes. Scope withdrawal time was 8 minutes. The total duration of the procedure was 12 minutes. Findings: The perianal and digital rectal examinations were normal. The terminal ileum appeared normal. Five sessile polyps were found in the recto-sigmoid colon, transverse colon and ascending colon. The polyps were 4 to 8 mm in size. These polyps were removed with a cold snare. Resection and retrieval were complete. Verification of patient identification for the specimen was done by the physician and nurse using the patient's name, date and medical record number. Estimated blood loss was minimal. Multiple small and large-mouthed diverticula were found from sigmoid to transverse colon. There was no evidence of diverticular bleeding. Non-bleeding external and internal hemorrhoids were found during retroflexion. The hemorrhoids were medium-sized. Impression: - The examined portion of the ileum was normal. - Five 4 to 8 mm polyps at the recto-sigmoid colon, in the transverse colon and in the ascending colon, removed with a cold snare. Resected and retrieved. - Moderate diverticulosis from sigmoid to transverse colon. There was no evidence of diverticular bleeding. - Non-bleeding external and internal hemorrhoids. Recommendation: - Patient has a contact number available for emergencies. The signs and symptoms of potential delayed complications were discussed with the patient. Return to normal activities tomorrow. Written discharge instructions were provided to the patient. - High fiber diet. - Continue present medications. - Use fiber, for example Citrucel, Fibercon, Konsyl or Metamucil. - Await pathology results. - Repeat colonoscopy in 5 years for surveillance based on pathology results. - Telephone GI clinic for pathology results in 2 weeks. - Return to primary care physician. Procedure Code(s): --- Professional --- 67020, Colonoscopy, flexible; with removal of tumor(s), polyp(s), or other lesion(s) by snare technique Diagnosis Code(s): --- Professional --- Z12.11, Encounter for screening for malignant neoplasm of colon K64.8, Other hemorrhoids K63.5, Polyp of colon K57.30, Diverticulosis of large intestine without perforation or abscess without bleeding CPT copyright 2019 [employer]. All rights reserved. The codes documented in this report are preliminary and upon certified medical coder review may be revised to meet current compliance requirements. Attending Participation: I personally performed the entire procedure. Edi Gasca MD Edi Gasca MD 03/31/2021 12:26:29 PM Electronically signed by Edi Gasca MD Number of Addenda: 0 Note Initiated On: 03/31/2021 11:25 AM Estimated Blood Loss: Estimated blood loss was minimal.
--- NOTE | 2021-03-31 12:36 | ROOR ---
Patient Name: Julita Nunez Procedure Date: 03/31/2021 11:23 AM Date of : 1960 Age: 60 Room: [facility] Gender: Female Note Status: Finalized Procedure: Upper GI endoscopy Indications: Heartburn, Suspected reflux esophagitis Providers: Edi Gasca MD Referring MD: Pauline Whitten NP Requesting Provider: Medicines: Monitored Anesthesia Care Complications: No immediate complications. Procedure: Pre-Anesthesia Assessment: - Prior to the procedure, a History and Physical was performed, and patient medications and allergies were reviewed. The patient is competent. The risks and benefits of the procedure and the sedation options and risks were discussed with the patient. All questions were answered and informed consent was obtained. Patient identification and proposed procedure were verified by the physician, the nurse and the anesthesiologist in the procedure room. Mental Status Examination: alert and oriented. Airway Examination: normal oropharyngeal airway and neck mobility. Respiratory Examination: clear to auscultation. CV Examination: normal. Prophylactic Antibiotics: The patient does not require prophylactic antibiotics. Prior Anticoagulants: The patient has taken no previous anticoagulant or antiplatelet agents. ASA Grade Assessment: II - A patient with mild systemic disease. After reviewing the risks and benefits, the patient was deemed in satisfactory condition to undergo the procedure. The anesthesia plan was to use monitored anesthesia care (MAC). Immediately prior to administration of medications, the patient was re-assessed for adequacy to receive sedatives. The heart rate, respiratory rate, oxygen saturations, blood pressure, adequacy of pulmonary ventilation, and response to care were monitored throughout the procedure. The physical status of the patient was re-assessed after the procedure. The Endoscope was introduced through the mouth, and advanced to the second part of duodenum. The upper GI endoscopy was accomplished without difficulty. The patient tolerated the procedure well. Findings: One tongue of salmon-colored mucosa was present from 34 to 36 cm. No other visible abnormalities were present. The maximum longitudinal extent of these esophageal mucosal changes was 2 cm in length. Biopsies were taken with a cold forceps for histology. Verification of patient identification for the specimen was done by the physician and nurse using the patient's name, date and medical record number. Estimated blood loss was minimal. Evidence of a Kait fundoplication was found in the cardia. The wrap appeared intact. This was traversed. Scattered moderate inflammation characterized by erythema, friability and granularity was found in the gastric antrum. Biopsies were taken with a cold forceps for Helicobacter pylori testing. The duodenal bulb, second portion of the duodenum and third portion of the duodenum were normal. Impression: - Alma-colored mucosa suspicious for short-segment Beltre's esophagus. Biopsied. - A Kait fundoplication was found. The wrap appears intact. - Gastritis. Biopsied. - Normal duodenal bulb, second portion of the duodenum and third portion of the duodenum. Recommendation: - Patient has a contact number available for emergencies. The signs and symptoms of potential delayed complications were discussed with the patient. Return to normal activities tomorrow. Written discharge instructions were provided to the patient. - High fiber diet. - Continue present medications. - Follow an antireflux regimen. - Await pathology results. - Telephone GI clinic for pathology results in 2 weeks. - Return to GI clinic if persistent symptoms or new symptoms. - Return to primary care physician. Procedure Code(s): --- Professional --- 36737, Esophagogastroduodenoscopy, flexible, transoral; with biopsy, single or multiple Diagnosis Code(s): --- Professional --- K22.8, Other specified diseases of esophagus Z98.890, Other specified postprocedural states K29.70, Gastritis, unspecified, without bleeding R12, Heartburn CPT copyright 2019 [employer]. All rights reserved. The codes documented in this report are preliminary and upon developmental behavioral physician review may be revised to meet current compliance requirements. Edi Gasca MD Edi Gasca MD 03/31/2021 12:35:51 PM Electronically signed by Edi Gasca MD Number of Addenda: 0 Note Initiated On: 03/31/2021 11:23 AM Estimated Blood Loss: Estimated blood loss was minimal.
[2021-03-31 12:47] VITALS: BP 122/79
== END 2021-03-31 12:49 | disposition home or self-care (01) ==
LOC: M OPP 09:31
PROVIDERS: ATTEND Internal Medicine Gastroenterology
DX: D12.6 Benign neoplasm of colon, unspecified (principal); K64.8 Other hemorrhoids; K57.30 Diverticulosis of large intestine without perforation or abscess without bleeding; K21.9 Gastro-esophageal reflux disease without esophagitis; J44.9 Chronic obstructive pulmonary disease, unspecified; I10 Essential (primary) hypertension; Z79.899 Other long term (current) drug therapy; Z88.8 Allergy status to other drugs, medicaments and biological substances; Z12.11 Encounter for screening for malignant neoplasm of colon
CPT/HCPCS: 43239; 45385; 88305; J3010

== ENCOUNTER → 2021-04-05 | Outpatient (CLI) | payer BC, OTHER ==
[~2021-04-05] MED LIST changes: -NS 1,000 ML IV ONE
== END ==
LOC: M LABSMTC 10:17
PROVIDERS: ATTEND Anesthesiology
DX: Z01.812 Encounter for preprocedural laboratory examination (principal); Z20.822 Contact with and (suspected) exposure to COVID-19

== ENCOUNTER → 2021-04-19 | Outpatient (REF) | payer OTHER ==
[2021-04-19 16:22] LABS: APPEARANCE, URINE HAZY (CLEAR); BACTERIA, URINE AUTO NEGATIVE (NEGATIVE); BILIRUBIN, URINE AUTO NEGATIVE (NEGATIVE); BLOOD, URINE BLOOD 1+ (NEGATIVE); COLOR, URINE YELLOW (YELLOW); GLUCOSE, URINE (UA) AUTO NEGATIVE (NEGATIVE); KETONE, URINE AUTO NEGATIVE (NEGATIVE); LEUKOCYTE ESTERASE, URINE AUTO NEGATIVE (NEGATIVE); NITRITE, URINE AUTO NEGATIVE (NEGATIVE); PROTEIN, URINE AUTO NEGATIVE (NEGATIVE); RBC, URINE AUTO 0 /HPF (0-3); SPECIFIC GRAVITY URINE AUTO 1.008 (1.002-1.035); SQUAMOUS EPITHELIAL CELL UR AU 9 /HPF (0-6); UROBILINOGEN, URINE AUTO 0.2 mg/dL (0.0-2.0); WBC, URINE AUTO 1 /HPF (0-3)
== END ==
LOC: M SFHCCLAY 09:41
PROVIDERS: ATTEND Nurse Practitioner Family
DX: N81.10 Cystocele, unspecified (principal)

== ENCOUNTER → 2021-04-22 | Outpatient (CLI) | payer BC, OTHER | LOC: M LABSMTC 10:20 | PROVIDERS: ATTEND Anesthesiology | DX: Z11.52 Encounter for screening for COVID-19 (principal); Z20.822 Contact with and (suspected) exposure to COVID-19 ==

== ENCOUNTER 2021-04-27 06:47 | Day surgery (SDC) | payer BC, OTHER ==
[~2021-04-27] VITALS: Ht 165.1 cm; Wt 87.5 kg
[~2021-04-27 06:47] MED LIST changes: +LR 1,000 ML IV ONE; +ceFAZolin SOD 2 GM in IV 1 EA IV ONE
--- OUTSIDE RECORDS SUMMARY | 2021-04-27 06:52 | CCD | Continuity of Care Document ---
Author Author Julita TAVAREZ MD Organization Unknown Address [address] [place] [id number] Phone [phone] Care Team Providers Care Key Account Executive Name Role Phone Marizol Vargas MD AUTM [phone] Carol Whitten NP AUTM [phone] Problems Active Problems Provider Date Hypertensive disorder Maria Dolores Tavarez MD Onset: 09/15/2018 Social History Type Date Description Comments Sex Unknown Tobacco Use Start: Unknown End: Unknown Quit ETOH Use Non-smoker, Occasional Drinker, Non-drug User Tobacco Use Start: Unknown End: Unknown Patient is a former smoker Smoking Status Reviewed: 03/22/21 Patient is a former smoker Exercise Type/Frequency Exercises regularly Allergies and adverse reactions Active Allergies Criticality Reaction | Severity Comments Date Liu Inhibitors Unable to assess criticality 06/17/2020 Medications Active Medications SIG Qnty Indications Ordering Provide r Date Fluconazole 150mg Tablets 1 by mouth now and one tomorrow 2tabs B37.3 Maria Dolores Tavarez MD 11/14/2020 Ibuprofen 600mg Tablets Take One Tablet By Mouth Every 6 Hours as Needed For Pain 60tabs Maria Dolores Tavarez MD 02/03/[address] 1 Ring Vaginally Every 3 Months 1units N94.12 Maria Dolores Tavarez MD 10/20/2019 Levothyroxine Sodium 50mcg Tablets Unknown Singulair 10mg Tablets Unknown Atenolol 50mg Tablets Unknown Amlodipine Besylate 10mg Tablets Unknown Protonix 40mg Tablets DR 1 by mouth twice a day Unknown Dicyclomine HCL 20mg Tablets Unknown Advair Diskus 500-50mcg/Dose Aerosol Unknown Proventil HFA 108(90Base) mcg/Act Aerosol Unknown Spiriva Handihaler 18mcg Capsules Unknown Immunizations Description No Information Available Vital Signs Date Vital Result Comment 03/22/2021 12:12pm BP Systolic 120 mmHg BP Diastolic 82 mmHg Height 62.5 inches 5'2.50" Weight 194.00 lb BMI (Body Mass Index) 34.9 kg/m2 BSA (Body Surface Area) 1.90 m2 08/31/2019 8:55am BP Systolic 144 mmHg BP Diastolic 86 mmHg Results Description No Information Available Procedures Date Code Description Status 03/22/2021 45659 Preventive Visit Est 40-64 Yrs C ompleted 12/14/2020 97227 Office/Outpatient Established SF MDM 10-19 Min Completed 12/12/2020 20701 Office/Outpatient Established Lo w MDM 20-29 Min Completed 12/12/2020 70338 Pessary Fitting & In sertion Of Pessary/Intravaginal Support Lia Completed 11/14/2020 44099 Office/Outpatient Established Lo w MDM 20-29 Min Completed 01/22/2020 [id number] Mammogram Completed Medical Devices Description No Information Available Encounters Type Date Location Provider Dx Diagnosis Office Visit 03/22/2021 12:00p [facility] [employer] Maria Dolores Tavarez MD Z0 1.419 Encntr for medicare coordinator exam (general) (routine) w/o abn findings Z12.4 Encounter for screening for malignant neoplasm of cervix Z12.39 Encounter for oth screening for malignant neoplasm of breast N95.2 Postmenopausal atrophic vagi nitis N81.11 Cystocele, midline Office Visit 12/14/2020 8:30a [facility] [employer] Maria Dolores Tavarez MD N9 5.2 Postmenopausal atrophic vaginitis R10.2 Pelvic and perineal pain N81.11 Cystocele, midline Office Visit 12/12/2020 11:00a [facility] [employer] Maria Dolores Tavarez MD N9 5.2 Postmenopausal atrophic vaginitis R10.2 Pelvic and perineal pain N81.11 Cystocele, midline Office Visit 11/14/2020 2:00p [facility] [employer] Maria Dolores Tavarez MD B3 7.3 Candidiasis of vulva and vagina Assessments Date Code Description Provider 03/22/2021 Z01.419 Encounter for gyneco logical examination (general) (routine) without abnormal findings Maria Dolores Tavarez MD 03/22/2021 Z12.4 Encounter for screening for carol gnant neoplasm of cervix Maria Dolores Tavarez MD 03/22/2021 Z12.39 Encounter for other screening for malignant neoplasm of breast Maria Dolores Tavarez MD 03/22/2021 N95.2 Postmenopausal atrophic vaginiti s Maria Dolores Tavarez MD 03/22/2021 N81.11 Cystocele, midline Catalina Tavarez i, MD 12/14/2020 N95.2 Postmenopausal atrophic vaginiti s Maria Dolores Tavarez MD 12/14/2020 R10.2 Pelvic and perineal pain Maria Dolores Tavarez MD 12/14/2020 N81.11 Cystocele, midline Catalina Tavarez i, MD 12/12/2020 N95.2 Postmenopausal atrophic vaginiti s Maria Dolores Tavarez MD 12/12/2020 R10.2 Pelvic and perineal pain Maria Dolores Tavarez MD 12/12/2020 N81.11 Cystocele, midline Catalina Tavarez i, MD 11/14/2020 B37.3 Candidiasis of vulva and vagina Maria Dolores Tavarez MD Plan of Treatment Future Appointment(s):* 03/27/2022 10:30 am - Maria Dolores Tavarez MD at [facility] [employer] 03/22/2021 - Maria Dolores Tavarez MD* Z01.419 Encounter for gynecological examination (general) (routine) without abnormal findings * Z12.4 Encounter for screening for malignant neoplasm of cervix* New Labs:* Thinprep W/Reflex HR HPV If Asc-US, Ordered: 03/22/21 * Z12.39 Encounter for other screening for malignant neoplasm of breast* New Xrays:* Mammography, Screening, Bilateral, Ordered: 03/22/21 * N95.2 Postmenopausal atrophic vaginitis * N81.11 Cystocele, midline Functional Status Description No Information Available Mental Status Description No Information Available Referrals Description No Information Available
--- OUTSIDE RECORDS SUMMARY | 2021-04-27 06:52 | CCD ---
Author Author [facility] Organization [facility] Address Unknown Phone Unavailable Care Team Providers Care Training Personnel Supervisor Name Role Phone Pauline Whitten Unavailable PROBLEMS Type Condition ICD9-CM Code VIS22-BR Code Onset Dates Condition S tatus W/U Status Risk SNOMED Code Notes Problem Diverticulitis of colon (without mention of hemorrhage) K57.32 Active confirmed 561666664 Problem Symptomatic menopausal or female climacteric states N95.1 Active confirmed 42625538 Problem Cystocele, midline N81.11 Active confirmed 4 31372627 Problem Allergic rhinitis, unspecified allergic rhinitis type J30.9 Active confirmed 18833701 Problem Essential hypertension I10 Active confirmed 01962473 Problem Female cystocele N81.10 Active confirmed 252 418091 Problem Pelvic organ prolapse quantification stage 3 cystocele N81.10 Active confirmed 847064480 Problem Elbow tendonitis M77.8 Active confirmed 331 993921909 Problem Hypothyroidism, unspecified type E03.9 Active conf irmed 82529416 Problem Tinnitus, unspecified laterality H93.19 Active conf irmed 45403413 Problem Sinusitis, unspecified chronicity, unspecified location J32.9 Active confirmed 63631252 Problem Surgical menopause, symptomatic E89.41 Active confi rmed 523574586 Problem Irritable bowel syndrome with constipation K58.1 Active confirmed 670636697 Problem Epidermal cyst of vulva N90.7 Active confirmed 06692345 Problem Excessive and frequent menstruation N92.0 Acti ve confirmed 098411555 Problem Asthma with acute exacerbati on, unspecified asthma severity, unspecified whether persistent J45.901 Active confirmed 322977841 Problem Leukocytosis, unspecified D72.829 Active confirmed 857406554 Problem Renal mass N28.89 Active confirmed 895333271 Problem Vaginal prolapse N81.10 Active confirmed 398 405464 Problem Gastroesophageal reflux disease without esophagitis K21.9 Active confirmed 714200789 Problem Cystocele, unspecified N81.10 Active confirmed 311359266 Problem Mild intermittent asthma without complication J45. 20 Active confirmed 148307653 Problem Mixed hyperlipidemia E78.2 Active confirmed 678716883 Problem Bladder calculus N21.0 Active confirmed 706 47229 Problem Cystocele with incomplete uterovaginal prolapse N8 1.2 Active confirmed 589248250 Problem Unspecified urinary incontinence R32 Active conf irmed 620963935 Problem Incontinence in female R32 Active confirmed 59859310 ALLERGIES Allergen (clinical drug ingredient) Drug/Non Drug Allergy do cumented on EMR Reaction Allergy Type Onset Date Status moxifloxacin Avelox Nausea/Vomiting Drug Allergy Activ e azithromycin Zithromax([facility] Code:[address]-17) Diarrhea Drug Allerg y Active lisinopril Lisinopril([facility] Code:[address]-84) Angioedema Drug Allergy Active losartan Losartan Potassium([facility] Code:[address]-61) CHRIS i nduced angioedema Drug Allergy Active ENCOUNTERS from 1962 to 2021-04-08 Encounter Location Date Provider Diagnosis [facility] [address] [place] [address] [place] [address] 04 Mar, 2021 Pauline Whitten Cystocele, unspecified N81.10 ; Encounte r for pre-operative examination Z01.818 ; Mild intermittent asthma without complication J45.20 ; Mixed hyperlipidemia E78.2 ; Essential hypertension I10 ; Irritable bowel syndrome with constipation K58.1 ; Hypothyroidism, unspecified type E03.9 and Gastroesophageal reflux disease without esophagitis K21.9 IMMUNIZATIONS Vaccine Route Administration Date Status Influenza 6mo & up Fluzone Unknown Jun 13, 2017 Refus ed Influenza 6mo & up Fluzone Unknown May 02, 2016 Refus ed SOCIAL HISTORY Tobacco Use: Social History Observation Description Date Details (start date - stop date) Former Smoker Sex Assigned At : Social History Observation Description Sex Assigned At Unknown Education: Question Answer Notes Level of Education: Professional Schools/Masters/PhD Audit Question Answer Notes Total Score: 1 Interpretation: Alcohol Education Language: Question Answer Notes Languages spoken: Kinyarwanda Hoahaoism: Question Answer Notes Hoahaoism 21 Faith Sexual Hx: Question Answer Notes Had sex in the last 12 months (vaginal, oral, or anal)? Yes Have you ever had an STD? No Prevention Strategies discussed: Other with Men only Use protection? No Drug and Alcohol Question Answer Notes Total Score: 0 Interpretation: No problems reported BMI Care Goal Follow-Up Question Answer Notes Above Normal BMI Follow-Up Dietary management educatio n, guidance, and counseling Tobacco Use: Question Answer Notes Are you a: former smoker quit 2000/04/2020 How long has it been since you last smoked? > 10 years REASON FOR REFERRAL No Information VITAL SIGNS Weight 193 lbs Mar, Weight-kg 87.54 kg Mar, Height 64 in Mar, BMI 33.12 kg/m2 Mar, Heart Rate 82 /min Mar, Respiratory Rate 20 /min Mar, Temperature 97.1 degrees Fahrenheit Mar, Oximetry 100 Mar, Blood pressure systolic 118 mm Hg Mar, Blood pressure diastolic 82 mm Hg Mar, MEDICATIONS Medication SIG (Take, Route, Frequency, Duration) Notes Start Da te End Date Status Levothyroxine Sodium 25 MCG 1 tab orally Daily Active guaiFENesin-Codeine 200-10 MG/5ML 10 ml as needed Oral ly every 6 hrs for 5 day(s) Feb, Not-Taking Cyclobenzaprine HCl 10 MG 1 tablet at bedtime as neede d Orally Once a day for 10 day(s) Nov, Not-Taking Librax 5-2.5 MG 1 capsule before meals or at hs Orally four times daily as needed for intestinal spasms Act adonis Diphenoxylate-Atropine 2.5-0.025 MG 1 tablet as needed Orally Four times a day for 30 days Active predniSONE 10 MG 3 tablets Orally Once a day for 5 day(s) Nov, Not-Taking Atenolol 25 mg 1 tablet orally Once a day Active Amoxicillin-Pot Clavulanate 875-125 MG 1 tablet Orally every 12 hrs for 10 day(s) Feb, Not-Taking Dicyclomine HCl 10 MG 1 capsules Orally Four times a day Active guaiFENesin-Codeine 100-10 MG/5ML 10 ml as needed Oral ly every 4 hrs for 5 day(s) Feb, Not-Taking Diflucan 150 MG 1 tablet Orally qday, repeat one in 3 days for 2 days Nov, Not-Taking Spiriva Respimat 2.5 MCG/ACT 2 puffs Inhalation Once a day Active Nystatin 047269 UNIT/GM as directed Externally under breast Dailyprn for 30 Days September, Active Flonase 50 MCG/DOSE 1 spray in each nostril Nasally Once a day as nee ded Active Sulfamethoxazole-Trimethoprim 800-160 MG 1 tablet 1 ho ur prior to your cystoscopy Orally Once for 1 days Oct, Not-Taking Nitrofurantoin Macrocrystal 100 MG 1 capsule with food or milk Orally twice daily for 5 day(s) Jul, Not-Taking Bactrim DS 800-160 MG 1 tablet Orally Twice a day for 10 day(s) Nov, Not-Taking Singulair 10 mg 1 tablet in the evening Orally Once a day Active Albuterol Sulfate HFA 108 (90 Base) MCG/ACT 1 puff as needed Inhalation every 4 hrs Active Diflucan 150 MG 1 tablet Orally Daily for 7 day(s) Oct, Not-Taking Ampicillin 500 MG 1 capsule 1 hour before or 2 hours after a meal Orally every 6 hrs for 14 days Oct, Not-Taking Qvar Active Pantoprazole Sodium 40 MG TAKE ONE TABLET BY MOUTH TWICE A DAY Active Advair Diskus 500-50 MCG/DOSE 1 puff Inhalation Twice a day-CHRIS Active Cipro 500 MG 1 tablet Orally every 12 hrs for 10 prn Active Bacid - as directed Orally bid September, Active Albuterol Sulfate HFA 108 (90 Base) MCG/ACT 1-2 puffs Inhalation q4hp sob/wheeze Jul, Not-Taking Amlodipine Besylate 5 MG TAKE ONE TABLET BY MOUTH EVERY DAY Active Xiidra 2gtts Ophthalmic Twice a day Active Pyridium 200 MG 1 tablet after meals Orally Three times a day, prn for 10 days Oct, Not-Taking Levothroid 25 MCG 1 tablet every morning on an empty stoma ch Orally Once a day Not-Taking metroNIDAZOLE 500 MG 1 tablet Orally every 8 hrs/prn for 10 day(s) prn for diverticulitis Active PROCEDURES No Information RESULTS Component Value Reference Range XRAY CHEST 2 VIEW CLY.CXR2 CLY Reviewed date:03/30/2021 16:18:20 Interpretation: Performing Lab:[facility] [address] ,[place] [address] Electrocardiogram (EKG) Reviewed date:03/31/2021 10:16:55 Interpretation: Performing Lab:[facility] [place] [address] CBC with Differential Reviewed date:04/03/2021 07:26:24 Interpretation:Normal Performing Lab:[facility] [id number] , ,[place] [address] WHITE BLOOD COUNT 8.6 4.0-10.0 RED BLOOD COUNT 4.89 4.00-5.40 HEMOGLOBIN 14.2 12.0-15.5 HEMATOCRIT 45.0 36.0-47.0 MEAN CORPUSCULAR VOLUME 92.0 80.0-96.0 MEAN CORPUSCULAR HEMOGLOBIN 29.0 27.0-33.0 MEAN CORPUSCULAR HGB CONC 31.6 32.0-36.5 RED CELL DISTRIBUTION WIDTH 13.0 11.5-14.5 PLATELET COUNT, AUTOMATED 526 150-450 NEUTROPHILS % 66.4 36.0-66.0 LYMPH % 22.6 24.0-44.0 MONO % 8.6 2.0-8.0 EOS % 1.0 0.0-3.0 BASO % 0.9 0.0-1.0 NEUTROPHILS # 5.7 1.5-8.5 LYMPH # 2.0 1.5-5.0 MONO # 0.7 0.0-0.8 EOS # 0.1 0.0-0.5 BASO # 0.1 0.0-0.2 Comprehensive Metabolic Profile (CMP) Reviewed date:04/03/2021 07:26:24 Interpretation:Normal Performing Lab:[facility] [address] [address] , ,[place] [address] GLUCOSE, FASTING 90 70-100 BLOOD UREA NITROGEN 14 7-18 CREATININE FOR GFR 0.87 0.55-1.30 GLOMERULAR FILTRATION RATE > 60.0 >51 SODIUM LEVEL 139 136-145 POTASSIUM SERUM 4.6 3.5-5.1 CHLORIDE LEVEL 105 98-107 CARBON DIOXIDE LEVEL 25 21-32 CALCIUM LEVEL 9.9 8.5-10.1 AST/SGOT 19 7-37 ALT/SGPT 29 12-78 ALKALINE PHOSPHATASE 94 45-117 BILIRUBIN,TOTAL 0.6 0.2-1.0 TOTAL PROTEIN 7.4 6.4-8.2 ALBUMIN 3.9 3.2-5.2 ALBUMIN/GLOBULIN RATIO 1.1 1.2-2.2 UA URINALYSIS Reviewed date:04/03/2021 07:26:38 Interpretation: Performing Lab:[facility] [address] [address] , ,[facility] URINE CULTURE Reviewed date:04/03/2021 07:26:31 Interpretation: Performing Lab:[facility] [id number] , ,[facility] REASON FOR VISIT pre op urology testing/labs/xray done prior, we need to do ekg MEDICAL (GENERAL) HISTORY Type Description Date Medical History Asthma Medical History Chronic sinusitis Medical History Hiatal hernia Medical History GERD Medical History Hypertension Medical History Hypothyroidism Medical History Seasonal allergies Medical History Hx of diverticulitis Medical History Hx of colitis Medical History Hyperlipidemia Medical History dry eye syndrome: Dr. Cisneros Surgical History Gall bladder removal 1999 Surgical History Rt hand ganglion cyst 2001 Surgical History Colonoscopy, EGD- Dr. Hogan/Griffin: repeat due 03/2012,08/2015 Surgical History EGD/pH monitor placement 12/2017 Surgical History Hiatal hernia repair/fundoplication- Dr Flro 02/2018 Surgical History Partial hysterectomy/WITH BLADDER LIFT Amanda Etienne 11/20/2018 Surgical History cystoscopy 12/01/2019 Surgical History Hysterectomy w/bladder lift repair 0 Surgical History removal and repair of bladder suspension mesh 01/2020 Hospitalization History over night with surgery Goals Section No Information Health Concerns No Information MEDICAL EQUIPMENT No Information MENTAL STATUS No Information FUNCTIONAL STATUS No Information ASSESSMENTS Encounter Date Diagnosis Assessment Notes Treatment Notes Treatm ent Clinical Notes Mar, Cystocele, unspecified (ICD-10 - N81.10) Mar, Encounter for pre-operative examination (ICD-10 - Z01.818) Patient is currently medically optimized and cleared to proceed with above-noted procedure Mar, Mild intermittent asthma without complication (I CD-10 - J45.20) Stable well-controlled Mar, Mixed hyperlipidemia (ICD-10 - E78.2) Mar, Essential hypertension (ICD-10 - I10) EKMar, Irritable bowel syndrome with constipation (ICD- 10 - K58.1) Mar, Hypothyroidism, unspecified type (ICD-10 - E03.9 ) Mar, Gastroesophageal reflux dise ase without esophagitis (ICD-10 - K21.9) PLAN OF TREATMENT Medication Medication Name Sig Start Date Stop Date Singulair 10 mg 1 tablet in the evening Orally Once a day Amlodipine Besylate 5 MG TAKE ONE TABLET BY MOUTH EVERY DAY Librax 5-2.5 MG 1 capsule before meals or at hs Orally four times daily as needed for intestinal spasms Advair Diskus 500-50 MCG/DOSE 1 puff Inhalation Twice a day-CHRIS Bacid - as directed Orally bid September, Pantoprazole Sodium 40 MG TAKE ONE TABLET BY MOUTH TWICE A DAY Albuterol Sulfate HFA 108 (90 Base) MCG/ACT 1 puff as needed Inhalation every 4 hrs Dicyclomine HCl 10 MG 1 capsules Orally Four times a day Levothyroxine Sodium 25 MCG 1 tab orally Daily Spiriva Respimat 2.5 MCG/ACT 2 puffs Inhalation Once a day Atenolol 25 mg 1 tablet orally Once a day Treatment Notes Assessment Notes Clinical Notes Encounter for pre-operative examination Patient is currently medically optimized and cleared to proceed with above-noted procedure Mild intermittent asthma without complication Stable well-controlled Essential hypertension EKG: Next Appt Details prn/as scheduled Reason: Provider Name:Beto Nelson, 11:15:00 AM, [address], , [place], [address], Provider Name:Pauline Whitten, 2020-05 01:15:00 PM, [address], , [place], [address], Insurance Providers Payer Name Payer Address Payer Phone Insured Name Patient Relati onship to Insured Coverage Start Date Coverage End Date [facility] [address] [facility] [id number] [phone] MARIAELENA GOODMAN self
--- OUTSIDE RECORDS SUMMARY | 2021-04-27 06:52 | CCD ---
Author Author [facility] Organization [facility] [employer] [facility] Address Unknown Phone Unavailable Care Team Providers Care Prototype Engineer Manager Name Role Phone Pauline Whitten Unavailable PROBLEMS ALLERGIES ENCOUNTERS from 1960 to 2021-04-11 IMMUNIZATIONS SOCIAL HISTORY REASON FOR REFERRAL No Information VITAL SIGNS MEDICATIONS PROCEDURES No Information RESULTS No Results REASON FOR VISIT MEDICAL (GENERAL) HISTORY Goals Section Health Concerns MEDICAL EQUIPMENT No Information MENTAL STATUS FUNCTIONAL STATUS ASSESSMENTS No Information PLAN OF TREATMENT Insurance Providers
--- OUTSIDE RECORDS SUMMARY | 2021-04-27 06:52 | CCD ---
Author Author [facility] Organization [facility] Address Unknown Phone Unavailable Care Team Providers Care [employer] Principal Name Role Phone Pauline Whitten Unavailable PROBLEMS Type Condition ICD9-CM Code [id number] Code Onset Dates Condition S tatus W/U Status Risk SNOMED Code Notes Problem Symptomatic menopausal or female climacteric states N95.1 Active confirmed 60615352 Problem Diverticulitis of colon (without mention of hemorrhage) K57.32 Active confirmed 609180155 Problem Mixed hyperlipidemia E78.2 Active confirmed 378013078 Problem Cystocele, midline N81.11 Active confirmed 4 95187194 Problem Pelvic organ prolapse quantification stage 3 cystocele N81.10 Active confirmed 226725462 Problem Epidermal cyst of vulva N90.7 Active confirmed 99283174 Problem Hypothyroidism, unspecified type E03.9 Active conf irmed 82268094 Problem Gastroesophageal reflux disease without esophagitis K21.9 Active confirmed 712817339 Problem Sinusitis, unspecified chronicity, unspecified location J32.9 Active confirmed 16006560 Problem Elbow tendonitis M77.8 Active confirmed 331 091662335 Problem Irritable bowel syndrome with constipation K58.1 Active confirmed 970260114 Problem Tinnitus, unspecified laterality H93.19 Active conf irmed 72793325 Problem Excessive and frequent menstruation N92.0 Acti ve confirmed 163960992 Problem Surgical menopause, symptomatic E89.41 Active confi rmed 007201472 Problem Female cystocele N81.10 Active confirmed 252 930371 Problem Asthma with acute exacerbati on, unspecified asthma severity, unspecified whether persistent J45.901 Active confirmed 443861240 Problem Leukocytosis, unspecified D72.829 Active confirmed 480035083 Problem Unspecified urinary incontinence R32 Active conf irmed 546977235 Problem Allergic rhinitis, unspecified allergic rhinitis type J30.9 Active confirmed 04969981 Problem Vaginal prolapse N81.10 Active confirmed 398 529216 Problem Essential hypertension I10 Active confirmed 48061859 Problem Mild intermittent asthma without complication J45. 20 Active confirmed 454350569 Problem Renal mass N28.89 Active confirmed 368066595 Problem Bladder calculus N21.0 Active confirmed 706 34901 Problem Cystocele with incomplete uterovaginal prolapse N8 1.2 Active confirmed 545382990 Problem Incontinence in female R32 Active confirmed 87982474 ALLERGIES Allergen (clinical drug ingredient) Drug/Non Drug Allergy do cumented on EMR Reaction Allergy Type Onset Date Status moxifloxacin Avelox Nausea/Vomiting Drug Allergy Activ e azithromycin Zithromax([facility] Code:[address]-87) Diarrhea Drug Allerg y Active lisinopril Lisinopril([facility] Code:[address]-18) Angioedema Drug Allergy Active losartan Losartan Potassium([facility] Code:[address]-24) CHRIS i nduced angioedema Drug Allergy Active ENCOUNTERS from 1960 to 2021-03-14 Encounter Location Date Provider Diagnosis [address] [place] [phone] [place] [address] Feb, Pauline Whitten IMMUNIZATIONS Vaccine Route Administration Date Status Influenza [...] Education Language: Question Answer Notes Languages spoken: Upper Sorbian Episcopal: Question Answer Notes Episcopal 21 Adventist Sexual Hx: Question Answer Notes Had sex [...] Notes Are you a: former smoker quit 2000/updated 04/2020 How long has it been since you last smoked? > 10 years REASON FOR REFERRAL No Information VITAL SIGNS No information MEDICATIONS Medication SIG (Take, Route, Frequency, Duration) Notes Start Da te End Date Status Dicyclomine HCl 10 MG 1 capsules Orally Four times a day for 30 Active guaiFENesin-Codeine 200-10 MG/5ML 10 ml as needed Oral ly every 6 hrs for 5 day(s) Feb, Active Atenolol 25 mg 1 tablet orally Once a day Active Nitrofurantoin Macrocrystal 100 MG 1 capsule with food or milk Orally twice daily for 5 day(s) Jul, Not-Taking Sulfamethoxazole-Trimethoprim 800-160 MG 1 tablet 1 ho ur prior to your cystoscopy Orally Once for 1 days Oct, Not-Taking Xiidra 2gtts Ophthalmic Twice a day Active Spiriva Respimat 2.5 MCG/ACT 2 puffs Inhalation Once a day Active Ampicillin 500 MG 1 capsule 1 hour before or 2 hours after a meal Orally every 6 hrs for 14 days Oct, Not-Taking Singulair 10 mg 1 tablet in the evening Orally Once a day for 90 Active metroNIDAZOLE 500 MG 1 tablet Orally every 8 hrs/prn for 10 day(s) prn for diverticulitis Active Levothroid 25 MCG 1 tablet every morning on an empty stoma ch Orally Once a day Not-Taking Albuterol Sulfate HFA 108 (90 Base) MCG/ACT 1-2 puffs Inhalation q4hp sob/wheeze Jul, Active Librax 5-2.5 MG 1 capsule before meals or at hs Orally four times daily as needed for intestinal spasms for 90 day(s) Active Bacid - as directed Orally bid for 90 day(s) September, Active Albuterol Sulfate HFA 108 (90 Base) MCG/ACT 1 puff as needed Inhalation every 4 hrs Active Pantoprazole Sodium 40 MG TAKE ONE TABLET BY MOUTH TWICE A DAY for 90 Active Diflucan 150 MG 1 tablet Orally Daily for 7 day(s) Oct, Not-Taking Amoxicillin-Pot Clavulanate 875-125 MG 1 tablet Orally every 12 hrs for 10 day(s) Feb, Active guaiFENesin-Codeine 100-10 MG/5ML 10 ml as needed Oral ly every 4 hrs for 5 day(s) Feb, Active Cyclobenzaprine HCl 10 MG 1 tablet at bedtime as neede d Orally Once a day for 10 day(s) Nov, Not-Taking Qvar Active Levothyroxine Sodium 25 MCG 1 tab orally Daily for 90 day(s) Active Cipro 500 MG 1 tablet Orally every 12 hrs for 10 prn Active Pyridium 200 MG 1 tablet after meals Orally Three times a day, prn for 10 days Oct, Not-Taking predniSONE 10 MG 3 tablets Orally Once a day for 5 day(s) Nov, Not-Taking Amlodipine Besylate 5 MG TAKE ONE TABLET BY MOUTH EVERY DAY for 90 Active Diphenoxylate-Atropine 2.5-0.025 MG 1 tablet as needed Orally Four times a day for 30 days Active Flonase 50 MCG/DOSE 1 spray in each nostril Nasally Once a day as nee ded Active Nystatin 806550 UNIT/GM as directed Externally under breast Dailyprn for 30 Days September, Active Bactrim DS 800-160 MG 1 tablet Orally Twice a day for 10 day(s) Nov, Not-Taking Diflucan 150 MG 1 tablet Orally qday, repeat one in 3 days for 2 days Nov, Not-Taking Advair Diskus 500-50 MCG/DOSE 1 puff Inhalation Twice a day-CHRIS for 9 0 Active PROCEDURES No Information RESULTS No Results REASON FOR VISIT sinus congestion MEDICAL (GENERAL) HISTORY Type Description Date Medical [...] 12/2017 Surgical History Hiatal hernia repair/fundoplication- Dr Flor 02/2018 Surgical History Partial hysterectomy/WITH BLADDER LIFT Amanda Etienne 11/20/2018 Surgical History cystoscopy 12/01/2019 Surgical History Hysterectomy w/bladder lift repair 0 Surgical History removal and repair of bladder suspension mesh 01/2020 Hospitalization History over night with surgery Goals Section No Information Health Concerns No Information MEDICAL EQUIPMENT No Information MENTAL STATUS No Information FUNCTIONAL STATUS No Information ASSESSMENTS No Information PLAN OF TREATMENT Medication Medication Name Sig Start Date Stop Date guaiFENesin-Codeine 100-10 MG/5ML 10 ml as needed Oral ly every 4 hrs for 5 day(s) Feb, Amoxicillin-Pot Clavulanate 875-125 MG 1 tablet Orally every 12 hrs for 10 day(s) Feb, guaiFENesin-Codeine 200-10 MG/5ML 10 ml as needed Oral ly every 6 hrs for 5 day(s) Feb, Next Appt Details Provider Name:Beto Nelson, 1 11:15:00 AM, [address], , [place], [address], Provider Name:Pauline Whitten, 2020-05 01:15:00 PM, [address] , , [place], [address], Insurance Providers Payer Name Payer Address Payer Phone Insured Name Patient Relati onship to Insured Coverage Start Date Coverage End Date [facility] [address] [facility] [id number] MARIAELENA GOODMAN
--- OUTSIDE RECORDS SUMMARY | 2021-04-27 06:52 | CCD ---
Author Author [facility] Organization [facility] Address Unknown Phone Unavailable Care Team Providers Care Inspector Floor Sub Assembly Name Role Phone Pauline Whitten Unavailable PROBLEMS Type Condition ICD9-CM Code BDQ07-BI Code Onset Dates Condition S tatus W/U Status Risk SNOMED Code Notes Problem Symptomatic menopausal or female climacteric states N95.1 Active confirmed 97556552 Problem Diverticulitis of colon (without mention of hemorrhage) K57.32 Active confirmed 536256880 Problem Mixed hyperlipidemia E78.2 Active confirmed 725054378 Problem Cystocele, midline N81.11 Active confirmed 4 58476537 Problem Pelvic organ prolapse quantification stage 3 cystocele N81.10 Active confirmed 563681998 Problem Epidermal cyst of vulva N90.7 Active confirmed 38368804 Problem Hypothyroidism, unspecified type E03.9 Active conf irmed 83617744 Problem Gastroesophageal reflux disease without esophagitis K21.9 Active confirmed 923252969 Problem Sinusitis, unspecified chronicity, unspecified location J32.9 Active confirmed 51477923 Problem Elbow tendonitis M77.8 Active confirmed 331 685097899 Problem Irritable bowel syndrome with constipation K58.1 Active confirmed 504858486 Problem Tinnitus, unspecified laterality H93.19 Active conf irmed 75081951 Problem Excessive and frequent menstruation N92.0 Acti ve confirmed 941676540 Problem Surgical menopause, symptomatic E89.41 Active confi rmed 004766576 Problem Female cystocele N81.10 Active confirmed 252 942465 Problem Asthma with acute exacerbati on, unspecified asthma severity, unspecified whether persistent J45.901 Active confirmed 073716293 Problem Leukocytosis, unspecified D72.829 Active confirmed 623838655 Problem Unspecified urinary incontinence R32 Active conf irmed 343333755 Problem Allergic rhinitis, unspecified allergic rhinitis type J30.9 Active confirmed 77538909 Problem Vaginal prolapse N81.10 Active confirmed 398 101722 Problem Essential hypertension I10 Active confirmed 72983418 Problem Mild intermittent asthma without complication J45. 20 Active confirmed 463784392 Problem Renal mass N28.89 Active confirmed 894676685 Problem Bladder calculus N21.0 Active confirmed 706 39817 Problem Cystocele with incomplete uterovaginal prolapse N8 1.2 Active confirmed 361967035 Problem Incontinence in female R32 Active confirmed 85868963 ALLERGIES Allergen (clinical drug ingredient) Drug/Non Drug Allergy do cumented on EMR Reaction Allergy Type Onset Date Status moxifloxacin Avelox Nausea/Vomiting Drug Allergy Activ e azithromycin Zithromax([facility] Code:[address]-31) Diarrhea Drug Allerg y Active lisinopril Lisinopril([facility] Code:[address]-70) Angioedema Drug Allergy Active losartan Losartan Potassium([facility] Code:[address]-37) CHRIS i nduced angioedema Drug Allergy Active ENCOUNTERS from 1960 to 2021-03-14 Encounter Location Date Provider Diagnosis [address] [phone] [place] [address] Feb, Pauline Alberry Cough R05.9 IMMUNIZATIONS Vaccine Route Administration Date Status Influenza [...] Education Language: Question Answer Notes Languages spoken: Telugu Christian: Question Answer Notes Christian 21 Mandaen Sexual Hx: Question Answer Notes Had sex [...] a day as nee ded Active Nystatin 631199 UNIT/GM as directed Externally under breast Dailyprn [...] Information RESULTS No Results REASON FOR VISIT resend rx MEDICAL (GENERAL) HISTORY Type Description Date Medical [...] Surgical History Partial hysterectomy/WITH BLADDER LIFT Amanda tEienne 11/20/2018 Surgical History cystoscopy 12/01/2019 Surgical History Hysterectomy w/bladder lift repair 0 Surgical History removal and repair of bladder suspension mesh 01/2020 Hospitalization History over night with surgery Goals Section No Information Health Concerns No Information MEDICAL EQUIPMENT No Information MENTAL STATUS No Information FUNCTIONAL STATUS No Information ASSESSMENTS Encounter Date Diagnosis Assessment Notes Treatment Notes Treatm ent Clinical Notes Feb, Cough (ICD-10 - R05.9) PLAN OF TREATMENT Medication Medication Name Sig Start Date Stop Date guaiFENesin-Codeine 100-10 MG/5ML 10 ml as needed Oral ly every 4 hrs for 5 day(s) Feb, Amoxicillin-Pot Clavulanate 875-125 MG 1 tablet Orally every 12 hrs for 10 day(s) Feb, guaiFENesin-Codeine 200-10 MG/5ML 10 ml as needed Oral ly every 6 hrs for 5 day(s) Feb, Next Appt Details Provider Name:Beto Nelson, 2021-04- 1 11:15:00 AM, [address], , [place], [address], Provider Name:Pauline Whitten, 2020-05 2- 01:15:00 PM, [address], , [place], [address], Insurance Providers Payer Name Payer Address Payer Phone Insured Name Patient Relati onship to Insured Coverage Start Date Coverage End Date [facility] [address] [facility] [id number] MARIAELENA GOODMAN
--- OUTSIDE RECORDS SUMMARY | 2021-04-27 06:52 | CCD | Continuity of Care Document ---
Author Author Julita [facility]RISTOPHER [facility] Organization Unknown Address [address] [place] [address], [address] [place] [address] Phone [phone] Care Team Providers Care Retail Salesworker Name Role Phone Brisa MinorN.PErica AUTM [phone] AUTM Unavailable Pauline Whitten AUTM [phone] Problems Active Problems Provider Date Bilateral tinnitus Kenrick Irene MD Onset: 10/15/2017 Deviated nasal septum Kenrick Irene MD Onset: 10/15/2017 Chronic rhinitis Kenrick Irene MD Onset: 10/15/2017 Dysphagia Kenrick Irene MD Onset: 10/15/2017 Gastroesophageal reflux disease Kenrick Irene MD Onset: 0 11/29/2017 Diaphragmatic hernia Kenrick Irene MD Onset: 11/29/2017 Anxiety state Kenrick Irene MD Onset: 11/29/2017 Headache Kenrick Irene MD Onset: 11/29/2017 Social History Type Date Description Comments Sex Unknown Smokeless Tobacco Never Used Smokeless Tobacco ETOH Use Sociable ETOH Use 1 A Month Recreational Drug Use Denies Drug Use Tobacco Use Start: 05/27/77 End: 05/27/00 Patient is a forme r smoker hx; 1/2 ppd since age 17; quit 2000 Smoking Status Reviewed: 02/09/21 Patient is a former smoker hx ; 1/2 ppd since age 17; quit 2000 Exercise Type/Frequency Exercises regularly Allergies, Adverse Reactions, Alerts Active Allergies Criticality Reaction | Severity Comments Date Penicillin Unable to assess criticality 07/14/2015 Avelox Unable to assess criticality 07/14/2015 Erythromycin Unable to assess criticality 07/14/2015 Doxycycline Unable to assess criticality 07/14/2015 Zithromax Unable to assess criticality 07/14/2015 Levaquin Unable to assess criticality Dizziness, Nausea 08/12/2019 Lisinopril Unable to assess criticality 02/09/2021 Liu Inhibitors Unable to assess criticality 02/09/2021 Medications Active Medications SIG Qnty Indications Ordering Provide r Date Dulcolax 5mg Tablets DR take 4 tabs by mouth prior to procedure per instructions. 4tabs Z12.11 Timmy Moya MD 02/09/2021 Clenpiq 10-3.5-12mg-GM -GM/160ML S olution take as directed per doctor's bowel prep instructions. 320ml Z12.1 1 Timmy Moya MD 02/09/2021 Spiriva Respimat 1.25mcg/Act Aeros ol 2 puffs inhaled every day 12gm Christine Wilburn M.D. 03/2021 Fluticasone Propionate 50mcg/Act Suspension [place] Two Sprays In Each Nostril Every Day 16units R09.82 Christine Wilburn M.D. 05/21/2020 Nebulizer Kit/Tubing/Mouthpiece K it dispense 2, use as directed 2units Christine Wilburn M.D. 03/24/2020 Qvar Redihaler 80mcg/Act Aerosol 1 puff twice a day 10.600gm Christine Wilburn M.D. 01/19/2020 Nebusal 3% Nebulizer 1 vial two -three times a day as needed nebulized with albuterol 270vials J47.9 Christine Wilburn M.D. 09/15/2019 Ventolin HFA 108(90Base) mcg/Act A erosol 2 puffs every 4 hours as needed 18gm May tillman M.D. 09/07/2019 Zinc 100mg Tablets Daily Unknown Airborne Chewtabs Daily Unknown Vitamin C 500mg Tablets Daily Unknown Multivitamin Adults Tablets Daily Unknown Mucinex 600mg Tablets ER 12HR 1 by mouth twice a day Unknown Advair Diskus 500-50mcg/Dose Aeros ol 1 puff twice a day 60units Christine Wilburn M.D. Dicyclomine HCL 10mg Capsules 1 tab bid Unknown Amlodipine Besylate 5mg Tablets by mouth every night Unknown Singulair 10mg Tablets 1 by mouth every night at bedtime Unknown Albuterol Sulfate (2 .5mg/3ML) 0.083% Nebulizer 1 vial every 6 hours as needed 360ml Tammy Wilburn M.D. Levothyroxine Sodium 25mcg Tablets 1 by mouth every day Unknown Atenolol 25mg Tablets 1 tab by mouth daily Unknown Pantoprazole Sodium 40mg Tablets D R 1 tab by mouth twice a day 60tabs Unknown Medications Administered in Office Medication SIG Qnty Indications Ordering Provider Date Covid-19 vaccine, Unspecified Inj ection Unknown 08/26/2020 Covid-19 vaccine, Unspecified Inj ection Unknown 08/05/2020 Immunizations Description No Information Available Vital Signs Date Vital Result Comment 02/09/2021 10:50am BP Systolic 118 mmHg BP Diastolic 64 mmHg Heart Rate 78 /min O2 % BldC Oximetry 98 % Height 65 inches 5'5" Weight 197.00 lb BMI (Body Mass Index) 32.8 kg/m2 [place] Body Weight 125 lb Weight 89.359 kg BSA (Body Surface Area) 1.97 m2 09/01/2020 11:21am BP Systolic 126 mmHg BP Diastolic 74 mmHg Heart Rate 94 /min O2 % BldC Oximetry 99 % Body Temperature 97.9 F Height 65 inches 5'5" Weight 203.25 lb BMI (Body Mass Index) 33.8 kg/m2 [place] Body Weight 125 lb Weight 92.194 kg BSA (Body Surface Area) 1.99 m2 Results Test Acquired Date Facility Test Result H/L Range Note FVL/Sewickley 02/09/2021 [facility] PDFReport SEE IMAGE FVC-Pred 3.48 L FVC-Pre 3.26 L FVC-%Pred-Pre 93 L FVC-LLN 2.77 L Fev1-Pred 2.70 L Fev1-Pre 2.46 L Fev1-%Pred-Pre 90 L Fev1-LLN 2.10 L Fev6-Pred 3.37 L Fev6-Pre 3.26 L Fev6-%Pred-Pre 96 L Fev6-LLN 2.66 L Ook6kbt-Fazg 78 % Wfq2sav-Abp 75 % Bme1tby-%Pred-Pre 96 % Tiz0edt-GIB 69 % Ywm4dne-Uyyw 97 % Fok9uan-Duz 100 % Eqg1mcn-%Pred-Pre 103 % FEFMax-Pred 6.55 L/E/sec FEFMax-Pre 4.33 L/E/sec FEFMax-%Pred-Pre 66 L/E/sec FEFMax-LLN 4.78 L/E/sec Nir0090-Pnjl 2.49 L/E/sec Yql0575-Fhh 2.05 L/E/sec Tqp8223-%Pred-Pre 82 L/E/sec Iou4559-WYV 1.21 L/E/sec ExpTime-Pre 6.51 sec Hgn4cae3-Spie 81 % Bdp5mim3-Udv 75 % Guc8cnr8-%Pred-Pre 93 % Hpz8ieb5-FNP 72 % FVL/Phan 09/01/2020 [employer] PDFReport SEE IMAGE FVC-Pred 3.48 L FVC-Pre 3.37 L FVC-%Pred-Pre 96 L FVC-LLN 2.77 L Fev1-Pred 2.70 L Fev1-Pre 2.51 L Fev1-%Pred-Pre 92 L Fev1-LLN 2.10 L Fev6-Pred 3.37 L Fev6-Pre 3.37 L Fev6-%Pred-Pre 100 L Fev6-LLN 2.66 L Bmf7xaz-Kwoq 78 % Irs1fny-Dgn 74 % Dun6kow-%Pred-Pre 94 % Bvh1siv-CBD 69 % Aoa3vsf-Zlsv 97 % Mqa3pgf-Mlr 100 % Dbz1soe-%Pred-Pre 103 % FEFMax-Pred 6.55 L/E/sec FEFMax-Pre 6.14 L/E/sec FEFMax-%Pred-Pre 93 L/E/sec FEFMax-LLN 4.78 L/E/sec Fwg3384-Tjqc 2.49 L/E/sec Bnc3664-Poe 1.91 L/E/sec Lch6727-%Pred-Pre 76 L/E/sec Jax1971-FFY 1.21 L/E/sec ExpTime-Pre 5.21 sec Tra1qfy5-Dfux 81 % Suo1ezi2-Gli 74 % Cgh0ega6-%Pred-Pre 91 % Phj7rge3-KNS 72 % Procedures Date Code Description Status 02/09/2021 94148 Office/Outpatient Established Mo d MDM 30-39 Min Completed 02/09/2021 39825 Office/Outpatient New Moderate M DM 45-59 Minutes Completed 02/09/2021 04257 Spirometry Completed 09/01/2020 31309 Office/Outpatient Established Mo d MDM 30-39 Min Completed 09/01/2020 73774 Spirometry Completed Medical Devices Description No Information Available Encounters Type Date Location Provider Dx Diagnosis Office Visit 02/09/2021 12:45p [facility] Marjorie Christopher RPA-C Z12.11 Encounter for screening for malignant neoplasm of colon Z86.010 Personal history of colonic polyps K21.9 Gastro-esophageal reflux dis ease without esophagitis R13.10 Dysphagia, unspecified Office Visit 02/09/2021 11:00a [facility] Pulmonary/Thoracic Christine Ramsey M.D. J47.9 Bronchiectasis, uncomplicate d J45.40 Moderate persistent asthma, uncomplicated R09.82 Postnasal drip Z87.891 Personal history of nicotine dependence Office Visit 09/01/2020 11:30a [facility] Pulmonary/Thoracic Christine Ramesy M.D. J47.9 Bronchiectasis, uncomplicate d J45.40 Moderate persistent asthma, uncomplicated R09.82 Postnasal drip Z87.891 Personal history of nicotine dependence Assessments Date Code Description Provider 02/09/2021 Z12.11 Encounter for screening for carol gnant neoplasm of colon Marjorie A Jayden, RPA-C 02/09/2021 Z86.010 Personal history of colonic poly ps Marjorie Christopher, RPA-C 02/09/2021 J47.9 Bronchiectasis, uncomplicated Christine Candelario M.D. 02/09/2021 K21.9 Gastro-esophageal reflux disease without esophagitis Marjorie Christopher RPA-C 02/09/2021 R13.10 Dysphagia, unspecified Marjorie Christopher RPA-C 02/09/2021 J45.40 Moderate persistent asthma, unco mplicated Christine Wilburn M.D. 02/09/2021 R09.82 Postnasal drip Christine Wilburn M.D. 02/09/2021 Z87.891 Personal history of nicotine dep Christine Burt M.D. 09/01/2020 J47.9 Bronchiectasis, uncomplicated Christine Candelario M.D. 09/01/2020 J45.40 Moderate persistent asthma, unco mplicated Christine Wilburn M.D. 09/01/2020 R09.82 Postnasal drip Christine Wilburn M.D. 09/01/2020 Z87.891 Personal history of nicotine dep Christine Burt M.D. Plan of Treatment Future Appointment(s):* 03/31/2021 7:55 am - Edi Gasca M.D. at [facility] * 08/11/2021 2:30 pm - Christine Wilburn M.D. at [facility] Pulmonary/Thoracic 02/09/2021 - Christine Wilburn M.D.* J47.9 Bronchiectasis, uncomplicated * J45.40 Moderate persistent asthma, uncomplicated * R09.82 Postnasal drip * Z87.891 Personal history of nicotine dependence * * New Labs:* Flow Volume Loop/Spirometry, Scheduled: 08/11/21 * Follow up:* Follow-up in 6 mo with spirometry Functional Status Description No Information Available Mental Status Description No Information Available Referrals Description No Information Available
--- OUTSIDE RECORDS SUMMARY | 2021-04-27 06:52 | CCD ---
Author Author [facility] Organization [facility] Address Unknown Phone Unavailable Care Team Providers Care Instructor Dramatic Arts Name Role Phone Beto Nelson Unavailable PROBLEMS Type Condition ICD9-CM Code IHK69-UQ Code Onset Dates Condition S tatus W/U Status Risk SNOMED Code Notes Problem Symptomatic menopausal or female climacteric states N95.1 Active confirmed 17997527 Problem Diverticulitis of colon (without mention of hemorrhage) K57.32 Active confirmed 818896035 Problem Mixed hyperlipidemia E78.2 Active confirmed 926604161 Problem Cystocele, midline N81.11 Active confirmed 4 13529770 Problem Pelvic organ prolapse quantification stage 3 cystocele N81.10 Active confirmed 831200652 Problem Epidermal cyst of vulva N90.7 Active confirmed 53320449 Problem Hypothyroidism, unspecified type E03.9 Active conf irmed 13966914 Problem Gastroesophageal reflux disease without esophagitis K21.9 Active confirmed 231801122 Problem Sinusitis, unspecified chronicity, unspecified location J32.9 Active confirmed 81500575 Problem Elbow tendonitis M77.8 Active confirmed 331 343474875 Problem Irritable bowel syndrome with constipation K58.1 Active confirmed 327976581 Problem Tinnitus, unspecified laterality H93.19 Active conf irmed 12585151 Problem Excessive and frequent menstruation N92.0 Acti ve confirmed 730173796 Problem Surgical menopause, symptomatic E89.41 Active confi rmed 952790870 Problem Female cystocele N81.10 Active confirmed 252 373216 Problem Asthma with acute exacerbati on, unspecified asthma severity, unspecified whether persistent J45.901 Active confirmed 610773073 Problem Leukocytosis, unspecified D72.829 Active confirmed 743968978 Problem Unspecified urinary incontinence R32 Active conf irmed 389328151 Problem Allergic rhinitis, unspecified allergic rhinitis type J30.9 Active confirmed 08008883 Problem Vaginal prolapse N81.10 Active confirmed 398 879589 Problem Essential hypertension I10 Active confirmed 21554309 Problem Mild intermittent asthma without complication J45. 20 Active confirmed 945713327 Problem Renal mass N28.89 Active confirmed 780011182 Problem Bladder calculus N21.0 Active confirmed 706 78686 Problem Cystocele with incomplete uterovaginal prolapse N8 1.2 Active confirmed 845598770 Problem Incontinence in female R32 Active confirmed 06841152 ALLERGIES Allergen (clinical drug ingredient) Drug/Non Drug Allergy do cumented on EMR Reaction Allergy Type Onset Date Status moxifloxacin Avelox Nausea/Vomiting Drug Allergy Activ e azithromycin Zithromax([facility] Code:[address]-64) Diarrhea Drug Allerg y Active lisinopril Lisinopril([facility] Code:[address]-68) Angioedema Drug Allergy Active losartan Losartan Potassium([facility] Code:[address]-88) CHRIS i nduced angioedema Drug Allergy Active ENCOUNTERS from 1960 to 2021-03-06 Encounter Location Date Provider Diagnosis [facility] [address] [phone] [place] [address] Feb, 2021 Beto Nelson Frequency of micturition R35.0 and Vagin al prolapse N81.10 IMMUNIZATIONS Vaccine Route Administration Date Status Influenza [...] Education Language: Question Answer Notes Languages spoken: Turkish Yazdanism: Question Answer Notes Yazdanism 21 Congregation Sexual Hx: Question Answer Notes Had sex [...] FOR REFERRAL No Information VITAL SIGNS Weight 195 lbs Feb, Height 64 in Feb, BMI 33.47 kg/m2 Feb, Heart Rate 88 /min Feb, Respiratory Rate 18 /min Feb, Temperature 98.0 degrees Fahrenheit Feb, Oximetry 94 Feb, Blood pressure systolic 120 mm Hg Feb, Blood pressure diastolic 76 mm Hg Feb, MEDICATIONS Medication SIG (Take, Route, Frequency, Duration) Notes Start Da te End Date Status Pyridium 200 MG 1 tablet after meals Orally Three times a day, prn for 10 days Oct, Not-Taking Nystatin 282930 UNIT/GM as directed Externally under breast Dailyprn for 30 Days September, Active Bacid - as directed Orally bid for 90 day(s) September, Active Cyclobenzaprine HCl 10 MG 1 tablet at bedtime as neede d Orally Once a day for 10 day(s) Nov, Not-Taking Sulfamethoxazole-Trimethoprim 800-160 MG 1 tablet 1 ho ur prior to your cystoscopy Orally Once for 1 days Oct, Not-Taking Flonase 50 MCG/DOSE 1 spray in each nostril Nasally Once a day as nee ded Active Cipro 500 MG 1 tablet Orally every 12 hrs for 10 prn Active Bactrim DS 800-160 MG 1 tablet Orally Twice a day for 10 day(s) Nov, Not-Taking Librax 5-2.5 MG 1 capsule before meals or at hs Orally four times daily as needed for intestinal spasms for 90 day(s) Active metroNIDAZOLE 500 MG 1 tablet Orally every 8 hrs/prn for 10 day(s) prn for diverticulitis Active Diflucan 150 MG 1 tablet Orally Daily for 7 day(s) Oct, Not-Taking Levothroid 25 MCG 1 tablet every morning on an empty stoma ch Orally Once a day Not-Taking predniSONE 10 MG 3 tablets Orally Once a day for 5 day(s) Nov, Not-Taking Spiriva Respimat 2.5 MCG/ACT 2 puffs Inhalation Once a day Active Pantoprazole Sodium 40 MG TAKE ONE TABLET BY MOUTH TWICE A DAY for 90 Active Dicyclomine HCl 10 MG 1 capsules Orally Four times a day for 30 Active Xiidra 2gtts Ophthalmic Twice a day Active Singulair 10 mg 1 tablet in the evening Orally Once a day for 90 Active Atenolol 25 mg 1 tablet orally Once a day Active Ampicillin 500 MG 1 capsule 1 hour before or 2 hours after a meal Orally every 6 hrs for 14 days Oct, Not-Taking Nitrofurantoin Macrocrystal 100 MG 1 capsule with food or milk Orally twice daily for 5 day(s) Jul, Not-Taking Levothyroxine Sodium 25 MCG 1 tab orally Daily for 90 day(s) Active Albuterol Sulfate HFA 108 (90 Base) MCG/ACT 1-2 puffs Inhalation q4hp sob/wheeze Jul, Active Advair Diskus 500-50 MCG/DOSE 1 puff Inhalation Twice a day-CHRIS for 9 0 Active Diphenoxylate-Atropine 2.5-0.025 MG 1 tablet as needed Orally Four times a day for 30 days Active Albuterol Sulfate HFA 108 (90 Base) MCG/ACT 1 puff as needed Inhalation every 4 hrs Active Qvar Active Diflucan 150 MG 1 tablet Orally qday, repeat one in 3 days for 2 days Nov, Not-Taking Amlodipine Besylate 5 MG TAKE ONE TABLET BY MOUTH EVERY DAY for 90 Active PROCEDURES from 1960 to 2021-03-06 Procedure Date Ordered Result Body Site Medication: Cipro Tab 500mg Orally (Ciprofloxacin) 2021-03-03 N/A Med: Lidocaine Jelly 2% 6ml Intravesically (Glydo) 2021-03-03 N/A RESULTS No Results REASON FOR VISIT No Information MEDICAL (GENERAL) HISTORY Type Description Date Medical [...] Treatment Notes Treatm ent Clinical Notes Feb, Frequency of micturition (ICD-10 - R35.0) Feb, Vaginal prolapse (ICD-10 - N81.10) PLAN OF TREATMENT Treatment Notes Test Name Order Date Comprehensive Metabolic Profile (CMP) 2021-03-03 CBC - Complete Blood Count 2021-03-03 URINE CULTURE 2021-03-03 [facility]A URINALYSIS 2021-03-03 [facility] Chest, 2 view (PA\Lat) 2021-03-03 Electrocardiogram (EKG) 2021-03-03 Next Appt Details Cystocele repair Reason:Cystocele Provider Name:Pauline Whitten, 2020-05 01:15:00 PM, [address], , [place], [address], Follow Up:Cystocele repairCystocele Insurance Providers Payer Name Payer Address Payer Phone Insured Name Patient Relati onship to Insured Coverage Start Date Coverage End Date [facility] [address] [facility] [id number] MARIAELENA NUNEZ
--- OUTSIDE RECORDS SUMMARY | 2021-04-27 06:52 | CCD ---
Author Author [facility] Organization [facility] Address Unknown Phone Unavailable Care Team Providers Care Doctor Of Chiropractic Name Role Phone Pauline Whitten Unavailable PROBLEMS Type Condition ICD9-CM Code [id number] Code Onset Dates Condition S tatus W/U Status Risk SNOMED Code Notes Problem Symptomatic menopausal or female climacteric states N95.1 Active confirmed 51757392 Problem Diverticulitis of colon (without mention of hemorrhage) K57.32 Active confirmed 055196126 Problem Mixed hyperlipidemia E78.2 Active confirmed 049042551 Problem Cystocele, midline N81.11 Active confirmed 4 33601625 Problem Pelvic organ prolapse quantification stage 3 cystocele N81.10 Active confirmed 141027452 Problem Epidermal cyst of vulva N90.7 Active confirmed 84106574 Problem Hypothyroidism, unspecified type E03.9 Active conf irmed 29606963 Problem Gastroesophageal reflux disease without esophagitis K21.9 Active confirmed 867497758 Problem Sinusitis, unspecified chronicity, unspecified location J32.9 Active confirmed 31553343 Problem Elbow tendonitis M77.8 Active confirmed 331 164072487 Problem Irritable bowel syndrome with constipation K58.1 Active confirmed 595149692 Problem Tinnitus, unspecified laterality H93.19 Active conf irmed 29009471 Problem Excessive and frequent menstruation N92.0 Acti ve confirmed 598454438 Problem Surgical menopause, symptomatic E89.41 Active confi rmed 206369355 Problem Female cystocele N81.10 Active confirmed 252 645837 Problem Asthma with acute exacerbati on, unspecified asthma severity, unspecified whether persistent J45.901 Active confirmed 092858839 Problem Leukocytosis, unspecified D72.829 Active confirmed 668277889 Problem Unspecified urinary incontinence R32 Active conf irmed 090162137 Problem Allergic rhinitis, unspecified allergic rhinitis type J30.9 Active confirmed 13716214 Problem Vaginal prolapse N81.10 Active confirmed 398 904376 Problem Essential hypertension I10 Active confirmed 45538315 Problem Mild intermittent asthma without complication J45. 20 Active confirmed 732466321 Problem Renal mass N28.89 Active confirmed 909608358 Problem Bladder calculus N21.0 Active confirmed 706 88833 Problem Cystocele with incomplete uterovaginal prolapse N8 1.2 Active confirmed 600935118 Problem Incontinence in female R32 Active confirmed 93976296 ALLERGIES Allergen (clinical drug ingredient) Drug/Non Drug Allergy do cumented on EMR Reaction Allergy Type Onset Date Status moxifloxacin Avelox Nausea/Vomiting Drug Allergy Activ e azithromycin Zithromax([facility] Code:[address]-56) Diarrhea Drug Allerg y Active lisinopril Lisinopril([facility] Code:[address]-74) Angioedema Drug Allergy Active losartan Losartan Potassium([facility] Code:[address]-54) CHRIS i nduced angioedema Drug Allergy Active ENCOUNTERS from 1962 to 2021-03-13 Encounter Location Date Provider Diagnosis [address] [phone] [place] [address] 15 Feb, 2021 Pauline Whitten IMMUNIZATIONS Vaccine Route Administration Date [...] Education Language: Question Answer Notes Languages spoken: Romansh Adventist: Question Answer Notes Adventist 21 Islam Sexual Hx: Question Answer Notes Had sex [...] Notes Start Da te End Date Status Cipro 500 MG 1 tablet Orally every 12 hrs for 10 prn Active Bactrim DS 800-160 MG 1 tablet Orally Twice a day for 10 day(s) Nov, Not-Taking Pyridium 200 MG 1 tablet after meals Orally Three times a day, prn for 10 days Oct, Not-Taking Nystatin 550508 UNIT/GM as directed Externally under breast Dailyprn for 30 Days September, Active metroNIDAZOLE 500 MG 1 tablet Orally every 8 hrs/prn for 10 day(s) prn for diverticulitis Active Diflucan 150 MG 1 tablet Orally Daily for 7 day(s) Oct, Not-Taking Sulfamethoxazole-Trimethoprim 800-160 MG 1 tablet 1 ho ur prior to your cystoscopy Orally Once for 1 days Oct, Not-Taking Flonase 50 MCG/DOSE 1 spray in each nostril Nasally Once a day as nee ded Active Levothroid 25 MCG 1 tablet every morning on an empty stoma ch Orally Once a day Not-Taking Ampicillin 500 MG 1 capsule 1 hour before or 2 hours after a meal Orally every 6 hrs for 14 days Oct, Not-Taking Librax 5-2.5 MG 1 capsule before meals or at hs Orally four times daily as needed for intestinal spasms for 90 day(s) Active Advair Diskus 500-50 MCG/DOSE 1 puff Inhalation Twice a day-CHRIS for 9 0 Active Atenolol 25 mg 1 tablet orally Once a day Active predniSONE 10 MG 3 tablets Orally Once a day for 5 day(s) Nov, Not-Taking Pantoprazole Sodium 40 MG TAKE ONE TABLET BY MOUTH TWICE A DAY for 90 Active Albuterol Sulfate HFA 108 (90 Base) MCG/ACT 1-2 puffs Inhalation q4hp sob/wheeze Jul, Active Nitrofurantoin Macrocrystal 100 MG 1 capsule with food or milk Orally twice daily for 5 day(s) Jul, Not-Taking Singulair 10 mg 1 tablet in the evening Orally Once a day for 90 Active Dicyclomine HCl 10 MG 1 capsules Orally Four times a day for 30 Active Xiidra 2gtts Ophthalmic Twice a day Active Cyclobenzaprine HCl 10 MG 1 tablet at bedtime as neede d Orally Once a day for 10 day(s) Nov, Not-Taking Levothyroxine Sodium 25 MCG 1 tab orally Daily for 90 day(s) Active Bacid - as directed Orally bid for 90 day(s) September, Active Spiriva Respimat 2.5 MCG/ACT 2 puffs Inhalation Once a day Active Diphenoxylate-Atropine 2.5-0.025 MG 1 tablet as [...] MOUTH EVERY DAY for 90 Active PROCEDURES No Information RESULTS No Results REASON FOR VISIT refill MEDICAL (GENERAL) HISTORY Type Description Date Medical [...] Medication Name Sig Start Date Stop Date Advair Diskus 500-50 MCG/DOSE 1 puff Inhalation Twice a day-CHRIS for 90 Next Appt Details Provider Name:Pauline Whitten 2020-07-03 01:15:00 PM, [address], , [place], [address], Insurance Providers Payer Name Payer Address Payer Phone Insured Name Patient Relati onship to Insured Coverage Start Date Coverage End Date [facility] [address] [facility] [id number] MARIAELENA GOODMAN self
--- OUTSIDE RECORDS SUMMARY | 2021-04-27 06:52 | CCD ---
Author Author [facility] Organization [facility] Address Unknown Phone Unavailable Care Team Providers Care Tube Depatcher Name Role Phone Pauline Whitten Unavailable PROBLEMS Type Condition ICD9-CM Code ONM16-UZ Code Onset Dates Condition S tatus W/U Status Risk SNOMED Code Notes Problem Symptomatic menopausal or female climacteric states N95.1 Active confirmed 95053342 Problem Diverticulitis of colon (without mention of hemorrhage) K57.32 Active confirmed 887989191 Problem Mixed hyperlipidemia E78.2 Active confirmed 622879615 Problem Cystocele, midline N81.11 Active confirmed 4 99837232 Problem Pelvic organ prolapse quantification stage 3 cystocele N81.10 Active confirmed 356250232 Problem Epidermal cyst of vulva N90.7 Active confirmed 42184561 Problem Hypothyroidism, unspecified type E03.9 Active conf irmed 16861628 Problem Gastroesophageal reflux disease without esophagitis K21.9 Active confirmed 599234958 Problem Sinusitis, unspecified chronicity, unspecified location J32.9 Active confirmed 86987082 Problem Elbow tendonitis M77.8 Active confirmed 331 152138824 Problem Irritable bowel syndrome with constipation K58.1 Active confirmed 379850439 Problem Tinnitus, unspecified laterality H93.19 Active conf irmed 34080248 Problem Excessive and frequent menstruation N92.0 Acti ve confirmed 692490426 Problem Surgical menopause, symptomatic E89.41 Active confi rmed 370339747 Problem Female cystocele N81.10 Active confirmed 252 980424 Problem Asthma with acute exacerbati on, unspecified asthma severity, unspecified whether persistent J45.901 Active confirmed 875339228 Problem Leukocytosis, unspecified D72.829 Active confirmed 133928824 Problem Unspecified urinary incontinence R32 Active conf irmed 486009224 Problem Allergic rhinitis, unspecified allergic rhinitis type J30.9 Active confirmed 96527692 Problem Vaginal prolapse N81.10 Active confirmed 398 277707 Problem Essential hypertension I10 Active confirmed 26298322 Problem Mild intermittent asthma without complication J45. 20 Active confirmed 814777486 Problem Renal mass N28.89 Active confirmed 177272422 Problem Bladder calculus N21.0 Active confirmed 706 50062 Problem Cystocele with incomplete uterovaginal prolapse N8 1.2 Active confirmed 169201071 Problem Incontinence in female R32 Active confirmed 99107243 ALLERGIES Allergen (clinical drug ingredient) Drug/Non Drug Allergy do cumented on EMR Reaction Allergy Type Onset Date Status moxifloxacin Avelox Nausea/Vomiting Drug Allergy Activ e azithromycin Zithromax([facility] Code:[address]-06) Diarrhea Drug Allerg y Active lisinopril Lisinopril([facility] Code:[address]-97) Angioedema Drug Allergy Active losartan Losartan Potassium([facility] Code:[address]-66) CHRIS i nduced angioedema Drug Allergy Active ENCOUNTERS from 1960 to 2021-03-15 Encounter Location Date Provider Diagnosis [address] [phone] [place] [address] 19 Feb, 2021 Pauline Whitten Acute non-recurrent maxillary sinusitis J01.00 and Cough R05.9 IMMUNIZATIONS Vaccine Route Administration Date [...] Education Language: Question Answer Notes Languages spoken: Senegalese Shinto: Question Answer Notes Shinto 21 Religion Sexual Hx: Question Answer Notes Had sex [...] No Information VITAL SIGNS Weight 193 lbs Feb, Height 64 in Feb, BMI 33.12 kg/m2 Feb, Heart Rate 83 /min Feb, Respiratory Rate 18 /min Feb, Temperature 98.5 degrees Fahrenheit Feb, Oximetry 97%RA Feb, Blood pressure systolic 132 mm Hg Feb, Blood pressure diastolic 84 mm Hg Feb, MEDICATIONS Medication SIG (Take, [...] a day as nee ded Active Nystatin 222636 UNIT/GM as directed Externally under breast Dailyprn [...] RESULTS No Results REASON FOR VISIT sinus husam. x 3 weeks, couigh MEDICAL (GENERAL) HISTORY Type Description Date Medical [...] 02/2018 Surgical History Partial hysterectomy/WITH BLADDER LIFT D r [place] 11/20/2018 Surgical History cystoscopy 12/01/2019 Surgical History Hysterectomy w/bladder lift repair 0 Surgical History removal and repair of bladder suspension mesh 01/2020 Hospitalization History over night with surgery Goals Section No Information Health Concerns No Information MEDICAL EQUIPMENT No Information MENTAL STATUS No Information FUNCTIONAL STATUS No Information ASSESSMENTS Encounter Date Diagnosis Assessment Notes Treatment Notes Treatm ent Clinical Notes Feb, Acute non-recurrent maxillary sinusitis (ICD-10 - J01.00) Supportive care recommended. Feb, Cough (ICD-10 - R05.9) prn cough medicine given. . PLAN OF TREATMENT Medication Medication Name Sig Start Date Stop Date guaiFENesin-Codeine 100-10 MG/5ML 10 ml as needed Oral ly every 4 hrs for 5 day(s) Feb, Amoxicillin-Pot Clavulanate 875-125 MG 1 tablet Orally every 12 hrs for 10 day(s) Feb, guaiFENesin-Codeine 200-10 MG/5ML 10 ml as needed Oral ly every 6 hrs for 5 day(s) Feb, Treatment Notes Assessment Notes Clinical Notes Acute non-recurrent maxillary sinusitis Supportive care recommended. Cough prn cough medicine g iven. . Next Appt Details prn Reason: Provider Name:Pauline Whitten, 2020-05 1-04 02:00:00 PM, [address], , [place], [address], Provider Name:Beto Nelson, 11:15:00 AM, [address], , [place], [address], Provider Name:Pauline Whitten, 2020-05 2- 01:15:00 PM, [address], , [place], [address], Insurance Providers Payer Name Payer Address Payer Phone Insured Name Patient Relati onship to Insured Coverage Start Date Coverage End Date [facility] [address] [facility] [id number] MARIAELENA GOODMAN self
--- OUTSIDE RECORDS SUMMARY | 2021-04-27 06:52 | CCD | Continuity of Care Document ---
Author Author Julita CHRISTOPHER [facility] Organization Unknown Address [address] [place] [address], [address] [place] [address] Phone [phone] Care Team Providers Care Sr Risk Management Consultant Name Role Phone Brisa MinorN.PErica AUTM [phone] AUTM Unavailable Pauline Whitten AUTM Problems Active Problems Provider Date Bilateral tinnitus [...] 15; quit 2000 Exercise Type/Frequency Exercises regularly Allergies and adverse [...] SIG Qnty Indications Ordering Provide r Date Spiriva Respimat 1.25mcg/Act Aeros ol 2 puffs inhaled every day 12gm Christine Wilburn M.D. 03/2021 Fluticasone Propionate 50mcg/Act Suspension spray two sprays in each nostril every day 16units R09.82 Christine Wilburn M.D. 05/21/2020 Nebulizer [...] as needed 18gm May tillman M.D. 09/07/2019 Singulair 10mg Tablets 1 by mouth every night at bedtime Unknown Zinc 100mg Tablets Daily Unknown Airborne Chewtabs Daily Unknown Vitamin C 500mg Tablets Daily Unknown Multivitamin Adults Tablets Daily Unknown Mucinex 600mg Tablets ER 12HR 1 by mouth twice a day Unknown Advair Diskus 500-50mcg/Dose Aeros ol 1 puff twice a day 60units Christine Wilburn M.D. Dicyclomine HCL 10mg Capsules 1 tab bid Unknown Amlodipine Besylate 5mg Tablets by mouth every night Unknown Albuterol Sulfate (2 .5mg/3ML) 0.083% Nebulizer 1 vial every 6 hours as needed 360ml Tammy Wilburn M.D. Levothyroxine Sodium 25mcg Tablets 1 by mouth every day Unknown Atenolol 25mg Tablets 1 tab by mouth daily Unknown Pantoprazole Sodium 40mg Tablets D R 1 tab by mouth twice a day 60tabs Unknown History Medications Clenpiq 10-3.5-12mg-GM -GM/160ML S olution take as directed per doctor's bowel prep instructions. 320ml Z12.1 1 Timmy Moya MD 02/09/2021 - 04/13/[address] take 4 tabs by mouth prior to procedure per instructions. 4tabs Z12.11 Timmy Moya MD 02/09/2021 - 04/13/2021 Medications Administered in Office Medication SIG Qnty Indications Ordering Provider Date Covid-19 vaccine, Unspecified Inj ection Unknown 08/26/2020 Covid-19 vaccine, Unspecified Inj ection Unknown 08/05/2020 Immunizations Description No Information Available Vital Signs Date Vital Result Comment 04/14/2021 1:05pm BP Systolic 142 mmHg BP Diastolic 76 mmHg Height 65 inches 5'5" Weight 194.00 lb BMI (Body Mass Index) 32.3 kg/m2 [place] Body Weight 125 lb Weight 87.998 kg BSA (Body Surface Area) 1.95 m2 02/09/2021 10:50am BP Systolic 118 mmHg BP Diastolic 64 mmHg Heart Rate 78 /min O2 % BldC Oximetry 98 % Height 65 inches 5'5" Weight 197.00 lb BMI (Body Mass Index) 32.8 kg/m2 [place] Body Weight 125 lb Weight 89.359 kg BSA (Body Surface Area) 1.97 m2 Results Test Acquired Date Facility Test Result H/L Range Note Laboratory test finding 03/31/2021 [facility] [address] [place] [address] [phone] Pathology Request For Service (SEE NOTE) 1 FVL/[place] 02/09/2021 [employer] PDFReport SEE IMAGE FVC-Pred 3.48 L FVC-Pre 3.26 L FVC-%Pred-Pre 93 L FVC-LLN 2.77 L Fev1-Pred 2.70 L Fev1-Pre 2.46 L Fev1-%Pred-Pre 90 L Fev1-LLN 2.10 L Fev6-Pred 3.37 L Fev6-Pre 3.26 L Fev6-%Pred-Pre 96 L Fev6-LLN 2.66 L Dcw8kol-Fmcl 78 % Nvd0bga-Nla 75 % Njd9xty-%Pred-Pre 96 % Jsl3bei-KFP 69 % Btj4yng-Ugdn 97 % Hog9igx-Sgp 100 % Cgj6cog-%Pred-Pre 103 % FEFMax-Pred 6.55 L/E/sec FEFMax-Pre 4.33 L/E/sec FEFMax-%Pred-Pre 66 L/E/sec FEFMax-LLN 4.78 L/E/sec Chv7178-Sbls 2.49 L/E/sec Yqt1347-Ybf 2.05 L/E/sec Jpf7917-%Pred-Pre 82 L/E/sec Unr8418-RAY 1.21 L/E/sec ExpTime-Pre 6.51 sec Uih6uzf4-Qtgg 81 % Oek7pif4-Ozz 75 % Ioz2vin1-%Pred-Pre 93 % Apr2uxg8-AFS 72 % 1 FINAL DIAGNOSIS A-Gastric biopsy: Gastric mucosa with mild chronic inflammation and reactive changes. No H.pylori is identified. B-Esophagus, biopsy: Squamocolumnar junction mucosa with mild chronic inflammation and reactive changes. No intestinal metaplasia seen. C-Colon polyps, polypectomy: Tubular adenoma, fragments. Separate fragments of hyperplastic polyp. 04/03/2021 - 1050 CLINICAL DIAGNOSIS Heartburn, colon polyps 03/31/2021 - 1442 GROSS DIAGNOSIS A - Received in formalin labeled "gastric biopsy, R/O H. pylori" and consists of fragments of tissue, 0.1 x 0.1 x 0.1 cm. All in one. B - Received in formalin labeled "esophageal biopsy, R/O Beltre" and consists of fragments of tissue, 0.1 x 0.1 x 0.1 cm. All in one. C - Received in formalin labeled "colon polyps" and consists of fragments of tissue, 0.2 x 0.1 x 0.1 cm. All in one. -OA 04/03/2021 - 1050 Signed MARLIN SINGH MD 04/03/2021 1052 Procedures Date Code Description Status 02/09/2021 84228 Office/Outpatient Established Mo d MDM 30-39 Min Completed 02/09/2021 72599 Office/Outpatient New Moderate M DM 45-59 Minutes Completed 02/09/2021 09937 Spirometry Completed Medical Devices Description No Information Available Encounters Type Date Location Provider Dx Diagnosis Office Visit 02/09/2021 12:45p [facility] Gastroenterology Pra ctice Marjorie Christopher, [facility] Z12.11 Encounter for screening for malignant neoplasm of colon Z86.010 Personal history of colonic polyps K21.9 Gastro-esophageal reflux dis ease without esophagitis R13.10 Dysphagia, unspecified Office Visit 02/09/2021 11:00a [facility] Pulmonary/Thoracic K Christine pandey M.D. J47.9 Bronchiectasis, uncomplicate d J45.40 Moderate persistent asthma, uncomplicated R09.82 Postnasal drip Z87.891 Personal history of nicotine dependence Assessments Date Code Description Provider 04/14/2021 R05.9 Cough, unspecified Marjorie Pablito [place]derebois, [facility] 04/14/2021 R07.0 Pain in throat Marjorie Pablito [place], [facility] 04/14/2021 K21.9 Gastro-esophageal reflux disease without esophagitis Marjorie Boone[place]opapa, [facility] 02/09/2021 Z12.11 Encounter for screening for carol gnant neoplasm of colon Marjorie Boone[place]apa, [facility] 02/09/2021 Z86.010 Personal history of colonic poly ps Marjorie Pablito [place]onebois, [facility] 02/09/2021 J47.9 Bronchiectasis, uncomplicated Christine Candelario M.D. 02/09/2021 K21.9 Gastro-esophageal reflux disease without esophagitis Marjorie A [place]ol[place], [facility] 02/09/2021 R13.10 Dysphagia, unspecified Marjorie A Yinalebois, [facility] 02/09/2021 J45.40 Moderate persistent asthma, unco mplicated Christine Wilburn M.D. 02/09/2021 R09.82 Postnasal drip Christine Wilburn M.D. 02/09/2021 Z87.891 Personal history of nicotine dep Christine Burt M.D. Plan of Treatment Future Appointment(s):* 08/11/2021 2:30 pm - Christine Wilburn M.D. at [facility] Pulmonary/Thoracic 04/14/2021 - Marjorie Christopher, [facility]* R05.9 Cough, unspecified * R07.0 Pain in throat * K21.9 Gastro-esophageal reflux disease without esophagitis * * Follow up:* 3 months, sooner if needed (f/u cough, throat irritation, GERD) Functional Status Description No Information Available Mental Status Description No Information Available Referrals Description No Information Available
--- OUTSIDE RECORDS SUMMARY | 2021-04-27 06:52 | CCD | Continuity of Care Document ---
Author Author Julita TAVAREZ MD Organization Unknown Address [address] [place] [address] Phone [phone] Care Team Providers Care History Teacher Name Role Phone Marizol Vargas MD AUTM [phone] Carol Whitten NP AUTM [phone] Problems Active Problems Provider Date Hypertensive disorder [...] Information Available Procedures Date Code Description Status 12/14/2020 72257 Office/Outpatient Established SF MDM 10-19 Min Completed 12/12/2020 84884 Office/Outpatient Established Lo w MDM 20-29 Min Completed 12/12/2020 17790 Pessary Fitting & In sertion Of Pessary/Intravaginal Support Lia Completed 11/14/2020 25771 Office/Outpatient Established Lo w MDM 20-29 Min Completed 01/22/2020 03551173 Mammogram Completed Medical Devices Description No Information Available Encounters Type Date Location Provider Dx Diagnosis Office Visit 12/14/2020 8:30a [facility] [employer] land [employer] Maria Dolores Tavarez MD N9 5.2 Postmenopausal atrophic vaginitis R10.2 Pelvic and perineal pain N81.11 Cystocele, midline Office Visit 12/12/2020 11:00a [place] [facility] licensed land [employer] Maria Dolores Tavarez MD N9 5.2 Postmenopausal atrophic vaginitis R10.2 Pelvic and perineal pain N81.11 Cystocele, midline Office Visit 11/14/2020 2:00p [place] [facility] licensed land [employer]or Maria Dolores Tavarez MD B3 7.3 Candidiasis of vulva and vagina Assessments Date Code Description Provider 12/14/2020 N95.2 Postmenopausal atrophic vaginiti s Maria [...] am - Maria Dolores Tavarez MD at [facility] licensed land surveyor Functional Status Description No Information Available Mental Status Description No Information Available Referrals Description No Information Available
--- OUTSIDE RECORDS SUMMARY | 2021-04-27 06:52 | CCD ---
Author Author [facility] Organization [facility] Address Unknown Phone Unavailable Care Team Providers Care Case Making Machine Operator Name Role Phone Pauline Whitten Unavailable PROBLEMS Type Condition ICD9-CM Code [id number] Code Onset Dates Condition S tatus W/U Status Risk SNOMED Code Notes Problem Diverticulitis of colon (without mention of hemorrhage) K57.32 Active confirmed 315438419 Problem Symptomatic menopausal or female climacteric states N95.1 Active confirmed 58220991 Problem Cystocele, midline N81.11 Active confirmed 4 63591468 Problem Allergic rhinitis, unspecified allergic rhinitis type J30.9 Active confirmed 90476908 Problem Essential hypertension I10 Active confirmed 10730156 Problem Female cystocele N81.10 Active confirmed 252 003605 Problem Pelvic organ prolapse quantification stage 3 cystocele N81.10 Active confirmed 661153713 Problem Elbow tendonitis M77.8 Active confirmed 331 340951938 Problem Hypothyroidism, unspecified type E03.9 Active conf irmed 03869213 Problem Tinnitus, unspecified laterality H93.19 Active conf irmed 76455159 Problem Sinusitis, unspecified chronicity, unspecified location J32.9 Active confirmed 54930034 Problem Surgical menopause, symptomatic E89.41 Active confi rmed 377571842 Problem Irritable bowel syndrome with constipation K58.1 Active confirmed 081668016 Problem Epidermal cyst of vulva N90.7 Active confirmed 63036738 Problem Excessive and frequent menstruation N92.0 Acti ve confirmed 849473966 Problem Asthma with acute exacerbati on, unspecified asthma severity, unspecified whether persistent J45.901 Active confirmed 598510685 Problem Leukocytosis, unspecified D72.829 Active confirmed 741180615 Problem Renal mass N28.89 Active confirmed 657012903 Problem Vaginal prolapse N81.10 Active confirmed 398 764293 Problem Gastroesophageal reflux disease without esophagitis K21.9 Active confirmed 813289485 Problem Cystocele, unspecified N81.10 Active confirmed 588666362 Problem Mild intermittent asthma without complication J45. 20 Active confirmed 364753600 Problem Mixed hyperlipidemia E78.2 Active confirmed 545812016 Problem Bladder calculus N21.0 Active confirmed 706 63993 Problem Cystocele with incomplete uterovaginal prolapse N8 1.2 Active confirmed 849322344 Problem Unspecified urinary incontinence R32 Active conf irmed 450481737 Problem Incontinence in female R32 Active confirmed 06747875 ALLERGIES Allergen (clinical drug ingredient) Drug/Non Drug Allergy do cumented on EMR Reaction Allergy Type Onset Date Status moxifloxacin Avelox Nausea/Vomiting Drug Allergy Activ e azithromycin Zithromax([facility] Code:[address]-65) Diarrhea Drug Allerg y Active lisinopril Lisinopril([facility] Code:[address]-12) Angioedema Drug Allergy Active losartan Losartan Potassium([facility] Code:[address]-96) CHRIS i nduced angioedema Drug Allergy Active ENCOUNTERS from 1960 to 2021-04-08 Encounter Location Date Provider Diagnosis [address] [phone] [place] [address] 12 Mar, 2021 Pauline Whitten IMMUNIZATIONS Vaccine Route Administration [...] Education Language: Question Answer Notes Languages spoken: Greek Yarsanism: Question Answer Notes Yarsanism 21 Scientology Sexual Hx: Question Answer Notes Had sex [...] puffs Inhalation Once a day Active Nystatin 379587 UNIT/GM as directed Externally under breast Dailyprn [...] for diverticulitis Active PROCEDURES No Information RESULTS No Results REASON FOR VISIT pre op note MEDICAL (GENERAL) HISTORY Type Description Date Medical [...] mg 1 tablet orally Once a day Next Appt Details Provider Name:Beto Nelson, 1 11:15:00 AM, [address], , [place], [address], Provider Name:Pauline Whitten, 2020-05 2-07 01:15:00 PM, [address], , [place], [address], Insurance Providers Payer Name Payer Address Payer Phone Insured Name Patient Relati onship to Insured Coverage Start Date Coverage End Date [facility] [address] [facility] [id number] MARIAELENA GOODMAN
--- OUTSIDE RECORDS SUMMARY | 2021-04-27 06:52 | CCD | Continuity of Care Document ---
Author Author Julita TAVAREZ MD Organization Unknown Address [address] [place] [address] Phone [phone] Care Team Providers Care Gear Lapping Machine Operator Name Role Phone Marizol Vargas MD AUTM [phone] Carol Whitten NP AUTM [phone] Problems Active Problems Provider Date Hypertensive disorder [...] 144 mmHg BP Diastolic 86 mmHg Results Test Acquired Date Facility Test Result H/L Range Note Thinprep W/Reflex HR HPV If Asc-US 03/22/2021 Propa th TP Reflex HPV ASCUS Normal Normal 1 TP Reflex HPV ASCUS SEE IMAGE 1 SPECIME N PART A. Vaginal, ThinPrep Pap (Buckle Strap Drum Operator) CYTOLOGY HX-------- Other Information:Previous Pap: NEGATIVE FINAL DIAGNOSIS---- INTERPRETATION: Negative for Intraepithelial Lesion or Malignancy. SPECIMEN ADEQUACY:Satisfactory for evaluation. Procedures Date Code Description Status 03/22/2021 90479 Preventive Visit Est 40-64 Yrs C ompleted 12/14/2020 96735 Office/Outpatient Established SF MDM 10-19 Min Completed 12/12/2020 11286 Office/Outpatient Established Lo w MDM 20-29 Min Completed 12/12/2020 79673 Pessary Fitting & In sertion Of Pessary/Intravaginal Support Lia Completed 11/14/2020 26153 Office/Outpatient Established Lo w MDM 20-29 Min Completed 01/22/2020 [id number] Mammogram Completed Medical Devices Description No Information Available Encounters Type Date Location Provider Dx Diagnosis Office Visit 03/22/2021 12:00p [facility] [employer] weig[facility] Maria Dolores Tavarez MD Z0 1.419 Encntr for research and evaluation analyst exam (general) (routine) w/o abn findings Z12.4 Encounter for screening for malignant neoplasm of cervix Z12.39 Encounter for oth screening for malignant neoplasm of breast N95.2 Postmenopausal atrophic vagi nitis N81.11 Cystocele, midline Office Visit 12/14/2020 8:30a [facility] [employer] Maria Dolores Tavarez MD N9 5.2 Postmenopausal atrophic vaginitis R10.2 Pelvic and perineal pain N81.11 Cystocele, midline Office Visit 12/12/2020 11:00a [place] [facility] [employer] [facility] Maria Dolores Tavarez MD N9 5.2 Postmenopausal atrophic vaginitis R10.2 Pelvic and perineal pain N81.11 Cystocele, midline Office Visit 11/14/2020 2:00p [place] [facility] [employer] Maria Dolores Tavarez MD B3 7.3 Candidiasis [...] am - Maria Dolores 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
--- OUTSIDE RECORDS SUMMARY | 2021-04-27 06:52 | CCD ---
Author Author [facility] Organization [facility] Address Unknown Phone Unavailable Care Team Providers Care Technical Laboratory Asst Name Role Phone Beto Nelson Unavailable PROBLEMS Type Condition ICD9-CM Code [id number] Code Onset Dates Condition S tatus W/U Status Risk SNOMED Code Notes Problem Diverticulitis of colon (without mention of hemorrhage) K57.32 Active confirmed 785944625 Problem Cystocele, midline N81.11 Active confirmed 4 04150004 Problem Symptomatic menopausal or female climacteric states N95.1 Active confirmed 83562106 Problem Pelvic organ prolapse quantification stage 3 cystocele N81.10 Active confirmed 566261824 Problem Excessive and frequent menstruation N92.0 Acti ve confirmed 320762007 Problem Gastroesophageal reflux disease without esophagitis K21.9 Active confirmed 081467042 Problem Mild intermittent asthma without complication J45. 20 Active confirmed 694538301 Problem Elbow tendonitis M77.8 Active confirmed 331 955547722 Problem Hypothyroidism, unspecified type E03.9 Active conf irmed 83970281 Problem Tinnitus, unspecified laterality H93.19 Active conf irmed 69155697 Problem Sinusitis, unspecified chronicity, unspecified location J32.9 Active confirmed 76407685 Problem Surgical menopause, symptomatic E89.41 Active confi rmed 760417269 Problem Irritable bowel syndrome with constipation K58.1 Active confirmed 054869767 Problem Epidermal cyst of vulva N90.7 Active confirmed 40927531 Problem Female cystocele N81.10 Active confirmed 252 064853 Problem Asthma with acute exacerbati on, unspecified asthma severity, unspecified whether persistent J45.901 Active confirmed 579638434 Problem Incontinence in female R32 Active confirmed 23897278 Problem Essential hypertension I10 Active confirmed 65899257 Problem Unspecified urinary incontinence R32 Active conf irmed 634752540 Problem Mixed hyperlipidemia E78.2 Active confirmed 009734988 Problem Allergic rhinitis, unspecified allergic rhinitis type J30.9 Active confirmed 10959703 Problem Leukocytosis, unspecified D72.829 Active confirmed 655058108 Problem Renal mass N28.89 Active confirmed 117959925 Problem Bladder calculus N21.0 Active confirmed 706 97343 Problem Cystocele with incomplete uterovaginal prolapse N8 1.2 Active confirmed 868008680 ALLERGIES Allergen (clinical drug ingredient) Drug/Non Drug Allergy do cumented on EMR Reaction Allergy Type Onset Date Status moxifloxacin Avelox Nausea/Vomiting Drug Allergy Activ e azithromycin Zithromax([facility] Code:[address]-71) Diarrhea Drug Allerg y Active lisinopril Lisinopril([facility] Code:[address]-78) Angioedema Drug Allergy Active losartan Losartan Potassium([facility] Code:[address]-47) CHRIS i nduced angioedema Drug Allergy Active ENCOUNTERS from 1960 to 2021-02-28 Encounter Location Date Provider Diagnosis [facility] [address] [phone] [place] [address] Feb, Beto Nelson IMMUNIZATIONS Vaccine Route Administration Date Status Influenza [...] Education Language: Question Answer Notes Languages spoken: Lao Yazdanism: Question Answer Notes Yazdanism 21 Bahai Sexual Hx: Question Answer Notes Had sex [...] Notes Start Da te End Date Status Librax 5-2.5 MG 1 capsule before meals or at hs Orally four times daily as needed for intestinal spasms for 90 day(s) Active Diflucan 150 MG 1 tablet Orally Daily for 7 day(s) Oct, Not-Taking Pyridium 200 MG 1 tablet after meals Orally Three times a day, prn for 10 days Oct, Not-Taking Flonase 50 MCG/DOSE 1 spray in each nostril Nasally Once a day as nee ded Active metroNIDAZOLE 500 MG 1 tablet Orally every 8 hrs/prn for 10 day(s) prn for diverticulitis Active Bactrim DS 800-160 MG 1 tablet Orally Twice a day for 10 day(s) Nov, Not-Taking Levothroid 25 MCG 1 tablet every morning on an empty stoma ch Orally Once a day Not-Taking Nystatin 332577 UNIT/GM as directed Externally under breast Dailyprn for 30 Days September, Active Diflucan 150 MG 1 tablet Orally qday, repeat one in 3 days for 2 days Nov, Not-Taking Cipro 500 MG 1 tablet Orally every 12 hrs for 10 prn Active Diphenoxylate-Atropine 2.5-0.025 MG 1 tablet as needed Orally Four times a day for 30 days Active Pantoprazole Sodium 40 MG TAKE ONE TABLET BY MOUTH TWICE A DAY for 90 Active Atenolol 25 mg 1 tablet orally Once a day Active Ampicillin 500 MG 1 capsule 1 hour before or 2 hours after a meal Orally every 6 hrs for 14 days Oct, Not-Taking Dicyclomine HCl 10 MG 1 capsules Orally Four times a day for 30 Active Xiidra 2gtts Ophthalmic Twice a day Active Cyclobenzaprine HCl 10 MG 1 tablet at bedtime as neede d Orally Once a day for 10 day(s) Nov, Not-Taking Levothyroxine Sodium 25 MCG 1 tab orally Daily for 90 day(s) Active Amlodipine Besylate 5 MG TAKE ONE TABLET BY MOUTH EVERY DAY for 90 Active Sulfamethoxazole-Trimethoprim 800-160 MG 1 tablet 1 ho ur prior to your cystoscopy Orally Once for 1 days Oct, Not-Taking predniSONE 10 MG 3 tablets Orally Once a day for 5 day(s) Nov, Not-Taking Singulair 10 mg 1 tablet in the evening Orally Once a day for 90 Active Bacid - as directed Orally bid for 90 day(s) September, Active Nitrofurantoin Macrocrystal 100 MG 1 capsule with food or milk Orally twice daily for 5 day(s) Jul, Not-Taking Albuterol Sulfate HFA 108 (90 Base) MCG/ACT 1-2 puffs Inhalation q4hp sob/wheeze Jul, Active Qvar Active Albuterol Sulfate HFA 108 (90 Base) MCG/ACT 1 puff as needed Inhalation every 4 hrs Active Advair Diskus 500-50 MCG/DOSE 1 puff Inhalation Twice a day-CHRIS for 9 0 Active Spiriva Respimat 2.5 MCG/ACT 2 puffs Inhalation Once a day Active PROCEDURES No Information RESULTS No Results REASON FOR VISIT 03/03/2021 appt MEDICAL (GENERAL) HISTORY Type Description Date Medical [...] 12/01/2019 Surgical History Hysterectomy w/bladder lift repair Surgical History removal and repair of bladder suspension mesh 01/2020 Hospitalization History over night with surgery Goals Section No Information Health Concerns No Information MEDICAL EQUIPMENT No Information MENTAL STATUS No Information FUNCTIONAL STATUS No Information ASSESSMENTS No Information PLAN OF TREATMENT Medication Medication Name Sig Start Date Stop Date Amlodipine Besylate 5 MG TAKE ONE TABLET BY MOUTH EVERY DAY for 90 Next Appt Details Provider Name:Beto Nelson, 2020-10-0 8 01:30:00 PM, [address], , [place], [address], Provider Name:Pauline Whitten, 2020-05 01:15:00 PM, [address] , , [place], [address], Insurance Providers Payer Name Payer Address Payer Phone Insured Name Patient Relati onship to Insured Coverage Start Date Coverage End Date [facility] [address] [facility] [id number] MARIAELENA NUNEZ
--- OUTSIDE RECORDS SUMMARY | 2021-04-27 06:53 | CCD ---
Author Author [facility] Organization [facility] Address Unknown Phone Unavailable Care Team Providers Care Export Traffic Department Manager Name Role Phone Sylvie Haskins Unavailable PROBLEMS Type Condition ICD9-CM Code WEL15-ZG Code Onset Dates Condition S tatus W/U Status Risk SNOMED Code Notes Problem Diverticulitis of colon (without mention of hemorrhage) K57.32 Active confirmed 731389200 Problem Cystocele, midline N81.11 Active confirmed 4 81339671 Problem Symptomatic menopausal or female climacteric states N95.1 Active confirmed 02286536 Problem Pelvic organ prolapse quantification stage 3 cystocele N81.10 Active confirmed 311169209 Problem Excessive and frequent menstruation N92.0 Acti ve confirmed 545766432 Problem Gastroesophageal reflux disease without esophagitis K21.9 Active confirmed 199425313 Problem Mild intermittent asthma without complication J45. 20 Active confirmed 799325760 Problem Elbow tendonitis M77.8 Active confirmed 331 860294563 Problem Hypothyroidism, unspecified type E03.9 Active conf irmed 41881486 Problem Tinnitus, unspecified laterality H93.19 Active conf irmed 29093305 Problem Sinusitis, unspecified chronicity, unspecified location J32.9 Active confirmed 27340408 Problem Surgical menopause, symptomatic E89.41 Active confi rmed 286145798 Problem Irritable bowel syndrome with constipation K58.1 Active confirmed 159711117 Problem Epidermal cyst of vulva N90.7 Active confirmed 15039694 Problem Female cystocele N81.10 Active confirmed 252 002527 Problem Asthma with acute exacerbati on, unspecified asthma severity, unspecified whether persistent J45.901 Active confirmed 542101435 Problem Incontinence in female R32 Active confirmed 57188859 Problem Essential hypertension I10 Active confirmed 66731384 Problem Unspecified urinary incontinence R32 Active conf irmed 537159621 Problem Mixed hyperlipidemia E78.2 Active confirmed 512134370 Problem Allergic rhinitis, unspecified allergic rhinitis type J30.9 Active confirmed 90347288 Problem Leukocytosis, unspecified D72.829 Active confirmed 580271855 Problem Renal mass N28.89 Active confirmed 400731058 Problem Bladder calculus N21.0 Active confirmed 706 47037 Problem Cystocele with incomplete uterovaginal prolapse N8 1.2 Active confirmed 378031244 ALLERGIES Allergen (clinical drug ingredient) Drug/Non Drug Allergy do cumented on EMR Reaction Allergy Type Onset Date Status moxifloxacin Avelox Nausea/Vomiting Drug Allergy Activ e azithromycin Zithromax([facility] Code:[address]-13) Diarrhea Drug Allerg y Active lisinopril Lisinopril([facility] Code:[address]-04) Angioedema Drug Allergy Active losartan Losartan Potassium([facility] Code:[address]-52) CHRIS i nduced angioedema Drug Allergy Active ENCOUNTERS from 1962 to 2021-02-08 Encounter Location Date Provider Diagnosis [facility] [address] [phone] [place] [address] 09 Jan, 2021 Sylvie Haskins Dysuria R30.0 ; Cystocele with incomplet e uterovaginal prolapse N81.2 ; Unspecified urinary incontinence R32 and Incontinence in female R32 IMMUNIZATIONS Vaccine Route Administration Date Status Influenza [...] Education Language: Question Answer Notes Languages spoken: Bruneian Episcopalian: Question Answer Notes Episcopalian 21 Yarsani Sexual Hx: Question Answer Notes Had sex [...] FOR REFERRAL No Information VITAL SIGNS Weight 180 lbs Jan, Weight-kg 81.65 kg Jan, Height 64 in Jan, BMI 30.89 kg/m2 Jan, Heart Rate 85 /min Jan, Respiratory Rate 17 /min Jan, Temperature 98.7 degrees Fahrenheit Jan, Oximetry 99 Jan, Blood pressure systolic 122 mm Hg Jan, Blood pressure diastolic 78 mm Hg Jan, MEDICATIONS Medication SIG (Take, Route, Frequency, Duration) Notes Start Da te End Date Status Cyclobenzaprine HCl 10 MG 1 tablet at bedtime as neede d Orally Once a day for 10 day(s) Nov, Not-Taking Pantoprazole Sodium 40 MG TAKE ONE TABLET BY MOUTH TWICE A DAY for 90 Active Xiidra 2gtts Ophthalmic Twice a day Active Diphenoxylate-Atropine 2.5-0.025 MG 1 tablet as needed Orally Four times a day for 30 days Active Bactrim DS 800-160 MG 1 tablet Orally Twice a day for 10 day(s) Nov, Not-Taking predniSONE 10 MG 3 tablets Orally Once a day for 5 day(s) Nov, Not-Taking Nystatin 346446 UNIT/GM as directed Externally under breast Dailyprn for 30 Days September, Active Diflucan 150 MG 1 tablet Orally qday, repeat one in 3 days for 2 days Nov, Not-Taking Albuterol Sulfate HFA 108 (90 Base) MCG/ACT 1 puff as needed Inhalation every 4 hrs Active Flonase 50 MCG/DOSE 1 spray in each nostril Nasally Once a day as nee ded Active Spiriva Respimat 2.5 MCG/ACT 2 puffs Inhalation Once a day Active Qvar Active Pyridium 200 MG 1 tablet after meals Orally Three times a day, prn for 10 days Oct, Not-Taking Bacid - as directed Orally bid for 90 day(s) September, Active Nitrofurantoin Macrocrystal 100 MG 1 capsule with food or milk Orally twice daily for 5 day(s) Jul, Not-Taking Sulfamethoxazole-Trimethoprim 800-160 MG 1 tablet 1 ho ur prior to your cystoscopy Orally Once for 1 days Oct, Not-Taking Librax 5-2.5 MG 1 capsule before meals or at hs Orally four times daily as needed for intestinal spasms for 90 day(s) Active Atenolol 25 mg 1 tablet orally Once a day Active Cipro 500 MG 1 tablet Orally every 12 hrs for 10 prn Active Diflucan 150 MG 1 tablet Orally Daily for 7 day(s) Oct, Not-Taking Levothroid 25 MCG 1 tablet every morning on an empty stoma ch Orally Once a day Not-Taking Amlodipine Besylate 5 MG 1 tablet Orally Once a day Active metroNIDAZOLE 500 MG 1 tablet Orally every 8 hrs/prn for 10 day(s) prn for diverticulitis Active Dicyclomine HCl 10 MG 1 capsules Orally Four times a day for 30 Active Advair Diskus 500-50 MCG/DOSE 1 puff Inhalation Twice a day-CHRIS for 9 0 Active Levothyroxine Sodium 25 MCG 1 tab orally Daily for 90 day(s) Active Singulair 10 mg 1 tablet in the evening Orally Once a day for 90 Active Albuterol Sulfate HFA 108 (90 Base) MCG/ACT 1-2 puffs Inhalation q4hp sob/wheeze Jul, Active Ampicillin 500 MG 1 capsule 1 hour before or 2 hours after a meal Orally every 6 hrs for 14 days Oct, Not-Taking PROCEDURES No Information RESULTS No Results REASON FOR VISIT please eval female with cystocele, recurrent UTI. MEDICAL (GENERAL) HISTORY Type Description Date Medical [...] Notes Treatment Notes Treatm ent Clinical Notes Jan, Dysuria (ICD-10 - R30.0) Plan: -Send urine for microscopic urinalysis and culture and sensitivity today -Send a vaginosis panel -Send a referral for physical therapy for the levator ani spasming and so she can rebuild her core strength since she she does not know what to do to prevent recurrence if we do fix this again -Schedule urodynamic studies and this was discussed and consent signed -Schedule cystoscopy. This also was discussed and consent signed. -Start Pyridium as needed At least 70 minutes was spent today with greater than 50% of this in [id number] consultation. This was dictated with Bia and not proofread for errors Jan, Cystocele with incomplete uterovaginal prolapse (ICD-10 - N81.2) Jan, Unspecified urinary incontinence (ICD-10 - R32) Jan, Incontinence in female (ICD-10 - R32) PLAN OF TREATMENT Treatment Notes Assessment Notes Clinical Notes Dysuria Plan:-Send urine for microscopic urinalysis and culture and sensitivity today-Send a vaginosis panel-Send a referral for physical therapy for the levator ani spasming and so she can rebuild her core strength since she she does not know what to do to prevent recurrence if we do fix this again- Schedule urodynamic studies and this was discussed and consent signed-Schedule cystoscopy. This also was discussed and consent signed.-Start Pyridium as neededAt least 70 minutes was spent today with greater than 50% of this in [id number] consultation.This was dictated with Bia and not proofread for errors Treatment Notes Test Name Order Date Reflex Urine Culture (Non-Orderable) 2021-02-02 MISCELLANEOUS TEST LAB 2021-02-02 Microscopic Only Urine (Auto) 2021-02-02 Next Appt Details UDS and Cystocopy with Dr. Jozef pappas: Provider Name:Nikki Cha, 2021-01-26 4 02:00:00 PM, [address], , [place], [address], Provider Name:Beto Nelson, 2021-02- 8 01:30:00 PM, [address], , [place], [address], Provider Name:Pauline Whitten, 2020-05 01:15:00 PM, [address] , , [place], [address], Insurance Providers Payer Name Payer Address Payer Phone Insured Name Patient Relati onship to Insured Coverage Start Date Coverage End Date [facility] [address] [facility] [id number] MARIAELENA GOODMAN
--- OUTSIDE RECORDS SUMMARY | 2021-04-27 06:53 | CCD | Continuity of Care Document ---
Author Author Julita CHRISTOPHER [facility] Organization Unknown Address [address] [place] [address], [address] [place] [address] Phone [phone] Care Team Providers Care Solar Sales Representative Name Role Phone Brisa MinorN.PErica AUTM [phone] AUTM Unavailable Pauline Whitten AUTM [phone] Problems Active Problems Provider Date Bilateral tinnitus [...] Wilburn M.D. 03/2021 Fluticasone Propionate 50mcg/Act Suspension [place] Two Sprays In Each Nostril Every Day [...] lb BMI (Body Mass Index) 32.8 kg/m2 [place] Body Weight 125 lb Weight 89.359 kg BSA (Body Surface Area) 1.97 m2 09/01/2020 11:21am BP Systolic 126 mmHg BP Diastolic 74 mmHg Heart Rate 94 /min O2 % BldC Oximetry 99 % Body Temperature 97.9 F Height 65 inches 5'5" Weight 203.25 lb BMI (Body Mass Index) 33.8 kg/m2 [place] Body Weight 125 lb Weight 92.194 kg BSA (Body Surface Area) 1.99 m2 Results Test Acquired Date Facility Test Result H/L Range Note FVL/[place] 02/09/2021 [employer] PDFReport SEE IMAGE FVC-Pred 3.48 L FVC-Pre 3.26 L FVC-%Pred-Pre 93 L FVC-LLN 2.77 L Fev1-Pred 2.70 L Fev1-Pre 2.46 L Fev1-%Pred-Pre 90 L Fev1-LLN 2.10 L Fev6-Pred 3.37 L Fev6-Pre 3.26 L Fev6-%Pred-Pre 96 L Fev6-LLN 2.66 L Bbs8zrc-Tvbe 78 % Cpp4fto-Cvq 75 % Imu0jdb-%Pred-Pre 96 % Waa9aba-AHJ 69 % Akf5ioi-Zjcp 97 % Ojk8cge-Gmi 100 % Zvi9aef-%Pred-Pre 103 % FEFMax-Pred 6.55 L/E/sec FEFMax-Pre 4.33 L/E/sec FEFMax-%Pred-Pre 66 L/E/sec FEFMax-LLN 4.78 L/E/sec Qwb6723-Hirb 2.49 L/E/sec Ppj7608-Ggo 2.05 L/E/sec Buw2553-%Pred-Pre 82 L/E/sec Mnk4575-UVW 1.21 L/E/sec ExpTime-Pre 6.51 sec Ern8etz1-Itdu 81 % Qtw2zsd1-Rao 75 % Eyv7ozs4-%Pred-Pre 93 % Uou6nrv4-VQB 72 % FVL/Phan 09/01/2020 [employer] PDFReport SEE IMAGE FVC-Pred 3.48 L FVC-Pre 3.37 L FVC-%Pred-Pre 96 L FVC-LLN 2.77 L Fev1-Pred 2.70 L Fev1-Pre 2.51 L Fev1-%Pred-Pre 92 L Fev1-LLN 2.10 L Fev6-Pred 3.37 L Fev6-Pre 3.37 L Fev6-%Pred-Pre 100 L Fev6-LLN 2.66 L Znq4kmf-Hzwm 78 % Fxj0woy-Onq 74 % Jna4wcz-%Pred-Pre 94 % Kbb4wyw-YBZ 69 % Rhu1hxx-Fhiq 97 % Gpv3dhi-Qll 100 % Ltu0jfo-%Pred-Pre 103 % FEFMax-Pred 6.55 L/E/sec FEFMax-Pre 6.14 L/E/sec FEFMax-%Pred-Pre 93 L/E/sec FEFMax-LLN 4.78 L/E/sec Uav5071-Ucqu 2.49 L/E/sec Tng2544-Utn 1.91 L/E/sec Yqv2175-%Pred-Pre 76 L/E/sec Nci4551-RYT 1.21 L/E/sec ExpTime-Pre 5.21 sec Sjl2knw1-Tjuv 81 % Gzx6poq6-Vqf 74 % Bfm1jdy2-%Pred-Pre 91 % Yts6axu9-GNQ 72 % Procedures Date Code Description Status 09/01/2020 87703 Office/Outpatient Established Mo d MDM 30-39 Min Completed 09/01/2020 90384 Spirometry Completed Medical Devices Description No Information Available Encounters Type Date Location Provider Dx Diagnosis Office Visit 09/01/2020 11:30a [facility] Pulmonary/Thoracic K Christine pandey M.D. J47.9 Bronchiectasis, uncomplicate d J45.40 Moderate persistent asthma, uncomplicated R09.82 Postnasal drip Z87.891 Personal history of nicotine dependence Assessments Date Code Description Provider 02/09/2021 Z12.11 Encounter for screening for carol gnant neoplasm of colon Marjorie Christopher, [facility] 02/09/2021 J47.9 Bronchiectasis, uncomplicated Christine Candelario M.D. 02/09/2021 Z86.010 Personal history of colonic poly ps Marjorie Wilhelmpapa, [facility] 02/09/2021 J45.40 Moderate persistent asthma, unco mplicated Christine Wilburn M.D. 02/09/2021 K21.9 Gastro-esophageal reflux disease without esophagitis Marjorie Christopher, [facility] 02/09/2021 R09.82 Postnasal drip Christine Wilburn M.D. 02/09/2021 Z87.891 Personal history of nicotine dep shadience Christine Wilburn M.D. 09/01/2020 J47.9 Bronchiectasis, uncomplicated Christine Candelario M.D. 09/01/2020 J45.40 Moderate persistent asthma, unco mplicated Christine Wilburn M.D. 09/01/2020 R09.82 Postnasal drip Christine Wilburn M.D. 09/01/2020 Z87.891 Personal history of nicotine dep Christine Burt M.D. Plan of Treatment Future Appointment(s):* 08/11/2021 2:30 pm - Christine Wilburn M.D. at [facility] Pulmonary/Thoracic 02/09/2021 - Marjorie Christopher, [facility]PA-[facility]* Z12.11 Encounter for screening for malignant neoplasm of colon * Z86.010 Personal history of colonic polyps * K21.9 Gastro-esophageal reflux disease without esophagitis * * New Medication:* Clenpiq 10-3.5-12 mg-GM -GM/160ML * Dulcolax 5 mg * New Orders:* Colonoscopy, Ordered: 02/09/21 * Comments:* Will arrange for upper endoscopy and colonoscopy. Reviewed risks and benefits of the procedures, as well as other options, with the patient. Prep for this procedure was discussed with patient, including risks and side effects associated with the prep. Patient verbalized understanding of all of the above and is in agreement to proceed. Patient will seek medical attention for any acute changes. Will monitor. * Follow up:* As scheduled, sooner if needed. Functional Status Description No Information Available Mental Status Description No Information Available Referrals Description No Information Available
--- OUTSIDE RECORDS SUMMARY | 2021-04-27 06:53 | CCD | Continuity of Care Document ---
Author Julita Alvarado M.D. Organization Unknown Address [address] [place] [address] Phone [phone] Care Team Providers Care Tool Pusher Name Role Phone Brisa MinorNQing AUTM [phone] AUTM Unavailable Pauline Whitten AUTM [phone] Problems Active Problems Provider Date Bilateral tinnitus [...] Wilburn M.D. 03/2021 Fluticasone Propionate 50mcg/Act Suspension [place] Two Sprays In Each Nostril Every Day [...] lb BMI (Body Mass Index) 32.8 kg/m2 [place] Body Weight 125 lb Weight 89.359 kg BSA (Body Surface Area) 1.97 m2 09/01/2020 11:21am BP Systolic 126 mmHg BP Diastolic 74 mmHg Heart Rate 94 /min O2 % BldC Oximetry 99 % Body Temperature 97.9 F Height 65 inches 5'5" Weight 203.25 lb BMI (Body Mass Index) 33.8 kg/m2 [place] Body Weight 125 lb Weight 92.194 kg BSA (Body Surface Area) 1.99 m2 Results Test Acquired Date Facility Test Result H/L Range Note FVL/[place] 02/09/2021 [employer] PDFReport SEE IMAGE FVC-Pred 3.48 L FVC-Pre 3.26 L FVC-%Pred-Pre 93 L FVC-LLN 2.77 L Fev1-Pred 2.70 L Fev1-Pre 2.46 L Fev1-%Pred-Pre 90 L Fev1-LLN 2.10 L Fev6-Pred 3.37 L Fev6-Pre 3.26 L Fev6-%Pred-Pre 96 L Fev6-LLN 2.66 L Utd1ycx-Srwb 78 % Bri0jqm-Zic 75 % Ike0qfu-%Pred-Pre 96 % Jqo6gxg-TVG 69 % Wgq9bls-Kyyi 97 % Bpt0hyw-Xpc 100 % Atg6axf-%Pred-Pre 103 % FEFMax-Pred 6.55 L/E/sec FEFMax-Pre 4.33 L/E/sec FEFMax-%Pred-Pre 66 L/E/sec FEFMax-LLN 4.78 L/E/sec Hke3080-Hztt 2.49 L/E/sec Ryn2220-Jap 2.05 L/E/sec Ypx9684-%Pred-Pre 82 L/E/sec Mkn8408-GVK 1.21 L/E/sec ExpTime-Pre 6.51 sec Qqi2tre1-Gmmc 81 % Xen5abg1-Upn 75 % Xeq9zul5-%Pred-Pre 93 % Rto4uee5-VIY 72 % FVL/Phan 09/01/2020 [employer] PDFReport SEE IMAGE FVC-Pred 3.48 L FVC-Pre 3.37 L FVC-%Pred-Pre 96 L FVC-LLN 2.77 L Fev1-Pred 2.70 L Fev1-Pre 2.51 L Fev1-%Pred-Pre 92 L Fev1-LLN 2.10 L Fev6-Pred 3.37 L Fev6-Pre 3.37 L Fev6-%Pred-Pre 100 L Fev6-LLN 2.66 L Rkm1khd-Mlni 78 % Ojy3zci-Olv 74 % Vab2afv-%Pred-Pre 94 % Mfx5oeb-DQL 69 % Yiy9nfm-Armc 97 % Sog4xah-Mwo 100 % Nhv3wiu-%Pred-Pre 103 % FEFMax-Pred 6.55 L/E/sec FEFMax-Pre 6.14 L/E/sec FEFMax-%Pred-Pre 93 L/E/sec FEFMax-LLN 4.78 L/E/sec Zue2821-Vyjb 2.49 L/E/sec Ykg6269-Iba 1.91 L/E/sec Fgs1938-%Pred-Pre 76 L/E/sec Shy1411-IHA 1.21 L/E/sec ExpTime-Pre 5.21 sec Kjx0ljt4-Qdzf 81 % Gux8acg7-Swu 74 % Ddf9zcs7-%Pred-Pre 91 % Lel2sro3-CIK 72 % Procedures Date Code Description Status 02/09/2021 11256 Office/Outpatient Established Mo d MDM 30-39 Min Completed 02/09/2021 45475 Spirometry Completed 09/01/2020 43435 Office/Outpatient Established Mo d MDM 30-39 Min Completed 09/01/2020 04877 Spirometry Completed Medical Devices Description No Information Available Encounters Type Date Location Provider Dx Diagnosis Office Visit 02/09/2021 11:00a [facility] Christine Ramsey M.D. J47.9 Bronchiectasis, uncomplicate d J45.40 Moderate persistent asthma, uncomplicated R09.82 Postnasal drip Z87.891 Personal history of nicotine dependence Office Visit 09/01/2020 11:30a [facility] Christine Ramsey M.D. J47.9 Bronchiectasis, uncomplicate d J45.40 Moderate persistent asthma, uncomplicated R09.82 Postnasal drip Z87.891 Personal history of nicotine dependence Assessments Date Code Description Provider 02/09/2021 Z12.11 Encounter for screening for carol gnant neoplasm of colon Marjorie Carpenter [facility] 02/09/2021 J47.9 Bronchiectasis, uncomplicated Christine Candelario M.D. 02/09/2021 Z86.010 Personal history of colonic poly ps Marjorie Carpenter [facility] 02/09/2021 J45.40 Moderate persistent asthma, unco mplicated Christine Wilburn M.D. 02/09/2021 K21.9 Gastro-esophageal reflux disease without esophagitis Marjorie Carpenter R[facility] 02/09/2021 R09.82 Postnasal drip Christine Wilburn M.D. 02/09/2021 Z87.891 Personal history of nicotine dep endence Christine Wilburn M.D. 09/01/2020 J47.9 Bronchiectasis, uncomplicated Christine Candelario M.D. 09/01/2020 J45.40 Moderate persistent asthma, unco mplicated Christine Wilburn M.D. 09/01/2020 R09.82 Postnasal drip Christine Wilburn M.D. 09/01/2020 Z87.891 Personal history of nicotine dep endence Christine Wilburn M.D. Plan of Treatment Future Appointment(s):* 08/11/2021 2:30 pm - Christine Wilburn M.D. at [facility] Pulmonary/Thoracic 02/09/2021 - Marjorie Carpenter RPA-C* Z12.11 Encounter for screening for malignant [...]
--- OUTSIDE RECORDS SUMMARY | 2021-04-27 06:53 | CCD ---
Continuity of Care Document (CCD) Created on: 02/27/2021 Julita Nunez External Reference #: [id number] : [id number] Sex: Female Author Julita Alvarado M.D. Organization Unknown Address [address] [place] [address] Phone [phone] Care Team Providers Care Reproduction Production Manager Name Role Phone Brisa MinorNQing AUTM [phone] AUTM Unavailable Pauline Whitten AUTM [phone] Problems Active Problems Provider Date Bilateral tinnitus [...] Wilburn M.D. 03/2021 Fluticasone Propionate 50mcg/Act Suspension [place] Two Sprays In Each Nostril Every Day [...] lb BMI (Body Mass Index) 32.8 kg/m2 [place] Body Weight 125 lb Weight 89.359 kg BSA (Body Surface Area) 1.97 m2 09/01/2020 11:21am BP Systolic 126 mmHg BP Diastolic 74 mmHg Heart Rate 94 /min O2 % BldC Oximetry 99 % Body Temperature 97.9 F Height 65 inches 5'5" Weight 203.25 lb BMI (Body Mass Index) 33.8 kg/m2 [place] Body Weight 125 lb Weight 92.194 kg BSA (Body Surface Area) 1.99 m2 Results Test Acquired Date Facility Test Result H/L Range Note FVL/[place] 02/09/2021 [employer] PDFReport SEE IMAGE FVC-Pred 3.48 L FVC-Pre 3.26 L FVC-%Pred-Pre 93 L FVC-LLN 2.77 L Fev1-Pred 2.70 L Fev1-Pre 2.46 L Fev1-%Pred-Pre 90 L Fev1-LLN 2.10 L Fev6-Pred 3.37 L Fev6-Pre 3.26 L Fev6-%Pred-Pre 96 L Fev6-LLN 2.66 L Dub6izh-Aocg 78 % Wgf6nyl-Koc 75 % Rgm3bch-%Pred-Pre 96 % Udf7qxv-FON 69 % Keb1lxx-Wsqt 97 % Ekn3vrc-Gtq 100 % Rhr8cpb-%Pred-Pre 103 % FEFMax-Pred 6.55 L/E/sec FEFMax-Pre 4.33 L/E/sec FEFMax-%Pred-Pre 66 L/E/sec FEFMax-LLN 4.78 L/E/sec Ovp8426-Kvyu 2.49 L/E/sec Ymp0239-Vzt 2.05 L/E/sec Mjo5474-%Pred-Pre 82 L/E/sec Day4833-RYG 1.21 L/E/sec ExpTime-Pre 6.51 sec Ywh9gji1-Twwb 81 % Qys1nnx8-Ziu 75 % Jzk0dsf4-%Pred-Pre 93 % Zsr9bfa0-DOV 72 % FVL/Phan 09/01/2020 [employer] PDFReport SEE IMAGE FVC-Pred 3.48 L FVC-Pre 3.37 L FVC-%Pred-Pre 96 L FVC-LLN 2.77 L Fev1-Pred 2.70 L Fev1-Pre 2.51 L Fev1-%Pred-Pre 92 L Fev1-LLN 2.10 L Fev6-Pred 3.37 L Fev6-Pre 3.37 L Fev6-%Pred-Pre 100 L Fev6-LLN 2.66 L Sdn5dfx-Skjk 78 % Xsu4sfe-Ina 74 % Swh7yfi-%Pred-Pre 94 % Dzy6dcg-KFF 69 % Pxc6bcd-Nckt 97 % Lly7dzr-Mau 100 % Ymn8dnp-%Pred-Pre 103 % FEFMax-Pred 6.55 L/E/sec FEFMax-Pre 6.14 L/E/sec FEFMax-%Pred-Pre 93 L/E/sec FEFMax-LLN 4.78 L/E/sec Vau0846-Sakx 2.49 L/E/sec Gng4187-Cvw 1.91 L/E/sec Lfs9744-%Pred-Pre 76 L/E/sec Qth5991-MZM 1.21 L/E/sec ExpTime-Pre 5.21 sec Osm0lxt5-Fhre 81 % Faw5xnh3-Hoq 74 % Prg7tsn7-%Pred-Pre 91 % Ial7udu4-CXJ 72 % Procedures Date Code Description Status 02/09/2021 68076 Office/Outpatient Established Mo d MDM 30-39 Min Completed 02/09/2021 25496 Spirometry Completed 09/01/2020 15821 Office/Outpatient Established Mo d MDM 30-39 Min Completed 09/01/2020 26616 Spirometry Completed Medical Devices Description No Information [...] carol gnant neoplasm of colon Marjorie Boonebopapa, [facility] 02/09/2021 Z86.010 Personal history of colonic poly ps Marjorie [place], [facility] 02/09/2021 J47.9 Bronchiectasis, uncomplicated Christine Candelario M.D. 02/09/2021 K21.9 Gastro-esophageal reflux disease without esophagitis Marjorie A [place], [facility] 02/09/2021 R13.10 Dysphagia, unspecified Marjorie A [place], [facility] 02/09/2021 J45.40 Moderate persistent asthma, unco mplicated [...] Wilburn M.D. Plan of Treatment Future Appointment(s):* 03/31/2021 7:55 am - Edi Gasca M.D. at [facility] Gastro[facility]ology [facility] * 08/11/2021 2:30 pm - Christine Wilburn M.D. at [facility] Pulmonary/Thoracic 02/09/2021 - Christine Wilburn M.D.* J47.9 [...]
--- OUTSIDE RECORDS SUMMARY | 2021-04-27 06:53 | CCD ---
Author Author [facility] Organization [facility] Address Unknown Phone Unavailable Care Team Providers Care Technical Sales Manager Name Role Phone Nikki Cha Unavailable PROBLEMS Type Condition ICD9-CM Code XWA09-QS Code Onset Dates Condition S tatus W/U Status Risk SNOMED Code Notes Problem Diverticulitis of colon (without mention of hemorrhage) K57.32 Active confirmed 733856034 Problem Cystocele, midline N81.11 Active confirmed 4 73766783 Problem Symptomatic menopausal or female climacteric states N95.1 Active confirmed 29674614 Problem Pelvic organ prolapse quantification stage 3 cystocele N81.10 Active confirmed 986084000 Problem Excessive and frequent menstruation N92.0 Acti ve confirmed 663442642 Problem Gastroesophageal reflux disease without esophagitis K21.9 Active confirmed 112818898 Problem Mild intermittent asthma without complication J45. 20 Active confirmed 198354336 Problem Elbow tendonitis M77.8 Active confirmed 331 207547264 Problem Hypothyroidism, unspecified type E03.9 Active conf irmed 12475982 Problem Tinnitus, unspecified laterality H93.19 Active conf irmed 50841023 Problem Sinusitis, unspecified chronicity, unspecified location J32.9 Active confirmed 01237606 Problem Surgical menopause, symptomatic E89.41 Active confi rmed 142949122 Problem Irritable bowel syndrome with constipation K58.1 Active confirmed 528222875 Problem Epidermal cyst of vulva N90.7 Active confirmed 42728609 Problem Female cystocele N81.10 Active confirmed 252 639562 Problem Asthma with acute exacerbati on, unspecified asthma severity, unspecified whether persistent J45.901 Active confirmed 241062056 Problem Incontinence in female R32 Active confirmed 95474290 Problem Essential hypertension I10 Active confirmed 88794748 Problem Unspecified urinary incontinence R32 Active conf irmed 956055149 Problem Mixed hyperlipidemia E78.2 Active confirmed 190477275 Problem Allergic rhinitis, unspecified allergic rhinitis type J30.9 Active confirmed 99607566 Problem Leukocytosis, unspecified D72.829 Active confirmed 843870130 Problem Renal mass N28.89 Active confirmed 874679674 Problem Bladder calculus N21.0 Active confirmed 706 83535 Problem Cystocele with incomplete uterovaginal prolapse N8 1.2 Active confirmed 696741314 ALLERGIES Allergen (clinical drug ingredient) Drug/Non Drug Allergy do cumented on EMR Reaction Allergy Type Onset Date Status moxifloxacin Avelox Nausea/Vomiting Drug Allergy Activ e azithromycin Zithromax([facility] Code:[address]-66) Diarrhea Drug Allerg y Active lisinopril Lisinopril([facility] Code:[address]-20) Angioedema Drug Allergy Active losartan Losartan Potassium([facility] Code:[address]-17) CHRIS i nduced angioedema Drug Allergy Active ENCOUNTERS from 1960 to 2021-02-20 Encounter Location Date Provider Diagnosis [facility] Urology [address] [phone] [place] [address] 24 Jan, 2021 Nikki Recomayra Urinary frequency R35.0 and Nocturia R35 .1 IMMUNIZATIONS Vaccine Route Administration Date Status Influenza [...] Education Language: Question Answer Notes Languages spoken: Icelandic Tenriism: Question Answer Notes Tenriism 21 Anabaptism Sexual Hx: Question Answer Notes Had sex [...] Jan, BMI 30.89 kg/m2 Jan, Heart Rate 75 /min Jan, Respiratory Rate 17 /min Jan, Temperature 97.7 degrees Fahrenheit Jan, Oximetry 98 Jan, Blood pressure systolic 118 mm Hg Jan, Blood pressure diastolic 74 mm Hg Jan, MEDICATIONS Medication SIG (Take, [...] ch Orally Once a day Not-Taking Nystatin 625386 UNIT/GM as directed Externally under breast Dailyprn [...] 90 day(s) Active Amlodipine Besylate 5 MG 1 tablet Orally Once a day Active Sulfamethoxazole-Trimethoprim 800-160 MG 1 tablet 1 [...] Information RESULTS No Results REASON FOR VISIT [facility] (GENERAL) HISTORY Type Description Date Medical [...] Treatment Notes Treatm ent Clinical Notes Jan, Urinary frequency (ICD-10 - R35.0) Jan, Nocturia (ICD-10 - R35.1) PLAN OF TREATMENT Next Appt Details Provider Name:Beto Nelson, 2021-02- 8 01:30:00 PM, [address], , [place], [address], Provider Name:Pauline Whitten, 2020-05 01:15:00 PM, [address] , , [place], [address], Insurance Providers Payer Name Payer Address Payer Phone Insured Name Patient Relati onship to Insured Coverage Start Date Coverage End Date [facility] [address] [facility] [id number] [phone] MARIAELENA GOODMAN
--- OUTSIDE RECORDS SUMMARY | 2021-04-27 06:54 | CCD ---
Author Author [facility] Organization [facility] Address Unknown Phone Unavailable Care Team Providers Care Dispatcher Service Or Work Name Role Phone Maring, Sarbjit PA Unavailable Unavailable Maring, Sarbjit PA Unavailable Unavailable Maring, Sarbjit PA Unavailable Unavailable Maring, Sarbjit PA Unavailable Unavailable Maring, Sarbjit PA Unavailable Unavailable Maring, Sarbjit PA Unavailable Unavailable Maring, Sarbjit PA Unavailable Unavailable Maring, Sarbjit PA Unavailable Unavailable Maring, Sarbjit PA Unavailable Unavailable Maring, Sarbjit PA Unavailable Unavailable Maring, Sarbjit PA Unavailable Unavailable Maring, Sarbjit PA Unavailable Unavailable Maring, Sarbjit PA Unavailable Unavailable Maring, Sarbjit PA Unavailable Unavailable Maring, Sarbjit PA Unavailable Unavailable Maring, Sarbjit PA Unavailable Unavailable Christine Wilburn MD Unavailable Unavailable Christine Wilburn MD Unavailable Unavailable Chritsine Wilburn MD Unavailable Unavailable Christine Wilburn MD Unavailable Unavailable Christine Wilburn MD Unavailable Unavailable Christine Wilburn MD Unavailable Unavailable Christine Wilburn MD Unavailable Unavailable Christine Wilburn MD Unavailable Unavailable Christine Wilburn MD Unavailable Unavailable Christine Wilburn MD Unavailable Unavailable Christine Wilburn MD Unavailable Unavailable Christine Wilburn MD Unavailable Unavailable Christine Wilburn MD Unavailable Unavailable CsomoChristine ceasr MD Unavailable Unavailable CosmoChristine cesar MD Unavailable Unavailable CosmoChristine MD Unavailable Unavailable CosmoChristine cesar MD Unavailable Unavailable CosmoChristine cesar MD Unavailable Unavailable CosmoChristine cesar MD Unavailable Unavailable CosmoChristine cesar MD Unavailable Unavailable CosmoChristine cesar MD Unavailable Unavailable CosmoChristine cesar MD Unavailable Unavailable CosmoChristine cesar MD Unavailable Unavailable CosmoChristine cesar MD Unavailable Unavailable CosmoChristine cesar MD Unavailable Unavailable CosmoChristine cesar MD Unavailable Unavailable CosmoChristine cesar MD Unavailable Unavailable CosmoChristine cesar MD Unavailable Unavailable CosmoChristine cesar MD Unavailable Unavailable CosmoChristine cesar MD Unavailable Unavailable Charlebois, A Marjorie RPA C Unavailable Unavailable Charlebois, A Marjorie RPA C Unavailable Unavailable Charlebois, A Marjorie RPA C Unavailable Unavailable Charlebois, A Marjorie RPA C Unavailable Unavailable Charlebois, A Marjorie RPA C Unavailable Unavailable Charlebois, A Marjorie RPA C Unavailable Unavailable Charlebois, A Marjorie RPA C Unavailable Unavailable Charlebois, A Marjorie RPA C Unavailable Unavailable Charlebois, A Marjorie RPA C Unavailable Unavailable Charlebois, A Marjorie RPA C Unavailable Unavailable Charlebois, A Marjorie RPA C Unavailable Unavailable Charlebois, A Marjorie RPA C Unavailable Unavailable Charlebois, A Marjorie RPA C Unavailable Unavailable Charlebois, A Marjorie RPA C Unavailable Unavailable Charlebois, A Marjorie RPA C Unavailable Unavailable Charlebois, A Marjorie RPA C Unavailable Unavailable Charlebois, A Marjorie RPA C Unavailable Unavailable Charlebois, A Marjorie RPA C Unavailable Unavailable Charlebois, A Marjorie RPA C Unavailable Unavailable Charlebois, A Marjorie RPA C Unavailable Unavailable Charlebois, A Marjorie RPA C Unavailable Unavailable Charlebois, A Marjorie RPA C Unavailable Unavailable Charlebois, A Marjorie RPA C Unavailable Unavailable Charlebois, A Marjorie RPA C Unavailable Unavailable Charlebois, A Marjorie RPA C Unavailable Unavailable Charlebois, A Marjorie RPA C Unavailable Unavailable Charlebois, A Marjorie RPA C Unavailable Unavailable Charlebois, A Marjorie RPA C Unavailable Unavailable Charlebois, A Marjorie RPA C Unavailable Unavailable Charlebois, A Marjorie RPA C Unavailable Unavailable Charlebois, A Marjorie RPA C Unavailable Unavailable Charlebois, A Marjorie RPA C Unavailable Unavailable Charlebois, A Marjorie RPA C Unavailable Unavailable TAVAREZ, Albin ZAVALA MD Unavailable Unavailable TAVAREZ, L LUCAS MONSON Unavailable Unavailable TAVAREZ, Albin ZAVALA MD Unavailable Unavailable TAVAREZ, L LUCAS MONSON Unavailable Unavailable TAVAREZ, L LUCAS MONSON Unavailable Unavailable TAVAREZ, L LUCAS MONSON Unavailable Unavailable TAVAREZ, lAbin ZAVALA MD Unavailable Unavailable TAVAREZ, L LUCAS MONSON Unavailable Unavailable TAVAREZ, L LUCAS MONSON Unavailable Unavailable TAVAREZ, L LUCAS MONSON Unavailable Unavailable TAVAREZ, L LUCAS MONSON Unavailable Unavailable TAVAREZ, L LUCAS MONSON Unavailable Unavailable TAVAREZ, L LUCAS MONSON Unavailable Unavailable TAVAREZ, L LUCAS MONSON Unavailable Unavailable TAVAREZ, L LUCAS MONSON Unavailable Unavailable TAVAREZ, L LUCAS MONSON Unavailable Unavailable TAVAREZ, L LUCAS MONSON Unavailable Unavailable TAVAREZ, L LUCAS MONSON Unavailable Unavailable TAVAREZ, L LUCAS MONSON Unavailable Unavailable TAVAREZ, L LUCAS MONSON Unavailable Unavailable TAVAREZ, L LUCAS MONSON Unavailable Unavailable TAVAREZ, L LUCAS MONSON Unavailable Unavailable TAVAREZ, L LUCAS MONSON Unavailable Unavailable TAVAREZ, L LUCAS MONSON Unavailable Unavailable TAVAREZ, L LUCAS MONSON Unavailable Unavailable TAVAREZ, L LUCAS MONSON Unavailable Unavailable TAVAREZ, L LUCAS MONSON Unavailable Unavailable TAVAREZ, L LUCAS MONSON Unavailable Unavailable TAVAREZ, L LUCAS MONSON Unavailable Unavailable TAVAREZ, L LUCAS MONSON Unavailable Unavailable TAVAREZ, L LUCAS MONSON Unavailable Unavailable TAVAREZ, L LUCAS MONSON Unavailable Unavailable TAVAREZ, L LUCAS MONSON Unavailable Unavailable TAVAREZ, L LUCAS MONSON Unavailable Unavailable TAVAREZ, L LUCAS MONSON Unavailable Unavailable TAVAREZ, L LUCAS MONSON Unavailable Unavailable TAVAREZ, L LUCAS MONSON Unavailable Unavailable TAVAREZ, L LUCAS MONSON Unavailable Unavailable TAVAREZ, L LUCAS MONSON Unavailable Unavailable TAVAREZ, L LUCAS MONSON Unavailable Unavailable TAVAREZ, L LUCAS MONSON Unavailable Unavailable TAVAREZ, Albin ZAVALA MD Unavailable Unavailable TAVAREZ, L LUCAS MONSON Unavailable Unavailable TAVAREZ, L LUCAS MONSON Unavailable Unavailable TAVAREZ, Albin ZAVALA MD Unavailable Unavailable Meet GREENE MD Unavailable Unavailable Meet GREENE MD Unavailable Unavailable Meet GREENE MD Unavailable Unavailable Meet GREENE MD Unavailable Unavailable Meet GREENE MD Unavailable Unavailable Meet GREENE MD Unavailable Unavailable Mete GREENE MD Unavailable Unavailable Meet GREENE MD Unavailable Unavailable Meet GREENE MD Unavailable Unavailable Meet GREENE MD Unavailable Unavailable Meet GREENE MD Unavailable Unavailable Meet GREENE MD Unavailable Unavailable Meet GREENE MD Unavailable Unavailable Meet GREENE MD Unavailable Unavailable Meet GREENE MD Unavailable Unavailable Meet GREENE MD Unavailable Unavailable Meet GREENE MD Unavailable Unavailable Meet GREENE MD Unavailable Unavailable Meet GREENE MD Unavailable Unavailable Meet GREENE MD Unavailable Unavailable Meet GREENE MD Unavailable Unavailable Meet GREENE MD Unavailable Unavailable Meet GREENE MD Unavailable Unavailable Meet GREENE MD Unavailable Unavailable Meet GREENE MD Unavailable Unavailable Meet GREENE MD Unavailable Unavailable Meet GREENE MD Unavailable Unavailable Meet GREENE MD Unavailable Unavailable Meet GREENE MD Unavailable Unavailable Meet GREENE MD Unavailable Unavailable Meet GREENE MD Unavailable Unavailable Meet GREENE MD Unavailable Unavailable Meet GREENE MD Unavailable Unavailable Meet GREENE MD Unavailable Unavailable Meet GREENE MD Unavailable Unavailable Meet GREENE MD Unavailable Unavailable Meet GREENE MD Unavailable Unavailable Meet GREENE MD Unavailable Unavailable Meet GREENE MD Unavailable Unavailable Meet GREENE MD Unavailable Unavailable Meet GREENE MD Unavailable Unavailable Meet GREENE MD Unavailable Unavailable Meet GREENE MD Unavailable Unavailable Meet GREENE MD Unavailable Unavailable Meet GREENE MD Unavailable Unavailable Meet GREENE MD Unavailable Unavailable Meet GREENE MD Unavailable Unavailable Meet GREENE MD Unavailable Unavailable Meet GREENE MD Unavailable Unavailable Meet GREENE MD Unavailable Unavailable Meet GREENE MD Unavailable Unavailable Meet GREENE MD Unavailable Unavailable Meet GREENE MD Unavailable Unavailable Meet GREENE MD Unavailable Unavailable Meet GREENE MD Unavailable Unavailable Meet GREENE MD Unavailable Unavailable Meet GREENE MD Unavailable Unavailable Re-disclosure Warning The records that you are about to access may contain information from federally-assisted alcohol or drug abuse programs. If such information is present, then the following federally mandated warning applies: This information has been disclosed to you from records protected by federal confidentiality rules (42 CFR part 2). The federal rules prohibit you from making any further disclosure of this information unless further disclosure is expressly permitted by the written consent of the person to whom it pertains or as otherwise permitted by 42 CFR part 2. A general authorization for the release of medical or other information is NOT sufficient for this purpose. The Federal rules restrict any use of the information to criminally investigate or prosecute any alcohol or drug abuse patient.The records that you are about to access may contain highly sensitive health information, the redisclosure of which is protected by Article 27-F of the [facility] Public Health law. If you continue you may have access to information: Regarding HIV / AIDS; Provided by facilities licensed or operated by the [facility] Office of Mental Health; or Provided by the [facility] Office for People With Developmental Disabilities. If such information is present, then the following [facility] mandated warning applies: This information has been disclosed to you from confidential records which are protected by state law. State law prohibits you from making any further disclosure of this information without the specific written consent of the person to whom it pertains, or as otherwise permitted by law. Any unauthorized further disclosure in violation of state law may result in a fine or fdc sentence or both. A general authorization for the release of medical or other information is NOT sufficient authorization for further disc losure. Family History Family Member Name Family Member Gender Family Member Status Date o f Status Description Data Source(s) Unknown Unknown Problem [facility] ([facility]) Unknown Unknown Problem [facility] ([facility]) Unknown Unknown Problem [facility] ([facility]) father and brother Encounters Encounter Providers Location Date Indications Data Source(s ) Unknown [address] [facility] [address] 04/11/2021 12:00:00 AM EST eCW1 ([facility]) Outpatient Attender: MELANIE GREENE MD [id number] 04/10/2021 01:00:59 PM [facility] Unknown [address] [facility] [address] 04/07/2021 12:00:00 AM EST eCW1 [facility]) Outpatient Attender: MELANIE GREENE MD 04/06/2021 12:00:00 AM E [facility] Outpatient [address] [facility] [address] 03/30/2021 12:00:00 AM EDT eCW1 ([facility]) Outpatient Attender: LUCAS TAVAREZ MD [facility] 12:00:00 PM EDT [facility] ([facility]) Outpatient [address] [facility] [address] 03/14/2021 12:00:00 AM EDT eCW1 ([facility]) Unknown [address] [facility] [address] 03/14/2021 12:00:00 AM EDT eCW1 ([facility]) Unknown [address] [facility] [address] 03/14/2021 12:00:00 AM EDT eCW1 ([facility]) Unknown [address] [facility] [address] 03/10/2021 12:00:00 AM EDT eCW1 ([facility]) (Cysto1) Urology [address] [place] [address] 03/03/2021 12:00:00 AM EDT eCW1 ([facility]) Unknown [address] [facility] [address] 02/28/2021 12:00:00 AM EDT eCW1 [facility]) Outpatient [address] [facility] [address] 02/17/2021 12:00:00 AM EDT eCW1 [facility]) Outpatient Attender: Marjorie Alcantara/Patricia/Pablito jordan/Reindl 02/09/2021 12:45:00 PM EDT MEDENT ([facility]) Outpatient Attender: Christine Alcantara/aPtricia/Joe/Jomar ackerman 02/09/2021 11:00:00 AM EDT MEDENT ([facility]) Out[place] [address] [facility] [address] 02/02/2021 12:00:00 AM EDT [facility]CW1 [facility] [place] [address] [facility] [address] 12/28/2020 12:00:00 AM EDT [facility]CW1 [facility] [place] [address] [facility] [address] 12/23/2020 12:00:00 AM EDT eCW1 [facility] [place] [address] [facility] [address] 12/21/2020 12:00:00 AM EDT eCW1 [facility]) Outpatient Attender: LUCAS [facility] 08:30:00 AM EDT MED[facility] ([facility]) Outpatient Attender: LUCAS [facility] 11:00:00 AM EDT [facility] ([facility]) Unknown [address] [facility] [address] 12/12/2020 12:00:00 AM EDT [facility]CW[facility] [address] [facility] [address] 12/06/2020 12:00:00 AM EDT [facility]CW1 [facility] Unknown [address] [facility] [place] [address] 12/06/2020 12:00:00 AM EDT [facility]CW1 [facility] [place] [address] [facility] [address] 12/02/2020 12:00:00 AM EDT [facility]CW1 [facility]) [place] [address] [facility] [address] 11/29/2020 12:00:00 AM EDT eCW1 ([facility]) Outpatient Attender: Sarbjit ROMANO 11/20/19 03:22:38 PM EDT - 11/19/2020 04:18:52 PM EDT [facility] ([facility] ) Outpatient Attender: LUCAS TAVAREZ MD [facility] 02:00:00 PM EDT [facility] ([facility]) Outpatient [address] [facility] [address] 10/25/2020 12:00:00 AM EDT eCW1 ([facility]) Unknown [address] [facility] [address] 10/17/2020 12:00:00 AM EDT eCW1 ([facility]) Outpatient Attender: LUCAS TAVAREZ MD [facility] 02:00:00 PM EDT [facility] ([facility]) Outpatient Attender: Christine Alcantara/Patricia/Joe/Jomar ndl 09/01/2020 11:30:00 AM EDT [facility] ([facility] Unknown [address] [facility] [address] 08/31/2020 12:00:00 AM EDT eCW1 ([facility]) Outpatient Attender: LUCAS TAVAREZ MD [facility] 01:45:00 PM EST [facility] ([facility]) Outpatient [address] [facility] [address] 04/28/2020 12:00:00 AM EST eCW1 ([facility]) Unknown [address] [facility] [address] 04/25/2020 12:00:00 AM EST eCW1 ([facility]) Outpatient Attender: Christine Alcantara/Patricia/Joe/Jomar ndl 03/24/2020 10:30:00 AM EDT [facility] ([facility]) Office Visit Attender: LUCAS [facility] laboratory manager 02:00:00 PM EDT KELLY ([facility]) Immunizations Vaccine Date Status Description Data Source(s) COVID-19 VACCINE Pfizer 08/26/2020 12:00:00 AM EDT completed [facility] Vaccine Series Complete: YESThis Data wa s Submitted to [facility] Via [employer] COVID-19 VACCINE Pfizer 08/05/2020 12:00:00 AM EST completed [facility] Vaccine Series Complete: NOThis Data was Submitted to [facility] [employer] Medications Medication Brand Name Start Date Product Form Dose Route Admi nistrative Instructions Pharmacy Instructions Status Indications Reaction Description Data Source(s) 25 mg 04/11/2021 12:00:00 AM EST tablet 90 TAKE ONE TABLET BY MOUTH EVERY DAY TAKE ONE TABLET BY MOUTH EVERY DAY SOLD: 04/14/2021 [facility] 50 mcg/actuation 04/06/2021 12:00:00 AM EST spray,suspension 16 SPRAY 2 SPRAYS IN EACH NOSTRIL ONCE DAILY SPRAY 2 SPRAYS IN EACH NOSTRIL ONCE DAILY SOLD: 04/08/2021 [facility] Codeine Phosphate 2 MG/ML / Guaifenesin 20 MG/ML Oral Solution guaiFENesin- Codeine 100-10 MG/5ML guaiFENesin-Codeine 100-10 MG/5ML 03/14/2021 12:00:00 AM EDT 10.0 {ml_as_needed} active guai FENesin-Codeine 100-10 MG/5ML eCW1 ([facility]) Codeine Phosphate 2 MG/ML / Guaifenesin 20 MG/ML Oral Solution guaiFENesin- Codeine 100-10 MG/5ML guaiFENesin-Codeine 100-10 MG/5ML 03/14/2021 12:00:00 AM EDT 10.0 {ml_as_needed} suspended g uaiFENesin-Codeine 100-10 MG/5ML eCW1 ([facility]) Codeine Phosphate 2 MG/ML / Guaifenesin 20 MG/ML Oral Solution guaiFENesin- Codeine 100-10 MG/5ML guaiFENesin-Codeine 100-10 MG/5ML 03/14/2021 12:00:00 AM EDT 10.0 {ml_as_needed} suspended g uaiFENesin-Codeine 100-10 MG/5ML eCW1 ([facility]) Amoxicillin 875 MG / Clavulanate 125 MG Oral Tablet Amoxicillin-Pot Clavulanate 875-125 MG Amoxicillin-Pot Clavulanate 875-125 MG 03/14/2021 12:00:00 AM ED T 1.0 {tablet} active Amoxicillin-Pot Cla vulanate 875-125 MG eCW1 ([facility]) guaiFENesin-Codeine 200-10 MG/5ML UNK 03/14/2021 12:00:00 AM EDT 10.0 {ml_as_needed} active guaiFENesin-Codei ne 200-10 MG/5ML eCW1 ([facility]) Codeine Phosphate 2 MG/ML / Guaifenesin 20 MG/ML Oral Solution guaiFENesin- Codeine 100-10 MG/5ML guaiFENesin-Codeine 100-10 MG/5ML 03/14/2021 12:00:00 AM EDT 10.0 {ml_as_needed} active guai FENesin-Codeine 100-10 MG/5ML eCW1 ([facility]) guaiFENesin-Codeine 200-10 MG/5ML UNK 03/14/2021 12:00:00 AM EDT 10.0 {ml_as_needed} suspended eCW1 ([facility]) Amoxicillin 875 MG / Clavulanate 125 MG Oral Tablet Amoxicillin-Pot Clavulanate 875-125 MG Amoxicillin-Pot Clavulanate 875-125 MG 03/14/2021 12:00:00 AM ED T 1.0 {tablet} active Amoxicillin-Pot Cla vulanate 875-125 MG eCW1 ([facility]) guaiFENesin-Codeine 200-10 MG/5ML UNK 03/14/2021 12:00:00 AM EDT 10.0 {ml_as_needed} active guaiFENesin-Codei ne 200-10 MG/5ML eCW1 ([facility]) 10-100 mg/5 mL 03/14/2021 12:00:00 AM EDT liquid 300 TAKE 10ML BY MOUTH NEEDED EVERY FOUR HOURS FOR 5 DAYS TAKE 10ML BY MOUTH NEEDED EVERY FOUR HOURS FOR 5 DAYS SOLD: 03/14/2021 [facility] Codeine Phosphate 2 MG/ML / Guaifenesin 20 MG/ML Oral Solution guaiFENesin- Codeine 100-10 MG/5ML guaiFENesin-Codeine 100-10 MG/5ML 03/14/2021 12:00:00 AM EDT 10.0 {ml_as_needed} active guai FENesin-Codeine 100-10 MG/5ML eCW1 ([facility]) guaiFENesin-Codeine 200-10 MG/5ML UNK 03/14/2021 12:00:00 AM EDT 10.0 {ml_as_needed} active guaiFENesin-Codei ne 200-10 MG/5ML eCW1 ([facility]) Amoxicillin 875 MG / Clavulanate 125 MG Oral Tablet Amoxicillin-Pot Clavulanate 875-125 MG Amoxicillin-Pot Clavulanate 875-125 MG 03/14/2021 12:00:00 AM ED T 1.0 {tablet} suspended Amoxicillin-Pot C lavulanate 875-125 MG eCW1 ([facility]) guaiFENesin-Codeine 200-10 MG/5ML UNK 03/14/2021 12:00:00 AM EDT 10.0 {ml_as_needed} suspended guaiFENesin-Cod eine 200-10 MG/5ML eCW1 ([facility]) Amoxicillin 875 MG / Clavulanate 125 MG Oral Tablet 87 5-125 mg AMOXICILLIN/POTASSIUM CLAV 03/14/2021 12:00:00 AM EDT tablet 20 TAKE ONE TABLET BY MOUTH EVERY 12 HOURS FOR 10 DAYS TAKE ONE TABLET BY MOUTH EVERY 12 HOURS FOR 10 DAYS SOLD: 03/14/2021 [facility] Codeine Phosphate 2 MG/ML / Guaifenesin 20 MG/ML Oral Solution guaiFENesin- Codeine 100-10 MG/5ML guaiFENesin-Codeine 100-10 MG/5ML 03/14/2021 12:00:00 AM EDT 10.0 {ml_as_needed} suspended eCW1 ([facility]) Amoxicillin 875 MG / Clavulanate 125 MG Oral Tablet Amoxicillin-Pot Clavulanate 875-125 MG Amoxicillin-Pot Clavulanate 875-125 MG 03/14/2021 12:00:00 AM ED T 1.0 {tablet} active Amoxicillin-Pot Cla vulanate 875-125 MG eCW1 ([facility]) guaiFENesin-Codeine 200-10 MG/5ML UNK 03/14/2021 12:00:00 AM EDT 10.0 {ml_as_needed} suspended guaiFENesin-Cod eine 200-10 MG/5ML eCW1 ([facility]) Amoxicillin 875 MG / Clavulanate 125 MG Oral Tablet Amoxicillin-Pot Clavulanate 875-125 MG Amoxicillin-Pot Clavulanate 875-125 MG 03/14/2021 12:00:00 AM ED T 1.0 {tablet} suspended eCW1 ([facility]) Amoxicillin 875 MG / Clavulanate 125 MG Oral Tablet Amoxicillin-Pot Clavulanate 875-125 MG Amoxicillin-Pot Clavulanate 875-125 MG 03/14/2021 12:00:00 AM ED T 1.0 {tablet} suspended Amoxicillin-Pot C lavulanate 875-125 MG eCW1 ([facility]) 60 ACTUAT Fluticasone propionate 0.5 MG/ ACTUAT / salmeterol 0.05 MG/ACTUAT Dry Powder Inhaler [Advair] 500-50 mcg/dose FLUTICASONE PROPION/SALMETEROL 03/13/2021 12:00:00 AM EDT blister with device 180 I NHALE ONE PUFF BY MOUTH TWICE A DAY INHALE ONE PUFF BY MOUTH TWICE A DAY SOLD: 03/14/2021 [facility] 5 mg 02/27/2021 12:00:00 AM EDT tablet 90 TAKE ONE TABLET BY MOUTH EVERY DAY TAKE ONE TABLET BY MOUTH EVERY DAY SOLD: 03/02/2021 [facility] Citric Acid 75 MG/ML / Magnesium Oxide 2 1.9 MG/ML / picosulfate sodium 0.0625 MG/ML Oral Solution [Clenpiq] 10 mg-3.5 gram -12 gram/160 mL SOD PICOSULF/MAG OX/CITRIC AC 02/10/2021 12:00:00 AM EDT solution 320 T AUDRA DIRECTED PER DOCTOR'S BOWEL PREP INSTRUCTIONS TAKE DIRECTED PER DOCTOR'S BOWEL PREP INSTRUCTIONS SOLD: 02/14/2021 [facility] Clenpiq Clenpiq 02/09/2021 12:00:00 AM EDT complet ed MEDENT ([facility] ) Bisacodyl 5 MG Delayed Release Oral Tablet [Dulcolax] Dulcol ax 02/09/2021 12:00:00 AM EDT ORAL completed MED[facility] ([facility], ) 2 mg (7.5 mcg /24 hour) 01/26/2021 12:00:00 AM EDT ring [address] RING VAGINALLY EVERY [address] 1 RING VAGINALLY EVERY 3 MONTHS SOLD: 01/27/2021 [employer] [employer] pantoprazole 40 MG Delayed Release Oral Tablet PANTOPRAZOLE SODIUM 12/25/2020 12:00:00 AM EDT tablet,delayed release (DR/EC) 180 T AUDRA ONE TABLET BY MOUTH TWICE A DAY TAKE ONE TABLET BY MOUTH TWICE A DAY SOLD: 12/27/2020 [facility] Atropine Sulfate 0.025 MG / Diphenoxylat e Hydrochloride 2.5 MG Oral Tablet 2.5- 0.025 mg DIPHENOXYLATE HCL/ATROPINE 12/25/2020 12:00:00 AM EDT tablet 120 TAKE ONE TABLET BY MOUTH FOUR TIMES A DAY NEEDED MAXIMUM DAILY DOSE = 4 TABLETS TAKE ONE TABLET BY MOUTH FOUR TIMES A DAY NEEDED MAXIMUM DAILY DOSE = 4 TABLETS SOLD: 12/27/2020 [facility] Sulfamethoxazole 800 MG / Trimethoprim 1 60 MG Oral Tablet [Bactrim] Bactrim DS 800-160 MG Bactrim DS 800-160 MG 12/12/2020 12:00:00 AM EDT 1.0 {table t} suspended Bactrim DS 800-160 MG eCW1 ( [facility]) Sulfamethoxazole 800 MG / Trimethoprim 1 60 MG Oral Tablet [Bactrim] Bactrim DS 800-160 MG Bactrim DS 800-160 MG 12/12/2020 12:00:00 AM EDT 1.0 {table t} suspended Bactrim DS 800-160 MG eCW1 ( [facility]) Sulfamethoxazole 800 MG / Trimethoprim 1 60 MG Oral Tablet [Bactrim] Bactrim DS 800-160 MG Bactrim DS 800-160 MG 12/12/2020 12:00:00 AM EDT 1.0 {table t} suspended Bactrim DS 800-160 MG eCW1 ( [facility]) Sulfamethoxazole 800 MG / Trimethoprim 1 60 MG Oral Tablet [Bactrim] Bactrim DS 800-160 MG Bactrim DS 800-160 MG 12/12/2020 12:00:00 AM EDT 1.0 {table t} suspended Bactrim DS 800-160 MG eCW1 ( [facility] [facility] 800-160 mg 12/12/2020 12:00:00 AM EDT tablet 20 TAKE ONE TABLET BY MOUTH TWICE A DAY TAKE ONE TABLET BY MOUTH TWICE A DAY SOLD: 12/12/2020 [facility] Sulfamethoxazole 800 MG / Trimethoprim 1 60 MG Oral Tablet [Bactrim] Bactrim DS 800-160 MG Bactrim DS 800-160 MG 12/12/2020 12:00:00 AM EDT 1.0 {table t} suspended Bactrim DS 800-160 MG eCW1 ( [facility]) Sulfamethoxazole 800 MG / Trimethoprim 1 60 MG Oral Tablet [Bactrim] Bactrim DS 800-160 MG Bactrim DS 800-160 MG 12/12/2020 12:00:00 AM EDT 1.0 {table t} suspended Bactrim DS 800-160 MG eCW1 ( [facility]) Sulfamethoxazole 800 MG / Trimethoprim 1 60 MG Oral Tablet [Bactrim] Bactrim DS 800-160 MG Bactrim DS 800-160 MG 12/12/2020 12:00:00 AM EDT 1.0 {table t} suspended Bactrim DS 800-160 MG eCW1 ( [facility]) Sulfamethoxazole 800 MG / Trimethoprim 1 60 MG Oral Tablet [Bactrim] Bactrim DS 800-160 MG Bactrim DS 800-160 MG 12/12/2020 12:00:00 AM EDT 1.0 {table t} suspended Bactrim DS 800-160 MG eCW1 ( [facility]) Sulfamethoxazole 800 MG / Trimethoprim 1 60 MG Oral Tablet [Bactrim] Bactrim DS 800-160 MG Bactrim DS 800-160 MG 12/12/2020 12:00:00 AM EDT 1.0 {table t} active Bactrim DS 800-160 MG eCW1 ( [facility]) Sulfamethoxazole 800 MG / Trimethoprim 1 60 MG Oral Tablet [Bactrim] Bactrim DS 800-160 MG Bactrim DS 800-160 MG 12/12/2020 12:00:00 AM EDT 1.0 {table t} suspended Bactrim DS 800-160 MG eCW1 ( [facility]) Sulfamethoxazole 800 MG / Trimethoprim 1 60 MG Oral Tablet [Bactrim] Bactrim DS 800-160 MG Bactrim DS 800-160 MG 12/12/2020 12:00:00 AM EDT 1.0 {table t} suspended Bactrim DS 800-160 MG eCW1 ( [facility]) Sulfamethoxazole 800 MG / Trimethoprim 1 60 MG Oral Tablet [Bactrim] Bactrim DS 800-160 MG Bactrim DS 800-160 MG 12/12/2020 12:00:00 AM EDT 1.0 {table t} suspended eCW1 ([facility]) Sulfamethoxazole 800 MG / Trimethoprim 1 60 MG Oral Tablet [Bactrim] Bactrim DS 800-160 MG Bactrim DS 800-160 MG 12/12/2020 12:00:00 AM EDT 1.0 {table t} suspended Bactrim DS 800-160 MG eCW1 ( [facility]) Sulfamethoxazole 800 MG / Trimethoprim 1 60 MG Oral Tablet [Bactrim] Bactrim DS 800-160 MG Bactrim DS 800-160 MG 12/12/2020 12:00:00 AM EDT 1.0 {table t} suspended Bactrim DS 800-160 MG eCW1 ( [facility]) Sulfamethoxazole 800 MG / Trimethoprim 1 60 MG Oral Tablet [Bactrim] Bactrim DS 800-160 MG Bactrim DS 800-160 MG 12/12/2020 12:00:00 AM EDT 1.0 {table t} suspended Bactrim DS 800-160 MG eCW1 ( [facility]) Fluconazole 150 MG Oral Tablet [Diflucan] Diflucan 150 MG Di flucan 150 MG 12/06/2020 12:00:00 AM EDT 1.0 {tablet} suspended Diflucan 150 MG eCW1 ([facility]) Cyclobenzaprine hydrochloride 10 MG Oral Tablet Cyclob enzaprine HCl 10 MG Cyclobenzaprine HCl 10 MG 12/06/2020 12:00:00 AM EDT 1.0 {tablet_at_bedtime_as_needed} suspended Cyclobenzaprine HCl 10 MG eCW1 ([facility]) Prednisone 10 MG Oral Tablet predniSONE 10 MG predniSONE 10 MG 12/06/2020 12:00:00 AM EDT 3.0 {tablets} suspended predniSONE 10 MG eCW1 ([facility]) Cyclobenzaprine hydrochloride 10 MG Oral Tablet Cyclob enzaprine HCl 10 MG Cyclobenzaprine HCl 10 MG 12/06/2020 12:00:00 AM EDT 1.0 {tablet_at_bedtime_as_needed} suspended Cyclobenzaprine HCl 10 MG eCW1 ([facility]) Fluconazole 150 MG Oral Tablet [Diflucan] Diflucan 150 MG Di flucan 150 MG 12/06/2020 12:00:00 AM EDT 1.0 {tablet} suspended Diflucan 150 MG eCW1 ([facility]) Cyclobenzaprine hydrochloride 10 MG Oral Tablet Cyclob enzaprine HCl 10 MG Cyclobenzaprine HCl 10 MG 12/06/2020 12:00:00 AM EDT 1.0 {tablet_at_bedtime_as_needed} suspended Cyclobenzaprine HCl 10 MG eCW1 ([facility]) 150 mg 12/06/2020 12:00:00 AM EDT tablet 2 TAKE ONE TABLET BY MOUTH ONCE, THEN REPEAT IN THREE DAYS TAKE ONE TABLET BY MOUTH ONCE, THEN REPE AT IN THREE DAYS SOLD: 12/07/2020 [facility] Fluconazole 150 MG Oral Tablet [Diflucan] Diflucan 150 MG Di flucan 150 MG 12/06/2020 12:00:00 AM EDT 1.0 {tablet} suspended Diflucan 150 MG eCW1 ([facility]) Fluconazole 150 MG Oral Tablet [Diflucan] Diflucan 150 MG Di flucan 150 MG 12/06/2020 12:00:00 AM EDT 1.0 {tablet} suspended Diflucan 150 MG eCW1 ([facility]) 10 mg 12/06/2020 12:00:00 AM EDT tablet 15 TAKE THREE TABLETS BY MOUTH EVERY DAY TAKE THREE TABLETS BY MOUTH EVERY DAY SOLD: 12/07/2020 [facility] Prednisone 10 MG Oral Tablet predniSONE 10 MG predniSONE 10 MG 12/06/2020 12:00:00 AM EDT 3.0 {tablets} suspended predniSONE 10 MG eCW1 ([facility]) Prednisone 10 MG Oral Tablet predniSONE 10 MG predniSONE 10 MG 12/06/2020 12:00:00 AM EDT 3.0 {tablets} suspended eCW1 ([facility]) Fluconazole 150 MG Oral Tablet [Diflucan] Diflucan 150 MG Di flucan 150 MG 12/06/2020 12:00:00 AM EDT 1.0 {tablet} suspended Diflucan 150 MG eCW1 ([facility]) Cyclobenzaprine hydrochloride 10 MG Oral Tablet Cyclob enzaprine HCl 10 MG Cyclobenzaprine HCl 10 MG 12/06/2020 12:00:00 AM EDT 1.0 {tablet_at_bedtime_as_needed} suspended Cyclobenzaprine HCl 10 MG eCW1 ([facility]) Cyclobenzaprine hydrochloride 10 MG Oral Tablet Cyclob enzaprine HCl 10 MG Cyclobenzaprine HCl 10 MG 12/06/2020 12:00:00 AM EDT 1.0 {tablet_at_bedtime_as_needed} suspended Cyclobenzaprine HCl 10 MG eCW1 ([facility]) Prednisone 10 MG Oral Tablet predniSONE 10 MG predniSONE 10 MG 12/06/2020 12:00:00 AM EDT 3.0 {tablets} suspended predniSONE 10 MG eCW1 ([facility]) Cyclobenzaprine hydrochloride 10 MG Oral Tablet Cyclob enzaprine HCl 10 MG Cyclobenzaprine HCl 10 MG 12/06/2020 12:00:00 AM EDT 1.0 {tablet_at_bedtime_as_needed} suspended Cyclobenzaprine HCl 10 MG eCW1 ([facility]) Fluconazole 150 MG Oral Tablet [Diflucan] Diflucan 150 MG Di flucan 150 MG 12/06/2020 12:00:00 AM EDT 1.0 {tablet} suspended Diflucan 150 MG eCW1 ([facility]) Fluconazole 150 MG Oral Tablet [Diflucan] Diflucan 150 MG Di flucan 150 MG 12/06/2020 12:00:00 AM EDT 1.0 {tablet} active Diflucan 150 MG eCW1 ([facility]) Cyclobenzaprine hydrochloride 10 MG Oral Tablet Cyclob enzaprine HCl 10 MG Cyclobenzaprine HCl 10 MG 12/06/2020 12:00:00 AM EDT 1.0 {tablet_at_bedtime_as_needed} suspended eCW1 ([facility]) Fluconazole 150 MG Oral Tablet [Diflucan] Diflucan 150 MG Di flucan 150 MG 12/06/2020 12:00:00 AM EDT 1.0 {tablet} suspended Diflucan 150 MG eCW1 ([facility]) NITROFURANTOIN, MACROCRYSTALS 25 MG / Ni trofurantoin, Monohydrate 75 MG Oral Capsule [Macrobid] Macrobid 100 MG Macrobid 100 MG 12/06/2020 12:00:00 AM EDT active Macrobid 100 MG eCW1 ([facility]) Prednisone 10 MG Oral Tablet predniSONE 10 MG predniSONE 10 MG 12/06/2020 12:00:00 AM EDT 3.0 {tablets} active p redniSONE 10 MG eCW1 ([facility]) Prednisone 10 MG Oral Tablet predniSONE 10 MG predniSONE 10 MG 12/06/2020 12:00:00 AM EDT 3.0 {tablets} active p redniSONE 10 MG eCW1 ([facility]) Cyclobenzaprine hydrochloride 10 MG Oral Tablet Cyclob enzaprine HCl 10 MG Cyclobenzaprine HCl 10 MG 12/06/2020 12:00:00 AM EDT 1.0 {tablet_at_bedtime_as_needed} active Cy clobenzaprine HCl 10 MG eCW1 ([facility]) Fluconazole 150 MG Oral Tablet [Diflucan] Diflucan 150 MG Di flucan 150 MG 12/06/2020 12:00:00 AM EDT 1.0 {tablet} suspended Diflucan 150 MG eCW1 ([facility]) Fluconazole 150 MG Oral Tablet [Diflucan] Diflucan 150 MG Di flucan 150 MG 12/06/2020 12:00:00 AM EDT 1.0 {tablet} suspended Diflucan 150 MG eCW1 ([facility]) Fluconazole 150 MG Oral Tablet [Diflucan] Diflucan 150 MG Di flucan 150 MG 12/06/2020 12:00:00 AM EDT 1.0 {tablet} active Diflucan 150 MG eCW1 ([facility]) Prednisone 10 MG Oral Tablet predniSONE 10 MG predniSONE 10 MG 12/06/2020 12:00:00 AM EDT 3.0 {tablets} suspended predniSONE 10 MG eCW1 ([facility]) Cyclobenzaprine hydrochloride 10 MG Oral Tablet Cyclob enzaprine HCl 10 MG Cyclobenzaprine HCl 10 MG 12/06/2020 12:00:00 AM EDT 1.0 {tablet_at_bedtime_as_needed} active Cy clobenzaprine HCl 10 MG eCW1 ([facility]) Cyclobenzaprine hydrochloride 10 MG Oral Tablet Cyclob enzaprine HCl 10 MG Cyclobenzaprine HCl 10 MG 12/06/2020 12:00:00 AM EDT 1.0 {tablet_at_bedtime_as_needed} suspended Cyclobenzaprine HCl 10 MG eCW1 ([facility]) Prednisone 10 MG Oral Tablet predniSONE 10 MG predniSONE 10 MG 12/06/2020 12:00:00 AM EDT 3.0 {tablets} suspended predniSONE 10 MG eCW1 ([facility]) Prednisone 10 MG Oral Tablet predniSONE 10 MG predniSONE 10 MG 12/06/2020 12:00:00 AM EDT 3.0 {tablets} active p redniSONE 10 MG eCW1 ([facility]) Prednisone 10 MG Oral Tablet predniSONE 10 MG predniSONE 10 MG 12/06/2020 12:00:00 AM EDT 3.0 {tablets} suspended predniSONE 10 MG eCW1 ([facility]) Prednisone 10 MG Oral Tablet predniSONE 10 MG predniSONE 10 MG 12/06/2020 12:00:00 AM EDT 3.0 {tablets} suspended predniSONE 10 MG eCW1 ([facility]) Prednisone 10 MG Oral Tablet predniSONE 10 MG predniSONE 10 MG 12/06/2020 12:00:00 AM EDT 3.0 {tablets} suspended predniSONE 10 MG eCW1 ([facility]) Cyclobenzaprine hydrochloride 10 MG Oral Tablet Cyclob enzaprine HCl 10 MG Cyclobenzaprine HCl 10 MG 12/06/2020 12:00:00 AM EDT 1.0 {tablet_at_bedtime_as_needed} suspended Cyclobenzaprine HCl 10 MG eCW1 ([facility]) Prednisone 10 MG Oral Tablet predniSONE 10 MG predniSONE 10 MG 12/06/2020 12:00:00 AM EDT 3.0 {tablets} suspended predniSONE 10 MG eCW1 ([facility]) Fluconazole 150 MG Oral Tablet [Diflucan] Diflucan 150 MG Di flucan 150 MG 12/06/2020 12:00:00 AM EDT 1.0 {tablet} suspended Diflucan 150 MG eCW1 ([facility]) Cyclobenzaprine hydrochloride 10 MG Oral Tablet Cyclob enzaprine HCl 10 MG Cyclobenzaprine HCl 10 MG 12/06/2020 12:00:00 AM EDT 1.0 {tablet_at_bedtime_as_needed} suspended Cyclobenzaprine HCl 10 MG eCW1 ([facility]) Cyclobenzaprine hydrochloride 10 MG Oral Tablet Cyclob enzaprine HCl 10 MG Cyclobenzaprine HCl 10 MG 12/06/2020 12:00:00 AM EDT 1.0 {tablet_at_bedtime_as_needed} suspended Cyclobenzaprine HCl 10 MG eCW1 ([facility]) Prednisone 10 MG Oral Tablet predniSONE 10 MG predniSONE 10 MG 12/06/2020 12:00:00 AM EDT 3.0 {tablets} suspended predniSONE 10 MG eCW1 ([facility]) Fluconazole 150 MG Oral Tablet [Diflucan] Diflucan 150 MG Di flucan 150 MG 12/06/2020 12:00:00 AM EDT 1.0 {tablet} active Diflucan 150 MG eCW1 ([facility]) Fluconazole 150 MG Oral Tablet [Diflucan] Diflucan 150 MG Di flucan 150 MG 12/06/2020 12:00:00 AM EDT 1.0 {tablet} suspended Diflucan 150 MG eCW1 ([facility]) Cyclobenzaprine hydrochloride 10 MG Oral Tablet Cyclob enzaprine HCl 10 MG Cyclobenzaprine HCl 10 MG 12/06/2020 12:00:00 AM EDT 1.0 {tablet_at_bedtime_as_needed} active Cy clobenzaprine HCl 10 MG eCW1 ([facility]) Prednisone 10 MG Oral Tablet predniSONE 10 MG predniSONE 10 MG 12/06/2020 12:00:00 AM EDT 3.0 {tablets} suspended predniSONE 10 MG eCW1 ([facility]) Prednisone 10 MG Oral Tablet predniSONE 10 MG predniSONE 10 MG 12/06/2020 12:00:00 AM EDT 3.0 {tablets} suspended predniSONE 10 MG eCW1 ([facility]) Fluconazole 150 MG Oral Tablet [Diflucan] Diflucan 150 MG Di flucan 150 MG 12/06/2020 12:00:00 AM EDT 1.0 {tablet} suspended Diflucan 150 MG eCW1 ([facility]) Fluconazole 150 MG Oral Tablet [Diflucan] Diflucan 150 MG Di flucan 150 MG 12/06/2020 12:00:00 AM EDT 1.0 {tablet} suspended eCW1 ([facility]) NITROFURANTOIN, MACROCRYSTALS 25 MG / Ni trofurantoin, Monohydrate 75 MG Oral Capsule [Macrobid] Macrobid 100 MG Macrobid 100 MG 12/06/2020 12:00:00 AM EDT active Macrobid 100 MG eCW1 ([facility]) NITROFURANTOIN, MACROCRYSTALS 25 MG / Ni trofurantoin, Monohydrate 75 MG Oral Capsule 100 mg NITROFURANTOIN [id number]/M-[id number] 12/06/2020 12:00:00 AM EDT ca psule 10 TAKE ONE CAPSULE BY MOUTH TWICE A DAY FOR 5 DAYS TAKE ONE CAPSULE BY MOUTH TWICE A DAY FOR 5 DAYS SOLD: 12/07/2020 [facility] Cyclobenzaprine hydrochloride 10 MG Oral Tablet CYCLOBENZAPR INE HCL 12/06/2020 12:00:00 AM EDT tablet 10 TAKE ONE TABLET BY MOUTH AT BEDTIME NEEDED TAKE ONE TABLET BY MOUTH AT BEDTIME NEEDED SOLD: 12/07/2020 [facility] Cyclobenzaprine hydrochloride 10 MG Oral Tablet Cyclob enzaprine HCl 10 MG Cyclobenzaprine HCl 10 MG 12/06/2020 12:00:00 AM EDT 1.0 {tablet_at_bedtime_as_needed} suspended Cyclobenzaprine HCl 10 MG eCW1 ([facility]) Prednisone 10 MG Oral Tablet predniSONE 10 MG predniSONE 10 MG 12/06/2020 12:00:00 AM EDT 3.0 {tablets} suspended predniSONE 10 MG eCW1 ([facility]) Cyclobenzaprine hydrochloride 10 MG Oral Tablet Cyclob enzaprine HCl 10 MG Cyclobenzaprine HCl 10 MG 12/06/2020 12:00:00 AM EDT 1.0 {tablet_at_bedtime_as_needed} suspended Cyclobenzaprine HCl 10 MG eCW1 ([facility]) Fluconazole 150 MG Oral Tablet [Diflucan] Diflucan 150 MG Di flucan 150 MG 12/06/2020 12:00:00 AM EDT 1.0 {tablet} suspended Diflucan 150 MG eCW1 ([facility]) Cyclobenzaprine hydrochloride 10 MG Oral Tablet Cyclob enzaprine HCl 10 MG Cyclobenzaprine HCl 10 MG 12/06/2020 12:00:00 AM EDT 1.0 {tablet_at_bedtime_as_needed} suspended Cyclobenzaprine HCl 10 MG eCW1 ([facility]) 60 ACTUAT Fluticasone propionate 0.5 MG/ ACTUAT / salmeterol 0.05 MG/ACTUAT Dry Powder Inhaler [Advair] 500-50 mcg/dose FLUTICASONE PROPION/SALMETEROL 12/05/2020 12:00:00 AM EDT blister with device 180 I NHALE ONE PUFF BY MOUTH TWICE A DAY INHALE ONE PUFF BY MOUTH TWICE A DAY SOLD: 12/07/2020 [facility] montelukast 10 MG Oral Tablet MONTELUKAST SODIUM 11/29/2020 12:0 0:00 AM EDT tablet 90 TAKE ONE TABLET BY MOUTH EVERY E VENING TAKE ONE TABLET BY MOUTH EVERY EVENING SOLD: 02/23/2021 [facility] 25 mcg 11/29/2020 12:00:00 AM EDT tablet 90 TAKE ONE TABLET BY MOUTH EVERY DAY TAKE ONE TABLET BY MOUTH EVERY DAY SOLD: 02/23/2021 [facility] 25 mcg 11/29/2020 12:00:00 AM EDT tablet 90 TAKE ONE TABLET BY MOUTH EVERY DAY TAKE ONE TABLET BY MOUTH EVERY DAY SOLD: 11/30/2020 [facility] montelukast 10 MG Oral Tablet MONTELUKAST SODIUM 11/29/2020 12:0 0:00 AM EDT tablet 90 TAKE ONE TABLET BY MOUTH EVERY E VENING TAKE ONE TABLET BY MOUTH EVERY EVENING SOLD: 11/30/2020 [facility] 200 mg 11/20/2020 12:00:00 AM EDT tablet 6 TAKE ONE TABLET BY MOUTH THREE TIMES A DAY FOR 2 DAYS TAKE ONE TABLET BY MOUTH THREE TIMES A DAY FOR 2 DAYS SOLD: 11/20/2020 [facility] 150 mg 11/14/2020 12:00:00 AM EDT tablet 2 ONE TABLET BY MOUTH NOW AND ONE TOMORROW ONE TABLET BY MOUTH NOW AND ONE TOMORROW SOLD: 11/14/2020 [facility] Fluconazole 150 MG Oral Tablet Fluconazole 11/14/2020 12:00:00 AM EDT ORAL active MEDENT ([facility]) 150 mg 11/14/2020 12:00:00 AM EDT tablet 2 ONE TABLET BY MOUTH NOW AND ONE TOMORROW ONE TABLET BY MOUTH NOW AND ONE TOMORROW SOLD: 12/04/2020 [facility] 150 mg 11/14/2020 12:00:00 AM EDT tablet 2 ONE TABLET BY MOUTH NOW AND ONE TOMORROW ONE TABLET BY MOUTH NOW AND ONE TOMORROW SOLD: 11/30/2020 [facility] 150 mg 11/14/2020 12:00:00 AM EDT tablet 2 ONE TABLET BY MOUTH NOW AND ONE TOMORROW ONE TABLET BY MOUTH NOW AND ONE TOMORROW SOLD: 01/07/2021 [facility] 90 mcg/actuation 10/25/2020 12:00:00 AM EDT HFA aerosol inha ler 8 INHALE 1-2 PUFFS BY MOUTH EVERY 4 HOURS NEEDED FOR SHORTNESS OF BREATH / WHEEZE INHALE 1-2 PUFFS BY MOUTH EVERY 4 HOURS NEEDED FOR SHORTNESS OF BREATH / WHEEZE SOLD: 11/25/2020 [facility] 90 mcg/actuation 10/25/2020 12:00:00 AM EDT HFA aerosol inha ler 8 INHALE 1-2 PUFFS BY MOUTH EVERY 4 HOURS NEEDED FOR SHORTNESS OF BREATH / WHEEZE INHALE 1-2 PUFFS BY MOUTH EVERY 4 HOURS NEEDED FOR SHORTNESS OF BREATH / WHEEZE SOLD: 10/25/2020 [facility] 90 mcg/actuation 10/25/2020 12:00:00 AM EDT HFA aerosol inha ler 8 INHALE 1-2 PUFFS BY MOUTH EVERY 4 HOURS NEEDED FOR SHORTNESS OF BREATH / WHEEZE INHALE 1-2 PUFFS BY MOUTH EVERY 4 HOURS NEEDED FOR SHORTNESS OF BREATH / WHEEZE SOLD: 12/27/2020 [facility] 10 mg 10/25/2020 12:00:00 AM EDT capsule 120 TAKE ONE CAPSULE BY MOUTH FOUR TIMES A DAY TAKE ONE CAPSULE BY MOUTH FOUR TIMES A DAY SOLD: 12/27/2020 [facility] 90 mcg/actuation 10/25/2020 12:00:00 AM EDT HFA aerosol inha ler 8 INHALE 1-2 PUFFS BY MOUTH EVERY 4 HOURS NEEDED FOR SHORTNESS OF BREATH / WHEEZE INHALE 1-2 PUFFS BY MOUTH EVERY 4 HOURS NEEDED FOR SHORTNESS OF BREATH / WHEEZE SOLD: 01/27/2021 [facility] 10 mg 10/25/2020 12:00:00 AM EDT capsule 120 TAKE ONE CAPSULE BY MOUTH FOUR TIMES A DAY TAKE ONE CAPSULE BY MOUTH FOUR TIMES A DAY SOLD: 10/25/2020 [facility] 90 mcg/actuation 10/25/2020 12:00:00 AM EDT HFA aerosol inha ler 8 INHALE 1-2 PUFFS BY MOUTH EVERY 4 HOURS NEEDED FOR SHORTNESS OF BREATH / WHEEZE INHALE 1-2 PUFFS BY MOUTH EVERY 4 HOURS NEEDED FOR SHORTNESS OF BREATH / WHEEZE SOLD: 04/04/2021 [facility] 10 mg 10/25/2020 12:00:00 AM EDT capsule 120 TAKE ONE CAPSULE BY MOUTH FOUR TIMES A DAY TAKE ONE CAPSULE BY MOUTH FOUR TIMES A DAY SOLD: 11/25/2020 [facility] 90 mcg/actuation 10/25/2020 12:00:00 AM EDT HFA aerosol inha ler 8 INHALE 1-2 PUFFS BY MOUTH EVERY 4 HOURS NEEDED FOR SHORTNESS OF BREATH / WHEEZE INHALE 1-2 PUFFS BY MOUTH EVERY 4 HOURS NEEDED FOR SHORTNESS OF BREATH / WHEEZE SOLD: 03/02/2021 [facility] 10 mg 10/25/2020 12:00:00 AM EDT capsule 120 TAKE ONE CAPSULE BY MOUTH FOUR TIMES A DAY TAKE ONE CAPSULE BY MOUTH FOUR TIMES A DAY SOLD: 04/04/2021 [facility] 10 mg 10/25/2020 12:00:00 AM EDT capsule 120 TAKE ONE CAPSULE BY MOUTH FOUR TIMES A DAY TAKE ONE CAPSULE BY MOUTH FOUR TIMES A DAY SOLD: 03/02/2021 [facility] 10 mg 10/25/2020 12:00:00 AM EDT capsule 120 TAKE ONE CAPSULE BY MOUTH FOUR TIMES A DAY TAKE ONE CAPSULE BY MOUTH FOUR TIMES A DAY SOLD: 01/27/2021 [facility] 25 mg 10/17/2020 12:00:00 AM EDT tablet 90 TAKE ONE TABLET BY MOUTH EVERY DAY TAKE ONE TABLET BY MOUTH EVERY DAY SOLD: 01/14/2021 [facility] 25 mg 10/17/2020 12:00:00 AM EDT tablet 90 TAKE ONE TABLET BY MOUTH EVERY DAY TAKE ONE TABLET BY MOUTH EVERY DAY SOLD: 10/18/2020 [facility] 4 mg 09/06/2020 12:00:00 AM EDT tablets,dose pack 21 FOLLOW INSTRUCTIONS INDICATED ON THE BOX FOLLOW INSTRUCTIONS INDICATED ON THE BOX SOLD: 09/07/2020 [facility] 500 mg 09/06/2020 12:00:00 AM EDT tablet 21 TAKE ONE TABLET BY MOUTH THREE TIMES A DAY TAKE ONE TABLET BY MOUTH THREE TIMES A DAY SOLD: 09/07/2020 [facility] 3 % 09/02/2020 12:00:00 AM EDT solution for nebulizati on 960 INHALE ONE VIAL VIA NEBULIZER TWO TIMES A DAY TO THREE TIMES A DAY NEEDED WITH ALBUTEROL INHALE ONE VIAL VIA NEBULIZER TWO TIMES A DAY TO THREE TIMES A DAY NEEDED WITH ALBUTEROL SOLD: 09/02/2020 [facility] 2.5 mg /3 mL (0.083 %) 09/01/2020 12:00:00 AM EDT solu tion for nebulization 375 INHALE ONE VIAL VIA NEBULIZER EVERY 6 HO URS NEEDED INHALE ONE VIAL VIA NEBULIZER EVERY 6 HOURS NEEDED SOLD: 09/02/2020 [facility] 2.5 mg /3 mL (0.083 %) 09/01/2020 12:00:00 AM EDT solu tion for nebulization 375 INHALE ONE VIAL VIA NEBULIZER EVERY 6 HO URS NEEDED INHALE ONE VIAL VIA NEBULIZER EVERY 6 HOURS NEEDED SOLD: 01/05/2021 [facility] 500-50 mcg/dose 09/01/2020 12:00:00 AM EDT blister with lia ce 180 INHALE ONE PUFF BY MOUTH TWICE A DAY INHALE ONE PUFF BY MOUTH TWICE A DAY SOLD: 09/02/2020 [facility] Covid-19 vaccine, Unspecified 08/26/2020 12:00:00 AM EDT completed MEDENT ([facility]) Medication administered onsite Covid-19 vaccine, Unspecified 08/05/2020 12:00:00 AM EST completed MEDENT ([facility]) Medication administered onsite 5 % 08/04/2020 12:00:00 AM EST dropperette 60 INSTILL ONE DROP INTO BOTH EYES TWICE A DAY INSTILL ONE DROP INTO BOTH EYES TWICE A DAY SOLD: 08/04/2020 [facility] 5 % 08/04/2020 12:00:00 AM EST dropperette 60 INSTILL ONE DROP INTO BOTH EYES TWICE A DAY INSTILL ONE DROP INTO BOTH EYES TWICE A DAY SOLD: 09/02/2020 [facility] 5 % 08/04/2020 12:00:00 AM EST dropperette 60 INSTILL ONE DROP INTO BOTH EYES TWICE A DAY INSTILL ONE DROP INTO BOTH EYES TWICE A DAY SOLD: 01/05/2021 [facility] 5 % 08/04/2020 12:00:00 AM EST dropperette 60 INSTILL ONE DROP INTO BOTH EYES TWICE A DAY INSTILL ONE DROP INTO BOTH EYES TWICE A DAY SOLD: 10/01/2020 [facility] 5 % 08/04/2020 12:00:00 AM EST dropperette 60 INSTILL ONE DROP INTO BOTH EYES TWICE A DAY INSTILL ONE DROP INTO BOTH EYES TWICE A DAY SOLD: 03/12/2021 [facility] 25 mcg 08/03/2020 12:00:00 AM EST tablet 90 TAKE ONE TABLET BY MOUTH EVERY MORNING ON AN EMPTY STOMACH TAKE ONE TABLET BY MOUTH EVERY MORNING O N AN EMPTY STOMACH SOLD: 08/04/2020 [facility] pantoprazole 40 MG Delayed Release Oral Tablet PANTOPRAZOLE SODIUM 08/03/2020 12:00:00 AM EST tablet,delayed release (DR/EC) 180 T AUDRA ONE TABLET BY MOUTH TWICE A DAY TAKE ONE TABLET BY MOUTH TWICE A DAY SOLD: 08/04/2020 [facility] Atenolol 25 MG Oral Tablet ATENOLOL 07/19/2020 12:00:00 AM EST tablet 90 TAKE ONE TABLET BY MOUTH EVERY DAY TAKE ONE TABLET BY MOUTH EVERY DAY SOLD: 07/22/2020 [facility] 1.25 mcg/actuation 07/14/2020 12:00:00 AM EST mist 12 INHALE TWO PUFFS BY MOUTH EVERY DAY INHALE TWO PUFFS BY MOUTH EVERY DAY SOLD: 03/30/2021 [facility] 1.25 mcg/actuation 07/14/2020 12:00:00 AM EST mist 12 INHALE TWO PUFFS BY MOUTH EVERY DAY INHALE TWO PUFFS BY MOUTH EVERY DAY SOLD: 10/01/2020 [facility] 1.25 mcg/actuation 07/14/2020 12:00:00 AM EST mist 12 INHALE TWO PUFFS BY MOUTH EVERY DAY INHALE TWO PUFFS BY MOUTH EVERY DAY SOLD: 07/14/2020 [facility] 1.25 mcg/actuation 07/14/2020 12:00:00 AM EST mist 12 INHALE TWO PUFFS BY MOUTH EVERY DAY INHALE TWO PUFFS BY MOUTH EVERY DAY SOLD: 12/29/2020 [facility] Spiriva Respimat Spiriva Respimat 07/07/2020 12:00:00 AM EST RESPIRATORY active [facility] 0.3 % 06/24/2020 12:00:00 AM EST drops 5 INSTILL 1 DROP IN THE LEFT EYE FOUR TIMES A DAY DIRECTED INSTILL 1 DROP IN THE LEFT EYE FOUR TIME S A DAY DIRECTED SOLD: 06/24/2020 [facility] 0.05 % 06/22/2020 12:00:00 AM EST cream 15 APPLY TO BILATERAL EYE LIDS SPARINGLY TWO TIMES A DAY FOR THREE TO FIVE DAYS APPLY TO BILATERAL EYE LIDS SPARINGLY TWO TIMES A DAY FOR THREE TO FIVE DAYS SOLD: 06/24/2020 [facility] 2.5 % 06/15/2020 12:00:00 AM EST ointment 28 APPLY TO EYELIDS AND ON FACE TWO TIMES A DAY FOR 5 DAYS, THEN NEEDED APPLY TO EYELIDS AND ON FACE TWO TIMES A DAY FOR 5 DAYS, THEN NEEDED SOLD: 06/16/2020 [facility] 5 mg 06/02/2020 12:00:00 AM EST tablet 90 TAKE ONE TABLET BY MOUTH EVERY DAY TAKE ONE TABLET BY MOUTH EVERY DAY SOLD: 11/30/2020 [facility] 5 mg 06/02/2020 12:00:00 AM EST tablet 90 TAKE ONE TABLET BY MOUTH EVERY DAY TAKE ONE TABLET BY MOUTH EVERY DAY SOLD: 06/05/2020 [facility] 5 mg 06/02/2020 12:00:00 AM EST tablet 90 TAKE ONE TABLET BY MOUTH EVERY DAY TAKE ONE TABLET BY MOUTH EVERY DAY SOLD: 09/02/2020 [facility] Clindamycin 150 MG Oral Capsule CLINDAMYCIN HCL 05/31/2020 12:00 :00 AM EST capsule 21 TAKE ONE CAPSULE BY MOUTH THREE TIMES A DAY TAKE ONE CAPSULE BY MOUTH THREE TIMES A DAY SOLD: 06/02/2020 [facility] 500-50 mcg/dose 05/30/2020 12:00:00 AM EST blister with lia ce 180 INHALE ONE PUFF BY MOUTH TWICE A DAY INHALE ONE PUFF BY MOUTH TWICE A DAY SOLD: 06/02/2020 [facility] 50 mcg/actuation 05/21/2020 12:00:00 AM EST spray,suspension 16 SPRAY TWO SPRAYS IN EACH NOSTRIL EVERY DAY SPRAY TWO SPRAYS IN EACH NOSTRIL EVERY DAY SOLD: 07/01/2020 [facility] 50 mcg/actuation 05/21/2020 12:00:00 AM EST spray,suspension 16 SPRAY TWO SPRAYS IN EACH NOSTRIL EVERY DAY SPRAY TWO SPRAYS IN EACH NOSTRIL EVERY DAY SOLD: 05/27/2020 [facility] Fluticasone Propionate Fluticasone Propionate 05/21/2020 12:00:[address] active [facility] ([facility], ) Fluticasone propionate 0.05 MG/ACTUAT Metered Dose Gerald al [place] 50 mcg/actuation FLUTICASONE PROPIONATE 05/21/2020 12:00:00 AM EST spray,suspension 16 SPRAY TWO SPRAYS IN EACH NOSTRIL EVERY DAY SPRAY TWO SPRAYS IN EACH NOSTRIL EVERY DAY SOLD: 02/23/2021 [facility] 50 mcg/actuation 05/21/2020 12:00:00 AM EST spray,suspension 16 SPRAY TWO SPRAYS IN EACH NOSTRIL EVERY DAY SPRAY TWO SPRAYS IN EACH NOSTRIL EVERY DAY SOLD: 08/04/2020 [facility] 800 mg 05/14/2020 12:00:00 AM EST tablet 15 TAKE ONE TABLET BY MOUTH THREE TIMES A DAY NEEDED FOR PAIN TAKE ONE TABLET BY MOUTH THREE TIMES A D AY NEEDED FOR PAIN SOLD: 05/18/2020 [facility] 325 mg 05/14/2020 12:00:00 AM EST tablet 21 TAKE ONE TABLET BY MOUTH THREE TIMES A DAY FOR 7 DAYS IN COMBO WITH IBUPROFEN TAKE ONE TABLET BY MOUTH THREE TIMES A DAY FOR 7 DAYS IN COMBO WITH IBUPROFEN SOLD: 05/18/2020 [facility] 100,000 unit/gram 04/29/2020 12:00:00 AM EST powder 120 APPLY DAILY NEEDED UNDER BREAST DIRECTED APPLY DAILY NEEDED UNDER BREAST DIRECTED SOLD: 04/30/2020 [facility] Metronidazole 500 MG Oral Tablet METRONIDAZOLE 04/29/2020 12:0 0:00 AM EST tablet 30 TAKE ONE TABLET BY MOUTH EVERY 8 HOURS TAKE ONE TABLET BY MOUTH EVERY 8 HOURS SOLD: 02/23/2021 [facility] 500 mg 04/29/2020 12:00:00 AM EST tablet 20 TAKE ONE TABLET BY MOUTH EVERY 12 HOURS TAKE ONE TABLET BY MOUTH EVERY 12 HOURS SOLD: 02/23/2021 [facility] 150 mg 04/29/2020 12:00:00 AM EST tablet 7 TAKE ONE TABLET BT MOUTH DAILY TAKE ONE TABLET BT MOUTH DAILY SOLD: 04/30/2020 [facility] Metronidazole 500 MG Oral Tablet METRONIDAZOLE 04/29/2020 12:0 0:00 AM EST tablet 30 TAKE ONE TABLET BY MOUTH EVERY 8 HOURS TAKE ONE TABLET BY MOUTH EVERY 8 HOURS SOLD: 04/30/2020 [facility] 2.5-0.025 mg 04/29/2020 12:00:00 AM EST tablet 120 TAKE ONE TABLET BY MOUTH FOUR TIMES A DAY NEEDED MAX=4TABS/DAY TAKE ONE TABLET BY MOUTH FOUR TIMES A DAY NEEDED MAX=4TABS/DAY SOLD: 04/30/2020 [facility] 500 mg 04/29/2020 12:00:00 AM EST tablet 20 TAKE ONE TABLET BY MOUTH EVERY 12 HOURS TAKE ONE TABLET BY MOUTH EVERY 12 HOURS SOLD: 04/30/2020 [facility] 500 mg 04/26/2020 12:00:00 AM EST capsule 28 TAKE ONE CAPSULE BY MOUTH FOUR TIMES A DAY FOR 7 DAYS TAKE ONE CAPSULE BY MOUTH FOUR TIMES A DAY FOR 7 DAYS SOLD: 04/30/2020 [facility] 500 mg 04/05/2020 12:00:00 AM EST tablet 28 TAKE 1 TABLET BY MOUTH FOUR TIMES A DAY FOR 7 DAYS TAKE 1 TABLET BY MOUTH FOUR TIMES A DAY FOR 7 DAYS GITA [facility] Atenolol 25 MG Oral Tablet ATENOLOL 04/04/2020 12:00:00 AM EST tablet 90 TAKE ONE TABLET BY MOUTH EVERY DAY TAKE ONE TABLET BY MOUTH EVERY DAY SOLD: 04/05/2020 [facility] 400 mcg/actuation 03/27/2020 12:00:00 AM EDT aerosol powdr breath activated 1 INHALE ONE PUFF TWICE A DAY INHALE ONE PUFF TWICE A DAY SOLD: 020 [facility] 80 mcg/actuation 03/24/2020 12:00:00 AM EDT HFA aerosol sarah th activated 10 INHALE ONE PUFF BY MOUTH TWICE A DAY INHALE ONE PUFF BY MOUTH TWICE A DAY SOLD: 07/01/2020 [facility] . UNIT 03/24/2020 12:00:00 AM EDT Misc 2 USE A S DIRECTED USE DIRECTED SOLD: 03/25/2020 [facility] 80 mcg/actuation 03/24/2020 12:00:00 AM EDT HFA aerosol sarah th activated 10 INHALE ONE PUFF BY MOUTH TWICE A DAY INHALE ONE PUFF BY MOUTH TWICE A DAY SOLD: 05/27/2020 [facility] 80 mcg/actuation 03/24/2020 12:00:00 AM EDT HFA aerosol sarah th activated 10 INHALE ONE PUFF BY MOUTH TWICE A DAY INHALE ONE PUFF BY MOUTH TWICE A DAY SOLD: 04/24/2020 [facility] 30 ACTUAT aclidinium bromide 0.4 MG/ACTUAT Dry Powder Inhaler [Tudorza] Tudor[facility] 03/24/2020 12:00:00 AM EDT RESPIRATORY complete d [facility] ([facility], ) Nebulizer Kit/Tubing/Mouthpiece 03/24/2020 12:00:00 AM EDT active [facility] 80 mcg/actuation 03/24/2020 12:00:00 AM EDT HFA aerosol sarah th activated 10 INHALE ONE PUFF BY MOUTH TWICE A DAY INHALE ONE PUFF BY MOUTH TWICE A DAY SOLD: 03/25/2020 [facility] 500 mg 03/08/2020 12:00:00 AM EDT capsule 28 TAKE ONE CAPSULE BY MOUTH FOUR TIMES A DAY FOR 7 DAYS TAKE ONE CAPSULE BY MOUTH FOUR TIMES A DAY FOR 7 DAYS SOLD: 03/11/2020 [facility] 600 mg 03/07/2020 12:00:00 AM EDT tablet 60 TAKE ONE TABLET BY MOUTH EVERY 6 HOURS NEEDED FOR PAIN TAKE ONE TABLET BY MOUTH EVERY 6 HOURS A S NEEDED FOR PAIN SOLD: 03/11/2020 [facility] 62.5 mcg/actuation 02/11/2020 12:00:00 AM EDT blister with d evice 30 INHALE ONE PUFF BY MOUTH EVERY DAY INHALE ONE PUFF BY MOUTH EVERY DAY SOLD: 04/17/2020 [facility] 62.5 mcg/actuation 02/11/2020 12:00:00 AM EDT blister with d evice 30 INHALE ONE PUFF BY MOUTH EVERY DAY INHALE ONE PUFF BY MOUTH EVERY DAY SOLD: 03/17/2020 [facility] 25 mcg 02/03/2020 12:00:00 AM EDT tablet 90 TAKE ONE TABLET BY MOUTH EVERY MORNING ON AN EMPTY STOMACH TAKE ONE TABLET BY MOUTH EVERY MORNING O N AN EMPTY STOMACH SOLD: 05/08/2020 [facility] pantoprazole 40 MG Delayed Release Oral Tablet PANTOPRAZOLE SODIUM 02/03/2020 12:00:00 AM EDT tablet,delayed release (DR/EC) 180 T AUDRA ONE TABLET BY MOUTH TWICE A DAY TAKE ONE TABLET BY MOUTH TWICE A DAY SOLD: 05/08/2020 [facility] 50 mcg/actuation 01/19/2020 12:00:00 AM EDT spray,suspension 16 SPRAY TWO SPRAYS IN EACH NOSTRIL EVERY DAY SPRAY TWO SPRAYS IN EACH NOSTRIL EVERY DAY SOLD: 04/24/2020 [facility] 50 mcg/actuation 01/19/2020 12:00:00 AM EDT spray,suspension 16 SPRAY TWO SPRAYS IN EACH NOSTRIL EVERY DAY SPRAY TWO SPRAYS IN EACH NOSTRIL EVERY DAY SOLD: 03/25/2020 [facility] 2 mg (7.5 mcg /24 hour) 01/13/2020 12:00:00 AM EDT ring [address] 1 RING VAGINALLY EVERY [address] 1 RING VAGINALLY EVERY 3 MONTHS SOLD: 04/17/2020 [facility] 2 mg (7.5 mcg /24 hour) 01/13/2020 12:00:00 AM EDT ring [address] PLACE 1 RING VAGINALLY EVERY [address] 1 RING VAGINALLY EVERY 3 MONTHS SOLD: 10/25/2020 [facility] 2 mg (7.5 mcg /24 hour) 01/13/2020 12:00:00 AM EDT ring [address] PLACE 1 RING VAGINALLY EVERY [address] 1 RING VAGINALLY EVERY 3 MONTHS SOLD: 07/23/2020 [facility] 3 % 01/04/2020 12:00:00 AM EDT solution for nebulizati on 960 INHALE ONE VIAL VIA NEBULIZER TWO TIMES A DAY TO THREE TIMES A DAY NEEDED WITH ALBUTEROL INHALE ONE VIAL VIA NEBULIZER TWO TIMES A DAY TO THREE TIMES A DAY NEEDED WITH ALBUTEROL SOLD: 03/25/2020 [facility] 500-50 mcg/dose 12/01/2019 12:00:00 AM EDT blister with lia ce 180 INHALE ONE PUFF BY MOUTH TWICE A DAY INHALE ONE PUFF BY MOUTH TWICE A DAY SOLD: 03/01/2020 [facility] montelukast 10 MG Oral Tablet MONTELUKAST SODIUM 11/26/2019 12:0 0:00 AM EDT tablet 90 TAKE ONE TABLET BY MOUTH EVERY E VENING TAKE ONE TABLET BY MOUTH EVERY EVENING SOLD: 03/01/2020 [facility] montelukast 10 MG Oral Tablet MONTELUKAST SODIUM 11/26/2019 12:0 0:00 AM EDT tablet 90 TAKE ONE TABLET BY MOUTH EVERY E VENING TAKE ONE TABLET BY MOUTH EVERY EVENING SOLD: 06/02/2020 [facility] montelukast 10 MG Oral Tablet MONTELUKAST SODIUM 11/26/2019 12:0 0:00 AM EDT tablet 90 TAKE ONE TABLET BY MOUTH EVERY E VENING TAKE ONE TABLET BY MOUTH EVERY EVENING SOLD: 09/02/2020 [facility] 1 billion cell 10/09/2019 12:00:00 AM EDT capsule 180 TAKE ONE CAPSULE BY MOUTH TWICE A DAY DIRECTED TAKE ONE CAPSULE BY MOUTH TWICE A DAY DIRECTED SOLD: 12/07/2020 [facility] Metronidazole 500 MG Oral Tablet METRONIDAZOLE 08/31/2019 12:0 0:00 AM EDT tablet 14 TAKE ONE TABLET BY MOUTH TWICE A DAY FOR 7 DAYS TAKE ONE TABLET BY MOUTH TWICE A DAY FOR 7 DAYS SOLD: 07/22/2020 [facility] 5 mg 08/25/2019 12:00:00 AM EDT tablet 90 TAKE ONE TABLET BY MOUTH EVERY DAY TAKE ONE TABLET BY MOUTH EVERY DAY SOLD: 03/07/2020 [facility] 10 mg 08/24/2019 12:00:00 AM EDT capsule 120 TAKE ONE CAPSULE BY MOUTH FOUR TIMES A DAY TAKE ONE CAPSULE BY MOUTH FOUR TIMES A DAY SOLD: 08/04/2020 [facility] Insurance Providers Payer name Policy type / Coverage type Policy ID Covered republican ID Covered republican's relationship to dodd Policy Dodd Plan Information EXCELLUS BCBS [id number] Mckayla YLS [id number] [employer] [id number] Mckayla YLS [id number] BCBS EMPIRE LYNN DIV [id number] SP [id number] [employer] [id number] Mckayla YLS [id number] EXCELL[employer] BCBS [id number] Mckayla YLS [id number] [facility] [id number] SP [id number] EXCELLUS BCBS [id number] Mckayla YLS [id number] EXCELLUS BCBS [id number] Mckayla YLS [id number] EXCELLUS BCBS [id number] Mckayla YLS [id number] EXCELLUS BCBS [id number] Mckayla YLS [id number] BCBS EMPIRE LYNN DIV [id number] SP [id number] [facility] Commercial Insurance Co. [id number] Self [id number] [facility] Health Maintenance Organization (HMO) [id number] Self [id number] ANSI-Commercial [id number] [facility] Health Maintenance Organization ([facility]) [facility] [id number] [id number] Self [id number] [facility] [id number] ANSI-Commercial [id number] [facility] Health Maintenance Organization ([facility]) [facility] [address] [id number] Self [id number] [facility] Health Maintenance Organization ([facility]) [address] [place], [place] [id number] Self [id number] [facility] Health Maintenance Organization ([facility]) [facility] [address] [id number] Self [id number] ANSI-Commercial [id number] ANSI-Commercial [id number] ANSI-Commercial [id number] ANSI-Commercial [id number] ANSI-Commercial [id number] ANSI-Commercial [id number] ANSI-Commercial [id number] ANSI-Commercial [id number] ANSI-Commercial [id number] ANSI-Commercial [id number] ANSI-Commercial [id number] ANSI-Commercial [id number] ANSI-Commercial [id number] ANSI-Commercial [id number] BCBS EMPIRE [id number] S [id number] [facility] [id number] S [id number] ANSI-Commercial [id number] ANSI-Commercial [id number] ANSI-Commercial [id number] ANSI-Commercial [id number] ANSI-Commercial [id number] EXCELLUS BCBS PI PI ANSI-Commercial [id number] ANSI-Commercial [id number] ANSI-Commercial [id number] ANSI-Commercial [id number] ANSI-Commercial [id number] ANSI-Commercial [id number] ANSI-Commercial [id number] ANSI-Commercial [id number] ANSI-Commercial [id number] [facility] ([facility]) 8 [id number] Self [id number] ANSI-Commercial [id number] [facility] ([facility]) 8 [id number] Self [id number] [facility] ([facility]) [id number] Self [id number] [facility] O [id number] S [id number] [facility] Organization (O) [address] Self BCBS EMPIRE LYNN DIV [id number] SP [id number] [facility] [id number] SP [id number] [facility] [id number] SP [id number] BCBS [facility] LYNN DIV [id number] SP [id number] BCBS EMPIRE LYNN DIV [id number] SP [id number] [facility] [id number] S [id number] BCBS EMPIRE [id number] S [id number] [facility] O [id number] S [id number] BCBS EMPIRE LYNN DIV [id number] SP [id number] ANSI-Commercial [id number] ANSI-Commercial [id number] [facility] Health Maintenance Organization ([facility]) [id number] Self [id number] Problems, Conditions, and Diagnoses Code Display Name Description Problem Type Effective Dates Data Source(s) N81.10 Cystocele Cystocele, unspecified Problem 03/30/2021 12 :00:00 AM EDT eCW1 ([facility]) N81.10 [id number] Vaginal prolapse Problem 03/03/2021 12:00:00 AM EDT eCW1 ([facility]) R32 [id number] Incontinence in female Problem 02/02/2021 12 :00:00 AM EDT eCW1 ([facility]) R32 [id number] Unspecified urinary incontinence Problem 02/02/2021 12:00:00 AM EDT eCW1 ([facility]) N81.2 [id number] Cystocele with incomplete uterovaginal pr olapse Problem 02/02/2021 12:00:00 AM EDT eCW1 ([facility]) Surgeries/Procedures Procedure Description Date Indications Data Source(s) PERIODIC PREVENTIVE MED EST PATIENT 40-64YRS 12:00:00 AM EDT [facility] ([facility]) Med: Lidocaine Jelly 2% 6ml Intravesically (Glydo) 03/03/2021 12:00:00 AM EDT eCW1 ([facility]) TOBACCO USE ASSESSED 03/03/2021 12:00:00 AM EDT eCW1 ([facility]) Spirometry 02/09/2021 12:00:00 AM EDT M EDENT ([facility]) OFFICE OUTPATIENT NEW 45 MINUTES 02/09/2021 12:00:00 A M EDT [facility] ([facility]) OFFICE OUTPATIENT VISIT 25 MINUTES 02/09/2021 12:00:00 AM EDT [facility] ([facility]) OFFICE OUTPATIENT VISIT 10 MINUTES 12/14/2020 12:00:00 AM EDT [facility] ([facility]) Pessary Fitting & Insertion Of Pessary/Intravaginal Support Lia 12/12/2020 12:00:00 AM EDT [facility] ([facility]) OFFICE OUTPATIENT VISIT 15 MINUTES 12/12/2020 12:00:00 AM EDT [facility] ([facility]) OFFICE OUTPATIENT VISIT 15 MINUTES 11/14/2020 12:00:00 AM EDT [facility] ([facility]) OFFICE OUTPATIENT VISIT 10 MINUTES 09/16/2020 12:00:00 AM EDT [facility] ([facility]) Spirometry 09/01/2020 12:00:00 AM EDT M EDENT ([facility]) OFFICE OUTPATIENT VISIT 25 MINUTES 09/01/2020 12:00:00 AM EDT [facility] ([facility]) OFFICE OUTPATIENT VISIT 10 MINUTES 06/17/2020 12:00:00 AM EST [facility] ([facility]) Spirometry 03/24/2020 12:00:00 AM EDT M EDENT ([facility]) Results ID Date Data Source [id number] 04/22/2021 09:05:00 AM EST [facility] Name Value Range Interpretation Code Description Data Nikki rce(s) Supporting Document(s) SARS-CoV-2 (COVID-19) RNA [Presence] in Respiratory specimen by AILYN with probe detection Not Detected [facility] This lab was ordered by [facility] and reported by [employer]. ID Date Data Source [id number] 04/10/2021 01:01:[address] [facility] Name Value Range Interpretation Code Description Data Nikki rce(s) Supporting Document(s) Progress Note [facility] GLRVVe3iDoLIAgOq54/TUUdjBWSpw7YcTFfkBFr2XYmaVYBvP3UoDDA5vL1hSLM9PXaRRnUjGyWgKPG2 lbm [file] nBhcVuPa1t3SDcUBivyE3AfoeDRU8Aj/Juan David/4OPvSYvys+WyQd5wJ/L2MhZ7IiTXY3+EGSyD1kiiWGV4 [file] ICAgICAgICAgICAgICAgICAgICAgICAgICAgICAgICAgICAgICAgICAgICAgICAgICAgICAgICAgICAg RDEiPPNwSC3IOMRuTMCmTGCtLSOdLBLaNLAqQOWyRK AgICAgICAgICAgICAgICAgICAgICAgICAgICAgICAgICAgICAgICAgICAgICAgICAgICAgICAgICAgIC LwGKChJPWfQMPmQUZdYWLmKO8TCQEeCUMjGRVxDJUbYFRmLXRuYYWsSVDnTBNiXOFsPJZfXOYpLQNbXG AgICAgICAgICAgICAgICAgICAgICAgICAgICAgICAg DJHsFUMjNOBwJEYmLTUjBTKlSLFgGLUfNZXeMC2NLWImNZRgZCElAPDyPAGxIIGeBIOmHHLyFRQxCCPz ICAgICAgICAgICAgICAgICAgICAgICAgICAgICAgICAgICAgICAgICAgICAgICAgICAgICAgICAgICAg HIXoTKAkJJEbYT7KSHGoKORmNXCqAJLnALUvDULqIG AgICAgICAgICAgICAgICAgICAgICAgICAgICAgICAgICAgICAgICAgICAgICAgICAgICAgICAgICAgIC SfPVSgPBKvJKMlQBVrURFnROZxAQ2XVEMaSSIlOWFbFMSqIMGiZYSxZPNrOEOqOMNsDXNmKJXrBKKtNB AgICAgICAgICAgICAgICAgICAgICAgICAgICAgICAg HYOjJGOsXPXrBFJoGDSuAPPoGDYzUBDpVVAkQTHuZQ2UOUMpOSVvEGOhXSBgZSZxXDDqPMOcXHUwYBUv ICAgICAgICAgICAgICAgICAgICAgICAgICAgICAgICAgICAgICAgICAgICAgICAgICAgICAgICAgICAg ELOkRCRfMBUpFZNvNW5PQSRwAMNpVBEoRMTvZHXnQT AgICAgICAgICAgICAgICAgICAgICAgICAgICAgICAgICAgICAgICAgICAgICAgICAgICAgICAgICAgIC DnKOYlIGDrDIMrYAOhPEKiWYMeGAXyEB7MUNWvMUZwHODtZAUxMBPwVKGoUOYtOHEkWKOfVOQeWRRpLX AgICAgICAgICAgICAgICAgICAgICAgICAgICAgICAg AHQgQZBsGOUaPVFcDLEeLPXpZIRwANYbFUVoFKNtAKCjJK5RGVZtPYXnQZKoNXDqQHCnMTByFJEzGANf ICAgICAgICAgICAgICAgICAgICAgICAgICAgICAgICAgICAgICAgICAgICAgICAgICAgICAgICAgICAg GLSaJITwIRXgHNOfLFGjSA6FRR28wGQqv1W5IOZyVE 0ndyc/Vt8ZIYyhcvTocKKpKK4ZOzIqFE3mno4MEcJzQX5gfc3TLEfMQtHtQ1D6eRShBPTiDFUTJwTlI5 1pXTmmVz64HWdcDKQoLgDnJDj2To9DGcGeB2giHYKcZeG6YZNnMcYuDOenAL1Ds8AhdWItOAs+Pg0KZW 5nh8NaAPwcJYJnXG6hjp5QIXvOYnIdL7AyqzY6GPVb GBKaHh4VHCSfPKDtjPXuKBFxUJLCKiStD5SunO65HBFLUo2+BZbzuxNaUysEKmIwXXPhs9SbMUm5VJ3D WOZzADm3rNItTUTdJ5Beh9SdEj75DNRvYxrpYSAkhQYtWBUGVXZ5HPnqLWWxOFXePO0oAY5eZIJ9ZIL2 WhL4JHJTAV8QZWFrOYUuaMPnWEYsLUGEJP6EOQafSX I0EMZrejKadXCwPKsrNE4GHDXveiYbVDqsWSDHHXs+Rc4RQJ6vd6IwWYfyJBGtLP7acz0FAMdOGoIiR3 I3gNMnZ1Z1WKjgMh8QZJCwQLTqKKtvRMATEYyrMT4LEU3vodP3GZ0UgIZtIANyAKFfySCbBLk5C32bpS QdHVwlTM1EMMH+Sultana+Wp3QUPUrKKRdWCRkQzUvNAMV PcPcS5NzO8ZZz4KlX9OjUA83fKjfjsKhHYjrAG2VKV4pXVBoEDSGBJ6YwCQujX3zmhPaDGIiLWXRExJp N37ltHTdFPPmVOJ2BDJzJm8BVPJjZ1GthrUtoFhlakLrJXIoVAQHYX6DJEqxfvNrkGXvgDqnNK19hMzl ZA0EHw9DLcEyTQ0bjf8OoWQkQc6YUSGiRs7ROATkHS ScQMVePPZ4WXWnNpJjPLmcLPQnEFMyOHW2ABZiRIEkNA1PWfMmIPWmWPlrFAmdAHHrLABhen5FMRMmQH JzBWs9OkKzPYNjSITbHSlnRGIoKEAyREU1WXXrZLMnOS2DZwPyCJSsFLLvGiAmYFRsVBIqnj6HVCQhTR IxUfO6QQTjNEMfZEPyIIkuIDEsNTJeXlT4CGGvYIOh ZB1VGaKuDYXxSWU6WlRdAEZcDZNijf4UAYEeBQRqWvZcRyOwPQAhJQQcTKrxVSKnZGG4KHxzUVBaCRJy NB2HIkWlZOBpKKA8IgSwECExLGJrcx8QXYGmTKReFYi2VNOxPAHhAGTfWJumYQSkHTC0YuM9DXUcZVLb OE1QPcLeTEGuMOI1ZbAaRKWnXRTwwl2BRDJsLWJnNx o1VQBhXFWiYECgHUbaHTBiZFW6UIzfPPUqOPPhYC9AJtVuJVAaHAjyHhLjHMGqYTOayp5DKYTmEGElIq CzCrZnJMZdXWQtAIlbXPZhOBO8KQA4ESCkHPWuMY3XDiHwEHNrISjjXaIcJRFiYTUzpu8IJMLeJGZeTK Q4CjZeXFTeNAYqGBm7maApiKEfJKf1NB9IU2FxwmPi IzSRIc4Ot730OPEmFGKwQg3HU9wzZv3rKYJwODGYGk0WIEp2VPY5MzAyXAZ0XHbyFIMzI6TwL8VqLByo EJovOgN4DXN+FQhuECQvHSO5PMtsIwAzQgAqDnNkI9GfPpQ9VJFwTGwiIc6rGOHUQd3+DQpzdGFydHhy GKNZMiI8LWM4XMkaFPVDOa5P ID Date Data Source [id number] 04/10/2021 01:00:59 PM EST [facility] Name Value Range Interpretation Code Description Data Nikki rce(s) Supporting Document(s) Progress Note [facility] MNHMHq8tXlRHMbVx18/YBWvkODNbm9BoEFsrZQa5IUniKXMqX8QkLDM4cV9fUOT4SKtMYcEwRvSgDQC1 lbm [file] 9pc6+ssn8bx5Cae7DeU112Z6gjaoEjPyiVgeOqt/environmental specialist [file] 7EXdVUzivC7RuikPNO1On/Juan David/4OPvSYvys+RvTu3sS/Q7CnK2EtWFA2+IXSoQ3wqpPRX2WCcWAWTxND [file] AgICAgICAgICAgICAgICAgICAgICAgICAgICAgICAgICAgICAgICAgICAgICAgICAgICAgICAgICAgIA 0KICAgICAgICAgICAgICAgICAgICAgICAgICAgICAg ICAgICAgICAgICAgICAgICAgICAgICAgICAgICAgICAgICAgICAgICAgICAgICAgICAgICAgICAgICAg KJQcVUKeOUDvZS3LISKqGGLlGTTcWIRvKKVzCBWvCOPiXPFvWIFhNZKoUSNnAOOqKRXkMIPrEUSlDVOq ICAgICAgICAgICAgICAgICAgICAgICAgICAgICAgIC NcENNjXDXtLHPdKEDeMMSeOZAhLX1YVOBgAHIyZNFdWYBmKFSjGYMhCZSnAJVxNCBlDWXvBXZxSVFzWP AgICAgICAgICAgICAgICAgICAgICAgICAgICAgICAgICAgICAgICAgICAgICAgICAgICAgICAgICAgIC DwAZ5HLDSqYYJaGFXiMDGyGAPhNPYeZDAhTHDmYWQj ICAgICAgICAgICAgICAgICAgICAgICAgICAgICAgICAgICAgICAgICAgICAgICAgICAgICAgICAgICAg NHLiSMRwIKTtHEQyVU6VSMWcVXKlMEVpVDRiXLTwXRAuXEKiVMEbSJOqYUCrRSFzGFXcLNVdKOVeACGu ICAgICAgICAgICAgICAgICAgICAgICAgICAgICAgIC XnRADfVAEuLCRfYAHkWRJzGMFgGYYyWO1QBXZfUGEaRFWxMXTzMJFoXDVlXABpVFTdAHZfSRCeCEWwLE AgICAgICAgICAgICAgICAgICAgICAgICAgICAgICAgICAgICAgICAgICAgICAgICAgICAgICAgICAgIC FrADBnHY3BKDOiXZWeUPNxUHVaUNPqVVYxZDXrOBXc ICAgICAgICAgICAgICAgICAgICAgICAgICAgICAgICAgICAgICAgICAgICAgICAgICAgICAgICAgICAg AKWpELBhAHWdCQMfMQQzLF3WHZPzYPXhWRHfQIKwLXTvYODwJZCcYPYvYPEjGGYbPUOaSIHnYMAqVECt ICAgICAgICAgICAgICAgICAgICAgICAgICAgICAgIC KhWVEyDOOqGHMlVIFtXRKbXWMeRXNhPZVhPL7UESWnLEJzWYOoHWToAESeNCYwQVOmIYVtDIMwBORbYR AgICAgICAgICAgICAgICAgICAgICAgICAgICAgICAgICAgICAgICAgICAgICAgICAgICAgICAgICAgIC YeNNTeFWIjAV0KXG93xNGkl7D1EYNsCH6saig/Pg0K BQsvtoMcgTLqOU5YNsTdJE2pfg4DJrAuNA1mse4TYNoBWlXoB4V0mNYmHTDnHLACIdWkL53nBUgnIc36 BVyuKQKhEpAtATv9Gm1NDxQoQ9swWYEbXuJ1BKOlIfLdOXjuVY3Ty3YxaFGsKWd+Ne9PHS0pi6QyMKee VDWcHX9sgt0XKUoUUyVjY8NkmzL2LMMyKOStVb7NXQ IhIQIbaJHyCKFuSHNGFyAgX2SbnH36LPSCEz9+GZhvhlWyQnpSEbFpZZEyq9TfWNt0TJ7POJViYEy0lD ZtUIDgD7Wem8RaCc22ACBiZsxaBQAwcCKmAVWXMPZ5GQrfSMOsXZScIU9gEA4fISP6NSJ7EoA6RJKFGJ 2WYBUcXFYejXEzVAQoCJUIQP0BQJziCVH1QPBhrrBp dDIhOAoyFO8NMJAhftQfKXtqVZIJHDg+Ta8ZIV6wc1CnUPnkXQLqQO1ebc6UJPrBStAlB6P4xEAcU6A0 RUiuYv6PWVMdJQXxTAecYZCWLEdaKX6EFJ4zneH4WQ4PwVQeZFRiQRKcsQOsYTo6O91fyIIoVYelRJ6L ICA+Sultana+Mh2LXEVoBAAdHXOzRpKyQOJIYtHhT5ZxW1 CUq0SbH9IcZE34yAejcvPiDOseAV9TNT1tVCFuOILQPQ9XdARzeG1hiqVlXFZnHEERQoMtG78zkFSuPE YuUFE4FKLsAp8YKAMiL9VpeiXqmGddehHgAFGxIJKNCL2KXWhvsqWwmJNzoAlrFA32pVevZL4PGv4JBe OqYC2ahw0OqWIoAh1QRJWzCa6DHHIwRCSnEJOzATL0 ARMkUvRrQIvfOKIuVILoKKO3SEPoCVKzCH5XWkGtDBTaHIkkCNEoHOZeSCBqej7CGENmGTEzOECtAKAw WNZpQPMeFHtuKHKaQRNjAIR6PNIfSOYjMA8QHuPpCYRtVGZuHIjoRNVlYYRyez3ZTJZdDQVgUlBrMdQx RVZuAFMlIYxuXYPkTTZaCmwkGPIfVFJyCS2SLyRyDI RiEJP7RuaqXNPlCWWkbb4NAZImHANiOmp9SiBfKNRiHEIaXJkxTMOrJQG4ByJ9TLEkESUzGD5AQwEnUX NbDIG6WGfuSJJyGBXiwg3VEMSbIGVoHELuQEXeYKBlZAPeESrwHACfZYI0NRP9XJKqSOYpRJ6JMsUaCO DdUPN2HhXrFCIiIFPehe0NTTDcZYZrLfv1WMTdKBJv QINnURdhJIYpPDK3AqN1ODHxDOYsQQ6GFpAjGXVsRXlcYvGpNPJzAMKdfh3WDFVeHYYaOwl3MRZrBPQx WQFaNUryAEOxSAF1NcG5QKRmKUUoWD4LZtNuUWKrVJteEomjJCVbMLIcex1ZQTKiHSIiVAIjSoUvCZXs MQNsZHm8qxMmfSYcMLs5SE6BV4QbrtEiKkCVCo2Hr5 86ZXWbUZIwOn1SX7iwTl4iHHMvBCXXMr8RYXf8FAEpUfvwGPy4PaH4LbYoWHPtTuLdGxR6WvWaBqH5Ir M+ANwzFKGjYMSuAizrHbHeA3X7P5AjVeMiFnG6HYH8VEiiQj4tDABFBx5+NFijwVHpkLddJORTWlL0Lu knNGmuONUYPf4R ID Date Data Source [id number] 04/05/2021 08:00:00 AM EST [facility] Name Value Range Interpretation Code Description Data Nikki rce(s) Supporting Document(s) SARS-CoV-2 (COVID-19) RNA [Presence] in Respiratory specimen by AILYN with probe detection Not Detected [facility] This lab was ordered by [facility] and reported by [employer]. ID Date Data Source [id number] 03/31/2021 12:10:00 PM EDT [facility] ([facility], ) Name Value Range Interpretation Code Description Data Nikki rce(s) Supporting Document(s) Surgical pathology study Laboratory test result [facility] ([facility], ) FINAL DIAGNOSIS A-Gastric biopsy: Gastric mucosa with mild chronic inflammation and reactive changes. No H.pylori is identified. B-Esophagus, biopsy: Squamocolumnar junction mucosa with mild chronic inflammation and reactive changes. No intestinal metaplasia seen. C-Colon polyps, polypectomy: Tubular adenoma, fragments. Separate fragments of hyperplastic polyp. 04/03/20211050 CLINICAL DIAGNOSIS Heartburn, colon polyps 03/31/2021 - [...] cm. All in one. -OA 04/03/2021 - 1051 Signed MARLIN SINGH MD 04/03/2021 1052 ID Date Data Source URINE CULTURE 03/30/2021 12:00:00 AM EDT eCW1 ([facility]) Name Value Range Interpretation Code Description Data Nikki rce(s) Supporting Document(s) Laboratory studies (set) URINE CULTU RE eCW1 ([facility]) ID Date Data Source UA URINALYSIS 03/30/2021 12:00:00 AM EDT eCW1 ([facility]) Name Value Range Interpretation Code Description Data Nikki rce(s) Supporting Document(s) UA URINALYSIS eCW1 ([facility]) ID Date Data Source Comprehensive Metabolic Profile (CMP) 03/30/2021 12:00:00 AM EDT eCW1 ([facility]) Name Value Range Interpretation Code Description Data Nikki rce(s) Supporting Document(s) 90 70-100 GLUCOSE, FASTING eCW1 ([facility]) 14 7-18 BLOOD UREA NITROGEN eCW1 ([facility]) 0.87 0.55-1.30 CREATININE FOR GFR eCW1 ([facility]) 139 136-145 SODIUM LEVEL eCW1 ([facility]) > 60.0 >51 GLOMERULAR FILTRATION RATE eCW 1 ([facility]) 4.6 3.5-5.1 POTASSIUM SERUM eCW1 (Replaced by [facility]) 25 21-32 CARBON DIOXIDE LEVEL eCW1 ([facility]) 105 98-107 CHLORIDE LEVEL eCW1 ([facility]) 19 7-37 AST/SGOT eCW1 ([facility]) 9.9 8.5-10.1 CALCIUM LEVEL eCW1 ([facility]) 94 45-117 ALKALINE PHOSPHATASE eCW1 ([facility]) 29 12-78 ALT/SGPT eCW1 ([facility]) 0.6 0.2-1.0 BILIRUBIN,TOTAL eCW1 (Replaced by [facility]) 1.1 1.2-2.2 ALBUMIN/GLOBULIN RATIO eCW1 ([facility]) 7.4 6.4-8.2 TOTAL PROTEIN eCW1 ([facility]) 3.9 3.2-5.2 ALBUMIN eCW1 ([facility]) ID Date Data Source CBC with Differential 03/30/2021 12:00:00 AM EDT eCW1 ([facility]) Name Value Range Interpretation Code Description Data Nikki rce(s) Supporting Document(s) 8.6 4.0-10.0 WHITE BLOOD COUNT eCW1 ([facility]) 45.0 36.0-47.0 HEMATOCRIT eCW1 ([facility]) 4.89 4.00-5.40 RED BLOOD COUNT eCW1 (Replaced by [facility]) 14.2 12.0-15.5 HEMOGLOBIN eCW1 ([facility]) 31.6 32.0-36.5 MEAN CORPUSCULAR HGB CONC eCW1 ([facility]) 29.0 27.0-33.0 MEAN CORPUSCULAR HEMOGLOB IN eCW1 ([facility]) 92.0 80.0-96.0 MEAN CORPUSCULAR VOLUME e CW1 ([facility]) 13.0 11.5-14.5 RED CELL DISTRIBUTION WID TH eCW1 ([facility]) 526 150-450 PLATELET COUNT, AUTOMATED eCW1 ([facility]) 22.6 24.0-44.0 LYMPH % eCW1 ([facility]) 66.4 36.0-66.0 NEUTROPHILS % eCW1 ([facility]) 1.0 0.0-3.0 EOS % eCW1 ([facility]) 8.6 2.0-8.0 MONO % eCW1 ([facility]) 0.9 0.0-1.0 BASO % eCW1 ([facility]) 5.7 1.5-8.5 NEUTROPHILS # eCW1 ([facility]) 0.7 0.0-0.8 MONO # eCW1 ([facility]) 2.0 1.5-5.0 LYMPH # eCW1 ([facility]) 0.1 0.0-0.5 EOS # eCW1 ([facility]) 0.1 0.0-0.2 BASO # eCW1 ([facility]) ID Date Data Source XRAY CHEST 2 VIEW CLY.CXR2 CLY 03/30/2021 12:00:00 AM EDT eC W1 ([facility]) Name Value Range Interpretation Code Description Data Nikki rce(s) Supporting Document(s) XRAY CHEST 2 VIEW CLY.CXR2 CLY eCW1 ([facility]) ID Date Data Source [id number] 03/27/2021 09:35:00 AM EDT [facility] Name Value Range Interpretation Code Description Data Nikki rce(s) Supporting Document(s) SARS-CoV-2 (COVID-19) RNA [Presence] in Respiratory specimen by AILYN with probe detection Not [facility]ed [facility] ordered by [facility] and reported by [employer]. ID Date Data Source [id number] 03/22/2021 12:00:00 PM EDT MEDENT ([facility]) Name Value Range Interpretation Code Description Data Nikki rce(s) Supporting Document(s) TP Reflex HPV ASCUS Laboratory test result [facility] ([facility]) TP Reflex HPV ASCUS Laboratory test result [facility] ([facility]) SPECIMEN PART------ A. Vaginal, ThinPrep Pap (Order Administrator) CYTOLOGY HX-------- Other Information:Previous Pap: NEGATIVE FINAL DIAGNOSIS---- INTERPRETATION: Negative for Intraepithelial Lesion or Malignancy. SPECIMEN ADEQUACY:Satisfactory for evaluation. ID Date Data Source [id number] 02/09/2021 10:48:00 AM EDT MEDENT ([facility], ) Name Value Range Interpretation Code Description Data Nikki rce(s) Supporting Document(s) PDFReport Laboratory test result MEDENT ([facility], ) FVC-Pred 3.48 L MEDENT ([facility]) FVC-Pre 3.26 L MEDENT ([facility]) FVC-%Pred-Pre 93 L MEDENT ([facility]) FVC-LLN 2.77 L [facility] ([facility]) Fev1-Pre 2.46 L [facility] ([facility]) Fev1-Pred 2.70 L [facility] ([facility]) Fev1-LLN 2.10 L MED[facility] ([facility]) Fev1-%Pred-Pre 90 L MEDENT ([facility]) Fev6-%Pred-Pre 96 L MEDENT ([facility]) Fev6-Pred 3.37 L MED[facility] ([facility]) Fev6-Pre 3.26 L [facility] ([facility]) Vgv8mzd-Ebus 78 % MEDENT ([facility]) Fev6-LLN 2.66 L MEDENT ([facility]) Hjw6ifr-%Pred-Pre 96 % MEDENT ([facility]) Gxi3ago-Ttp 75 % MED[facility] ([facility]) Zqe1ejs-DVJ 69 % [facility] ([facility]) Vcc3msi-Iwvh 97 % [facility] ([facility]) Sqb0gdr-%Pred-Pre 103 % [facility] ([facility]) Auu1odx-Llg 100 % [facility] ([facility]) FEFMax-Pre 4.33 L/E/sec MEDENT ([facility]) FEFMax-Pred 6.55 L/E/sec MED[facility] ([facility]) FEFMax-%Pred-Pre 66 L/E/sec [facility] ([facility]) FEFMax-LLN 4.78 L/E/sec MED[facility] ([facility]) Lhg8175-Mdn 2.05 L/E/sec [facility] ([facility]) She9981-%Pred-Pre 82 L/E/sec MED[facility] ([facility]) Zgg6376-Ycqw 2.49 L/E/sec MEDENT ([facility]) Mzq0363-AVR 1.21 L/E/sec [facility] ([facility]) ExpTime-Pre 6.51 sec MED[facility] ([facility]) Lxg4wef1-Gra 75 % [facility] ([facility]) Ivm2ott9-Uvpz 81 % [facility] ([facility]) Qlb6hqq2-%Pred-Pre 93 % [facility] ([facility]) Jry0kcy8-JWO 72 % [facility] ([facility]) ID Date Data Source [id number] 09/01/2020 11:19:00 AM EDT MEDENT ([facility]) Name Value Range Interpretation Code Description Data Nikki rce(s) Supporting Document(s) PDFReport Laboratory test result MEDENT ([facility]) FVC-Pred 3.48 L MEDENT ([facility]) FVC-Pre 3.37 L [facility] ([facility]) FVC-%Pred-Pre 96 L [facility] ([facility]) FVC-LLN 2.77 L MED[facility] ([facility]) Fev1-Pred 2.70 L MED[facility] ([facility]) Fev1-%Pred-Pre 92 L [facility]ENT ([facility]) Fev1-Pre 2.51 L [facility] ([facility]) Fev1-LLN 2.10 L MED[facility] ([facility]) Fev6-Pre 3.37 L MED[facility] ([facility]) Fev6-Pred 3.37 L MEDENT ([facility], ) Jmm8ztw-Bqcq 78 % [facility] ([facility]) Fev6-LLN 2.66 L [facility] ([facility]) Fev6-%Pred-Pre 100 L [facility] ([facility], ) Pts4squ-%Pred-Pre 94 % [facility] ([facility], ) Try8okh-Wsa 74 % [facility] ([facility]) Nnj1igf-QLH 69 % [facility] ([facility]) Geq1mvt-%Pred-Pre 103 % [facility] ([facility]) Hdo7lhi-Apqz 97 % [facility] ([facility]) Eqf2fxz-Rti 100 % [facility] ([facility]) FEFMax-Pred 6.55 L/E/sec [facility] ([facility] ) FEFMax-%Pred-Pre 93 L/E/sec MED[facility] ([facility]) FEFMax-Pre 6.14 L/E/sec MED[facility] ([facility]) FEFMax-LLN 4.78 L/E/sec MED[facility] ([facility]) Evf9898-Rrl 1.91 L/E/sec [facility] ([facility]) Ohf6260-Ofdj 2.49 L/E/sec MED[facility] ([facility]) Cem6967-VQN 1.21 L/E/sec [facility] ([facility]) Eol8100-%Pred-Pre 76 L/E/sec MED[facility] ([facility]) ExpTime-Pre 5.21 sec MED[facility] ([facility]) Grx8wxe8-Tqhd 81 % [facility] ([facility]) Mid6bmg3-Puk 74 % [facility] ([facility]) Pic8lfv5-%Pred-Pre 91 % [facility] ([facility]) Ndb9uat4-AHT 72 % MEDENT ([facility], ) ID Date Data Source [id number] 05/09/2020 12:00:00 AM EST [facility] Name Value Range Interpretation Code Description Data Nikki rce(s) Supporting Document(s) SARS coronavirus 2 RNA [Presence] in Res piratory specimen by AILYN with probe detection [facility] This lab was ordered by Geri Metzger and reported by [employer]. Procedure Social History Code Duration Value Status Description Data Source(s ) Smoking 03/30/2021 12:00:00 AM EDT Former Smoker completed Former Smoker eCW1 ([facility]) Smoking 03/30/2021 12:00:00 AM EDT Former Smoker completed Former Smoker eCW1 ([facility]) Smoking 03/30/2021 12:00:00 AM EDT Former Smoker completed Former Smoker eCW1 ([facility]) Smoking 03/22/2021 12:00:00 AM EDT Patient is a former smoker completed Patient is a former smoker [facility] ([facility]) Smoking 03/14/2021 12:00:00 AM EDT Former Smoker completed Former Smoker eCW1 ([facility]) Smoking 03/14/2021 12:00:00 AM EDT Former Smoker completed Former Smoker eCW1 ([facility]) Smoking 03/14/2021 12:00:00 AM EDT Former Smoker completed Former Smoker eCW1 ([facility]) Smoking 03/03/2021 12:00:00 AM EDT Former Smoker completed Former Smoker eCW1 ([facility]) Smoking 03/03/2021 12:00:00 AM EDT Former Smoker completed Former Smoker eCW1 ([facility]) Smoking 02/17/2021 12:00:00 AM EDT Former Smoker completed Former Smoker eCW1 ([facility]) Smoking 02/17/2021 12:00:00 AM EDT Former Smoker completed Former Smoker eCW1 ([facility]) Smoking 02/09/2021 12:00:00 AM EDT - 05/27/2000 12:00:00 AM EST Patient is a former smoker completed Patient is a former smoker MEDENT ([facility], ) Smoking 02/02/2021 12:00:00 AM EDT Former Smoker completed Former Smoker eCW1 ([facility]) Smoking 12/21/2020 12:00:00 AM EDT Former Smoker completed Former Smoker eCW1 ([facility]) Smoking 12/21/2020 12:00:00 AM EDT Former Smoker completed Former Smoker eCW1 ([facility]) Smoking 12/21/2020 12:00:00 AM EDT Former Smoker completed Former Smoker eCW1 ([facility]) Smoking 12/06/2020 12:00:00 AM EDT Former Smoker completed Former Smoker eCW1 ([facility]) Smoking 12/06/2020 12:00:00 AM EDT Former Smoker completed Former Smoker eCW1 ([facility]) Smoking 12/06/2020 12:00:00 AM EDT Former Smoker completed Former Smoker eCW1 ([facility]) Smoking 10/25/2020 12:00:00 AM EDT Former Smoker completed Former Smoker eCW1 ([facility]) Smoking 10/25/2020 12:00:00 AM EDT Former Smoker completed Former Smoker eCW1 ([facility]) Smoking 10/25/2020 12:00:00 AM EDT Former Smoker completed Former Smoker eCW1 ([facility]) Smoking 04/28/2020 12:00:00 AM EST Former Smoker completed Former Smoker eCW1 ([facility]) Smoking 04/28/2020 12:00:00 AM EST Former Smoker completed Former Smoker eCW1 ([facility]) Smoking 04/28/2020 12:00:00 AM EST Former Smoker completed Former Smoker eCW1 ([facility]) Vital Signs ID Date Data Source UNK Name Value Range Interpretation Code Description Data Source(s) Systolic blood pressure 142 mm[Hg] 142 mm[Hg] M EDDOREEN ([facility], ) Diastolic blood pressure 76 mm[Hg] 76 mm[Hg] KELLY ([facility], ) Body height 65 [in_i] 65 [in_i] KELLY ([facility], ) 5'5" Body weight 194.00 [lb_av] 194.00 [lb_av] MEDEN T ([facility]) Body mass index (BMI) [Ratio] 32.3 kg/m2 32.3 k g/m2 MEDENT ([facility]) [place] body weight 125 [lb_av] 125 [lb_av] MEDEN T ([facility]) Body weight 87.998 kg 87.998 kg MEDENT ([facility]) Body surface area Derived from formula 1.[address] [facility] ([facility]) Body weight 193 [lb_av] 193 [lb_av] eCW1 ([facility]) Body weight 87.54 kg 87.54 kg W1 ([facility]) Body height 64 [in_i] 64 [in_i] eCW1 ([facility]) Body mass index (BMI) [Ratio] 33.12 kg/m2 33.12 kg/m2 eCW1 ([facility]) Heart rate 82 /min 82 /min eCW1 (Replaced by [facility]) Respiratory rate 20 /min 20 /min eCW1 ([facility]) Body temperature 97.1 [degF] 97.1 [degF] eCW1 ( [facility]) Systolic blood pressure 118 mm[Hg] 118 mm[Hg] e CW1 ([facility]) Diastolic blood pressure 82 mm[Hg] 82 mm[Hg] eCW1 ([facility]) Body height 62.5 [in_i] 62.5 [in_i] [facility] ([facility]) 5'2.50" Body weight 194.00 [lb_av] 194.00 [lb_av] MEDEN T ([facility]) Body mass index (BMI) [Ratio] 34.9 kg/m2 34.9 k g/m2 [facility] ([facility]) Body surface area Derived from formula 1.90 m2 1.90 m2 [facility] ([facility]) Systolic blood pressure 120 mm[Hg] 120 mm[Hg] M EDENT ([facility]) Diastolic blood pressure 82 mm[Hg] 82 mm[Hg] [facility] ([facility]) Body weight 193 [lb_av] 193 [lb_av] eCW1 ([facility]) Body height 64 [in_i] 64 [in_i] eCW1 ([facility]) Body mass index (BMI) [Ratio] 33.12 kg/m2 33.12 kg/m2 eCW1 ([facility]) Heart rate 83 /min 83 /min eCW1 (Replaced by [facility]) Respiratory rate 18 /min 18 /min eCW1 ([facility]) Body temperature 98.5 [degF] 98.5 [degF] eCW1 ( [facility]) Systolic blood pressure 132 mm[Hg] 132 mm[Hg] e CW1 ([facility]) Diastolic blood pressure 84 mm[Hg] 84 mm[Hg] eCW1 ([facility]) Body mass index (BMI) [Ratio] 33.47 kg/m2 33.47 kg/m2 eCW1 ([facility]) Body weight 195 [lb_av] 195 [lb_av] eCW1 ([facility]) Body height 64 [in_i] 64 [in_i] eCW1 ([facility]) Heart rate 88 /min 88 /min eCW1 (Replaced by [facility]) Systolic blood pressure 120 mm[Hg] 120 mm[Hg] e CW1 ([facility]) Diastolic blood pressure 76 mm[Hg] 76 mm[Hg] eCW1 ([facility]) Body temperature 98.0 [degF] 98.0 [degF] eCW1 ( [facility]) Respiratory rate 18 /min 18 /min eCW1 ([facility]) Heart rate 75 /min 75 /min eCW1 (Replaced by [facility]) Body weight 180 [lb_av] 180 [lb_av] eCW1 ([facility]) Body weight 81.65 kg 81.65 kg eCW1 ([facility]) Body height 64 [in_i] 64 [in_i] eCW1 ([facility]) Respiratory rate 17 /min 17 /min eCW1 ([facility]) Body mass index (BMI) [Ratio] 30.89 kg/m2 30.89 kg/m2 eCW1 ([facility]) Body temperature 97.7 [degF] 97.7 [degF] eCW1 ( [facility]) Systolic blood pressure 118 mm[Hg] 118 mm[Hg] e CW1 ([facility]) Diastolic blood pressure 74 mm[Hg] 74 mm[Hg] eCW1 ([facility]) Oxygen saturation in Arterial blood by Pulse oximetry 98 % 98 % [facility] ([facility]) Body weight 197.00 [lb_av] 197.00 [lb_av] MEDEN T ([facility]) Body mass index (BMI) [Ratio] 32.8 kg/m2 32.8 k g/m2 [facility] ([facility]) [place] body weight 125 [lb_av] 125 [[facility]_av] [facility] Systolic blood pressure 118 mm[Hg] 118 mm[Hg] M EDENT ([facility]) Diastolic blood pressure 64 mm[Hg] 64 mm[Hg] [facility] ([facility]) Heart rate 78 /min 78 /min [facility] ([facility]) Body height 65 [in_i] 65 [in_i] [facility] ([facility]) 5'5" Body weight 89.[address] [facility] ([facility]) Body surface area Derived from formula 1.[address] [facility] ([facility]) Body weight 180 [lb_av] 180 [lb_av] eCW1 ([facility]) Body weight 81.65 kg 81.65 kg W1 ([facility]) Body height 64 [in_i] 64 [in_i] W1 ([facility]) Body mass index (BMI) [Ratio] 30.89 kg/m2 30.89 kg/m2 [facility] ([facility]) Heart rate 85 /min 85 /min eCW1 (Replaced by [facility]) Respiratory rate 17 /min 17 /min eCW1 ([facility]) Body temperature 98.7 [degF] 98.7 [degF] eCW1 ( [facility]) Systolic blood pressure 122 mm[Hg] 122 mm[Hg] e CW1 ([facility]) Diastolic blood pressure 78 mm[Hg] 78 mm[Hg] eCW1 ([facility]) Body weight 198 [lb_av] 198 [lb_av] eCW1 ([facility]) Body height 64 [in_i] 64 [in_i] eCW1 ([facility]) Body mass index (BMI) [Ratio] 33.98 kg/m2 33.98 kg/m2 eCW1 ([facility]) Heart rate 84 /min 84 /min eCW1 (Replaced by [facility]) Respiratory rate 18 /min 18 /min eCW1 ([facility]) Body temperature 98.9 [degF] 98.9 [degF] eCW1 ( [facility]) Systolic blood pressure 130 mm[Hg] 130 mm[Hg] e CW1 ([facility]) Diastolic blood pressure 87 mm[Hg] 87 mm[Hg] eCW1 ([facility]) Body weight [lb_av] eCW1 ([facility]) Body height 64 [in_i] 64 [in_i] eCW1 ([facility]) Body mass index (BMI) [Ratio] 32.78 kg/m2 32.78 kg/m2 eCW1 ([facility]) Heart rate 86 /min 86 /min eCW1 (Replaced by [facility]) Respiratory rate 18 /min 18 /min eCW1 ([facility]) Body temperature 98.2 [degF] 98.2 [degF] eCW1 ( [facility]) Systolic blood pressure 129 mm[Hg] 129 mm[Hg] e CW1 ([facility]) Diastolic blood pressure 84 mm[Hg] 84 mm[Hg] eCW1 ([facility]) Body weight 199 [lb_av] 199 [lb_av] eCW1 ([facility]) Body height 64 [in_i] 64 [in_i] eCW1 ([facility]) Body mass index (BMI) [Ratio] 34.15 kg/m2 34.15 kg/m2 eCW1 ([facility]) Heart rate 76 /min 76 /min eCW1 (Replaced by [facility]) Respiratory rate 18 /min 18 /min eCW1 ([facility]) Body temperature 97.5 [degF] 97.5 [degF] eCW1 ( [facility]) Systolic blood pressure 122 mm[Hg] 122 mm[Hg] e CW1 ([facility]) Diastolic blood pressure 84 mm[Hg] 84 mm[Hg] eCW1 ([facility]) Body mass index (BMI) [Ratio] 33.8 kg/m2 33.8 k g/m2 [facility] ([facility]) Systolic blood pressure 126 mm[Hg] 126 mm[Hg] M EDENT ([facility]) Body weight 92.[address] [facility] ([facility]) Oxygen saturation in Arterial blood by Pulse oximetry 99 % 99 % [facility] ([facility]) Body temperature 97.9 [degF] 97.9 [degF] MEDENT ([facility]) Body height 65 [in_i] 65 [in_i] MED[facility] ([facility]) 5'5" Body weight 203.25 [lb_av] 203.25 [lb_av] MEDEN T ([facility]) Body mass index (BMI) [Ratio] 33.8 kg/m2 33.8 k g/m2 [facility] ([facility]) [place] body weight 125 [lb_av] 125 [lb_av] MEDEN T ([facility]) Body weight 92.[address] [facility] ([facility]) Body surface area Derived from formula 1.[address] [facility] ([facility]) Body surface area Derived from formula 1.99 m2 1.99 m2 [facility] ([facility]) [place] body weight 125 [lb_av] 125 [lb_av] MEDEN T ([facility]) Body temperature 97.9 [degF] 97.9 [degF] [facility] ([facility]) Body height 65 [in_i] 65 [in_i] [facility] ([facility]) 5'5" Diastolic blood pressure 74 mm[Hg] 74 mm[Hg] [facility] ([facility]) Heart rate 94 /min 94 /min [facility] ([facility]) Oxygen saturation in Arterial blood by Pulse oximetry 99 % 99 % [facility] ([facility]) Body weight 203.25 [lb_av] 203.25 [lb_av] MEDEN T ([facility]) Body temperature 97.5 [degF] 97.5 [degF] eCW1 ( [facility]) Body weight 195 [lb_av] 195 [lb_av] eCW1 ([facility]) Body height 64 [in_i] 64 [in_i] eCW1 ([facility]) Body mass index (BMI) [Ratio] 33.47 kg/m2 33.47 kg/m2 [facility] ([facility]) Heart rate 76 /min 76 /min eCW1 (Replaced by [facility]) Respiratory rate 20 /min 20 /min eCW1 ([facility]) Systolic blood pressure 120 mm[Hg] 120 mm[Hg] e CW1 ([facility]) Diastolic blood pressure 70 mm[Hg] 70 mm[Hg] eCW1 ([facility]) Systolic blood pressure 110 mm[Hg] 110 mm[Hg] M EDENT ([facility]) Diastolic blood pressure 74 mm[Hg] 74 mm[Hg] [facility] ([facility]) Heart rate 76 /min 76 /min [facility] ([facility]) Oxygen saturation in Arterial blood by Pulse oximetry 97 % 97 % [facility] ([facility]) Body temperature 97.8 [degF] 97.8 [degF] [facility] ([facility]) Body height 65 [in_i] 65 [in_i] [facility] ([facility]) 5'5" Body weight 197.00 [lb_av] 197.00 [lb_av] MEDEN T ([facility]) Body mass index (BMI) [Ratio] 32.8 kg/m2 32.8 k g/m2 [facility] ([facility]) [place] body weight 125 [lb_av] 125 [lb_av] MEDEN T ([facility]) Body weight 89.[address] [facility] ([facility]) Body surface area Derived from formula 1.[address] [facility] ([facility]) Patient Treatment Plan of Care Planned Activity Planned Date Details Description Data Source (s) Codeine Phosphate 2 MG/ML / Guaifenesin 20 MG/ML Oral Solution 03/14/2021 12:00:00 AM EDT eCW1 ([facility]) Amoxicillin 875 MG / Clavulanate 125 MG Oral Tablet 03/14/20 12:00:00 AM EDT eCW1 ([facility]) guaiFENesin-Codeine 200-10 MG/5ML 03/14/2021 12:00:00 AM EDT eCW1 ([facility]) Codeine Phosphate 2 MG/ML / Guaifenesin 20 MG/ML Oral Solution 03/14/2021 12:00:00 AM EDT eCW1 ([facility]) Amoxicillin 875 MG / Clavulanate 125 MG Oral Tablet 03/14/20 12:00:00 AM EDT eCW1 ([facility]) guaiFENesin-Codeine 200-10 MG/5ML 03/14/2021 12:00:00 AM EDT eCW1 ([facility]) Codeine Phosphate 2 MG/ML / Guaifenesin 20 MG/ML Oral Solution 03/14/2021 12:00:00 AM EDT eCW1 ([facility]) Amoxicillin 875 MG / Clavulanate 125 MG Oral Tablet 03/14/20 12:00:00 AM EDT eCW1 ([facility]) guaiFENesin-Codeine 200-10 MG/5ML 03/14/2021 12:00:00 AM EDT eCW1 ([facility]) Sulfamethoxazole 800 MG / Trimethoprim 160 MG Oral Tab let [Bactrim] 12/12/2020 12:00:00 AM EDT eCW1 ([facility]) NITROFURANTOIN, MACROCRYSTALS 25 MG / Ni trofurantoin, Monohydrate 75 MG Oral Capsule [Macrobid] 12/06/2020 12:00:00 AM EDT eC W1 ([facility]) Cyclobenzaprine hydrochloride 10 MG Oral Tablet 12/06/2020 12:00:00 AM EDT eCW1 ([facility]) Prednisone 10 MG Oral Tablet 12/06/2020 12:00:00 AM EDT eCW1 ([facility]) Fluconazole 150 MG Oral Tablet [Diflucan] 12/06/2020 12:00:00 AM ED T eCW1 ([facility]) Fluconazole 150 MG Oral Tablet [Diflucan] 12/06/2020 12:00:00 AM ED T eCW1 ([facility]) Prednisone 10 MG Oral Tablet 12/06/2020 12:00:00 AM EDT eCW1 ([facility]) Cyclobenzaprine hydrochloride 10 MG Oral Tablet 12/06/2020 12:00:00 AM EDT eCW1 ([facility]) NITROFURANTOIN, MACROCRYSTALS 25 MG / Ni trofurantoin, Monohydrate 75 MG Oral Capsule [Macrobid] 12/06/2020 12:00:00 AM EDT eC W1 ([facility]) Cyclobenzaprine hydrochloride 10 MG Oral Tablet 12/06/2020 12:00:00 AM EDT eCW1 ([facility]) Prednisone 10 MG Oral Tablet 12/06/2020 12:00:00 AM EDT eCW1 ([facility]) Fluconazole 150 MG Oral Tablet [Diflucan] 12/06/2020 12:00:00 AM ED T eCW1 ([facility])
[2021-04-27] MEDS ORDERED: BUPIVACAINE/EPIN 0.25% 30 ML VIAL As Ordered ONE (08:00)
[2021-04-27] MEDS ORDERED: METHYLENE BLUE 0.5% (5MG/ML) 10 ML AMP (PROVAYBLUE) As Ordered ONE (08:01)
[2021-04-27] MEDS ORDERED: ESTROGENS VAGINAL CREAM 30GM As Ordered ONE (08:01)
[2021-04-27] MEDS ORDERED: SCOPOLAMINE 1MG TRANSDERMAL PATCH TOP ONE (08:30)
[2021-04-27] MEDS ORDERED: LIDOCAINE 2% 100MG/5ML SDV (FOR ANES.) As Ordered ONE (08:48)
[2021-04-27] MEDS ORDERED: propofoL 200 MG/20 ML VIAL As Ordered ONE (08:49)
[2021-04-27] MEDS ORDERED: MIDAZOLAM INJ 2MG/2ML VIAL (J2250 PER 1MG) As Ordered ONE (08:53)
[2021-04-27] MEDS ORDERED: fentaNYL 100 MCG/2 ML INJECTION (J3010) As Ordered ONE ×2 (08:53→10:02)
[2021-04-27] MEDS ORDERED: ROCURONIUM BROMIDE 50 MG/5 ML VIAL As Ordered ONE (08:54)
[2021-04-27] MEDS ORDERED: ACETAMINOPHEN 1000MG 100ML IV BTL (OFIRMEV) (J0131 PER 10MG) As Ordered ONE (09:26)
[2021-04-27] MEDS ORDERED: ONDANSETRON 4MG/2ML VIAL As Ordered ONE (09:49)
[2021-04-27] MEDS ORDERED: dexameTHASONE 4 MG/ML 1ML VIAL (J1100 PER 1MG) As Ordered ONE (09:50)
[2021-04-27] MEDS ORDERED: SUGAMMADEX SODIUM 500 MG/5 ML VIAL (BRIDION) As Ordered ONE (09:59)
[2021-04-27] MEDS ORDERED: KETOROLAC 60MG 2ML VIAL As Ordered ONE (11:09)
[2021-04-27] MEDS ORDERED: HYDR-3713 PO (11:22)
[2021-04-27] MEDS ORDERED: BACT800T5 PO (11:22)
[2021-04-27] MEDS ORDERED: LR 1,000 ML IV SCH ×2 (11:45→11:50)
[2021-04-27] MEDS ORDERED: METOCLOPRAMIDE INJ 10MG/2ML VIAL (J2765 PER 1) IV PRN (11:45)
[2021-04-27] MEDS ORDERED: fentaNYL 100 MCG/2 ML INJECTION (J3010) IV PRN (11:45)
[2021-04-27] MEDS ORDERED: ONDANSETRON 4MG/2ML VIAL IV PRN (11:45)
[2021-04-27] MEDS ORDERED: PERCOCET 5MG/325MG TAB PO STA (12:03)
[2021-04-27] MEDS ORDERED: PERCOCET 5MG/325MG TAB PO PRN (12:40)
[2021-04-27 14:00] VITALS: BP 116/71
--- NOTE | 2021-04-27 16:39 | ROOPDOC ---
[facility] Report Of Operation Report of Operation DATE OF PROCEDURE: 04/27/21 PREPROCEDURE DIAGNOSES: [Cystocele]. POSTPROCEDURE DIAGNOSES: [Cystocele]. PROCEDURE PERFORMED: [Cystocele repair, cystoscopy]. SURGEON: [Edwardo Meyers, SECURITY SCREENER: [None], ANESTHESIA: [General]. ESTIMATED BLOOD LOSS: Approximately [100-150] mL. COMPLICATIONS: [None]. REMARKS: [60-year-old white female. Bothersome cystocele. Surgery was arranged. No guarantees were given. Risks were discussed such as infection, bleeding, pain, scarring, injury to the bladder, injury to the urethra, need for catheter, failure of the surgery, cystocele recurrence, injury to the ureter, risks of anesthesia and others. Patient underwent a hysterectomy and 2019. It seems a mesh sling was placed at the same time for stress incontinence. From what I can tell, the mesh eroded into the bladder and such required surgical correction. Because of the patient's history, I explained that there would be scarring. The risk of injury to the urinary tract was greater. Preoperatively patient told me not to place a urethral catheter. She had a catheter in the past and did not do well with it.]. FINDINGS: SPECIMENS REMOVED: [Vaginal wall] PROCEDURE NOTE: . DESCRIPTION OF PROCEDURE: [I met with the patient in the preop area and surgery was again discussed. Questions were answered. No guarantees were given. Risks were discussed as described above. Patient informed me that she did not want a urethral catheter. I explained that I usually place a catheter. After a discussion I agreed to her request. Patient was brought to the operating room. Surgery was done under coverage of IV [facility]. General anesthesia was secured without difficulty. Dorsolithotomy position. Well-padded. Prepped and draped in usual sterile fashion. A timeout was performed. A catheter was placed. The bladder was emptied. The labia were splayed out using suture. A weighted vaginal speculum was used. Landmarks were identified. The anterior vaginal wall was hydrodissected using injectable normal saline. A midline incision was made. The vaginal wall was from the bladder. Sharp dissection and blunt dissection were both used. Cautery was used to secure hemostasis as needed. Care was taken not to injure the bladder or urethra. Once satisfied, 0 Vicryl suture was used to bring the fascia on each side together in the midline. Several stitches were placed. A new floor for the bladder was created. Redundant vaginal wall was then excised on both sides and handed off. Rigid cystoscopy was performed. Before doing so, the anesthesia team injected methylene blue intravenously. The urethra and bladder were inspected. No injury was identified. No suture was seen. Methylene blue was noted coming from both UOs. The anterior vaginal wall was closed using 2-0 Vicryl. For the most part, interrupted stitches were used. A catheter was in place throughout surgery. It was removed at the end. Kerlix coated with lubrication was used for vaginal packing. Counts were correct. Patient tolerated surgery well left the room in satisfactory condition. Suture used to splay the labia was removed.]. BRIAN MEYERS MD Apr 27, 2021 16:39
== END 2021-04-27 14:15 | disposition home or self-care (01) ==
LOC: M SDC 06:47
PROVIDERS: ATTEND Urology
DX: N81.10 Cystocele, unspecified (principal); J45.20 Mild intermittent asthma, uncomplicated; E78.2 Mixed hyperlipidemia; K44.9 Diaphragmatic hernia without obstruction or gangrene; K21.9 Gastro-esophageal reflux disease without esophagitis; E03.9 Hypothyroidism, unspecified; Z87.891 Personal history of nicotine dependence; K58.1 Irritable bowel syndrome with constipation; Z79.899 Other long term (current) drug therapy
CPT/HCPCS: 57260; 88302; J0131; J0690; J1100; J1885; J2250; J2405; J3010; Q9968

== ENCOUNTER → 2021-06-13 | Outpatient (REF) | payer OTHER ==
[~2021-06-13] MED LIST changes: +BACT800T5 PO; +HYDR-3713 PO; -LR 1,000 ML IV ONE; -MONT10TA10 PO; +MONT10TA97 PO; -ceFAZolin SOD 2 GM in IV 1 EA IV ONE
== END ==
LOC: M SFHCCLAY 11:09
PROVIDERS: ATTEND Physician Assistant
DX: N89.8 Other specified noninflammatory disorders of vagina (principal)

== ENCOUNTER → 2021-07-06 | Outpatient (CLI) | payer BC, OTHER | LOC: M CLY 10:49 | PROVIDERS: ATTEND Nurse Practitioner Family | DX: R09.89 Other specified symptoms and signs involving the circulatory and respiratory systems (principal); R91.8 Other nonspecific abnormal finding of lung field ==

== ENCOUNTER → 2021-10-27 | Outpatient (REF) | payer OTHER ==
[~2021-10-27] MED LIST changes: +ALBU2.5V10 INH; -ALBU83IN INH
[2021-10-27 12:10] LABS: BASO # 0.1 10^3/uL (0.0-0.2); BASO % 1.1 % (0.0-1.0); EOS # 0.2 10^3/uL (0.0-0.5); EOS % 2.4 % (0.0-3.0); HEMATOCRIT 43.5 % (36.0-47.0); HEMOGLOBIN 13.9 g/dl (12.0-15.5); LYMPH # 1.8 10^3/uL (1.5-5.0); LYMPH % 24.9 % (24.0-44.0); MEAN CORPUSCULAR HEMOGLOBIN 28.5 pg (27.0-33.0); MEAN CORPUSCULAR VOLUME 89.3 fl (80.0-96.0); MONO # 0.6 10^3/uL (0.0-0.8); MONO % 8.7 % (2.0-8.0); NEUTROPHILS # 4.5 10^3/uL (1.5-8.5); NEUTROPHILS % 62.5 % (36.0-66.0); PLATELET COUNT, AUTOMATED 439 10^3/uL (150-450); RED BLOOD COUNT 4.87 10^6/uL (4.00-5.40); WHITE BLOOD COUNT 7.2 10^3/uL (4.0-10.0)
[2021-10-27 14:26] LABS: ALBUMIN 3.6 GM/DL (3.2-5.2); ALT/SGPT 22 U/L (12-78); BILIRUBIN,TOTAL 0.6 MG/DL (0.2-1.0); BLOOD UREA NITROGEN 16 MG/DL (7-18); CALCIUM LEVEL 8.8 MG/DL (8.5-10.1); CARBON DIOXIDE LEVEL 26 MEQ/L (21-32); CHLORIDE LEVEL 107 MEQ/L (98-107); CHOLESTEROL LEVEL 197 MG/DL (<200); CREATININE FOR GFR 0.87 MG/DL (0.55-1.30); GLOMERULAR FILTRATION RATE > 60.0 (>51); GLUCOSE, FASTING 104 MG/DL (70-100); HDL CHOLESTEROL 50 MG/DL (>40); LDL CHOLESTEROL 124 MG/DL (<100); NON-HDL-C 147 MG/DL; POTASSIUM SERUM 4.3 MEQ/L (3.5-5.1); SODIUM LEVEL 141 MEQ/L (136-145); TOTAL PROTEIN 6.8 GM/DL (6.4-8.2); TRIGLYCERIDES LEVEL 116 MG/DL (<150)
== END ==
LOC: M SFHCCLAY 08:36
PROVIDERS: ATTEND Nurse Practitioner Family
DX: N81.10 Cystocele, unspecified (principal); J45.20 Mild intermittent asthma, uncomplicated; E78.2 Mixed hyperlipidemia; I10 Essential (primary) hypertension; K58.1 Irritable bowel syndrome with constipation; E03.9 Hypothyroidism, unspecified; K21.9 Gastro-esophageal reflux disease without esophagitis; K57.32 Diverticulitis of large intestine without perforation or abscess without bleeding; J31.2 Chronic pharyngitis

== ENCOUNTER → 2021-11-13 | Outpatient (CLI) | payer BC, OTHER | LOC: M PLAIMG 13:24 | PROVIDERS: ATTEND Nurse Practitioner Family | DX: R91.8 Other nonspecific abnormal finding of lung field (principal) ==

== ENCOUNTER → 2022-01-30 | Outpatient (CLI) | payer BC, OTHER | LOC: M CLY 10:10 | PROVIDERS: ATTEND Nurse Practitioner Family | DX: M79.672 Pain in left foot (principal); M77.32 Calcaneal spur, left foot ==

== ENCOUNTER → 2022-02-20 | Outpatient (REF) | payer BC, OTHER | LOC: M LAB REF 17:20 | PROVIDERS: ATTEND Internal Medicine Gastroenterology | DX: R19.7 Diarrhea, unspecified (principal); R19.4 Change in bowel habit ==

== ENCOUNTER 2022-03-21 10:50 | Outpatient (RCR) | payer BC, OTHER | END 2022-03-26 23:59 | disposition home or self-care (01) | LOC: M PT 10:50 | PROVIDERS: ATTEND Nurse Practitioner Family | DX: N81.11 Cystocele, midline (principal) ==

== ENCOUNTER → 2022-03-29 | Outpatient (CLI) | payer BC, OTHER | LOC: M WHC 12:57 | PROVIDERS: ATTEND Specialist | DX: Z12.31 Encounter for screening mammogram for malignant neoplasm of breast (principal) ==

== ENCOUNTER 2022-04-11 15:00 | Outpatient (RCR) | payer BC, OTHER | END 2022-04-25 | LOC: M PT 15:00 | PROVIDERS: ATTEND Nurse Practitioner Family | DX: N81.11 Cystocele, midline (principal) ==

== ENCOUNTER 2022-05-10 11:15 | Outpatient (RCR) | payer BC, OTHER | END 2022-05-26 | LOC: M PT 11:15 | PROVIDERS: ATTEND Nurse Practitioner Family | DX: N81.11 Cystocele, midline (principal) ==

== ENCOUNTER → 2022-05-24 | Outpatient (REF) | payer OTHER | LOC: M LAB REF 17:26 | PROVIDERS: ATTEND Internal Medicine Pulmonary Disease | DX: J47.9 Bronchiectasis, uncomplicated (principal) ==

== ENCOUNTER → 2022-06-15 | Outpatient (REF) | payer OTHER ==
[2022-06-15 11:21] LABS: BASO # 0.1 10^3/uL (0.0-0.2); BASO % 0.8 % (0.0-1.0); EOS # 0.3 10^3/uL (0.0-0.5); EOS % 3.2 % (0.0-3.0); HEMATOCRIT 44.4 % (36.0-47.0); LYMPH # 1.8 10^3/uL (1.5-5.0); LYMPH % 20.6 % (24.0-44.0); MEAN CORPUSCULAR HEMOGLOBIN 28.9 pg (27.0-33.0); MEAN CORPUSCULAR HGB CONC 31.5 g/dl (32.0-36.5); MEAN CORPUSCULAR VOLUME 91.5 fl (80.0-96.0); MONO # 0.7 10^3/uL (0.0-0.8); MONO % 7.8 % (2.0-8.0); NEUTROPHILS # 5.8 10^3/uL (1.5-8.5); NEUTROPHILS % 67.3 % (36.0-66.0); PLATELET COUNT, AUTOMATED 519 10^3/uL (150-450); RED BLOOD COUNT 4.85 10^6/uL (4.00-5.40); WHITE BLOOD COUNT 8.7 10^3/uL (4.0-10.0)
[2022-06-15 11:39] LABS: HEMOGLOBIN A1c 5.3 % (4.0-6.0)
[2022-06-15 11:49] LABS: ALBUMIN 3.7 G/DL (3.2-5.2); ALKALINE PHOSPHATASE 104 U/L (46-116); ALT/SGPT 18 U/L (7.0-40); AST/SGOT 14 U/L (<34); BILIRUBIN,TOTAL 0.8 MG/DL (0.3-1.2); BLOOD UREA NITROGEN 20 MG/DL (9-23); CALCIUM LEVEL 9.5 MG/DL (8.5-10.1); CARBON DIOXIDE LEVEL 26 MMOL/L (20-31); CHLORIDE LEVEL 106 MMOL/L (98-107); CHOLESTEROL LEVEL 230 MG/DL (<200); CHOLESTEROL RISK RATIO 4.43 (<5); CREATININE FOR GFR 0.81 MG/DL (0.55-1.30); GLOMERULAR FILTRATION RATE > 60.0 (>51); GLUCOSE, FASTING 103 MG/DL (60-100); HDL CHOLESTEROL 51.9 MG/DL (>40); LDL CHOLESTEROL 157.3 MG/DL (<100); NON-HDL-C 178 MG/DL; POTASSIUM SERUM 4.2 MMOL/L (3.5-5.1); SODIUM LEVEL 141 MMOL/L (136-145); TOTAL PROTEIN 6.7 G/DL (5.7-8.2); TRIGLYCERIDES LEVEL 104 MG/DL (<150)
[2022-06-15 11:51] LABS: FREE T4 1.17 NG/DL (0.89-1.76)
== END ==
LOC: M SFHCCLAY 09:08
PROVIDERS: ATTEND Nurse Practitioner Family
DX: N81.10 Cystocele, unspecified (principal); J45.20 Mild intermittent asthma, uncomplicated; E78.2 Mixed hyperlipidemia; I10 Essential (primary) hypertension; K58.1 Irritable bowel syndrome with constipation; E03.9 Hypothyroidism, unspecified; K21.9 Gastro-esophageal reflux disease without esophagitis; K57.32 Diverticulitis of large intestine without perforation or abscess without bleeding; J31.2 Chronic pharyngitis

== ENCOUNTER → 2022-07-26 | Outpatient (REF) | payer OTHER ==
[~2022-07-26] MED LIST changes: +MONT-5 PO; -SING10TA32 PO
== END ==
LOC: M LAB REF 16:50
PROVIDERS: ATTEND Internal Medicine Pulmonary Disease
DX: J47.9 Bronchiectasis, uncomplicated (principal)

== ENCOUNTER → 2022-11-08 | Outpatient (REF) | payer OTHER ==
[~2022-11-08] MED LIST changes: +FLUT50SP17; -FLUTISP
[2022-11-08 17:53] LABS: APPEARANCE, URINE HAZY (CLEAR); BACTERIA, URINE AUTO 1+ (NEGATIVE); BILIRUBIN, URINE AUTO NEGATIVE (NEGATIVE); BLOOD, URINE BLOOD NEGATIVE (NEGATIVE); COLOR, URINE YELLOW (YELLOW); GLUCOSE, URINE (UA) AUTO NEGATIVE (NEGATIVE); KETONE, URINE AUTO NEGATIVE (NEGATIVE); LEUKOCYTE ESTERASE, URINE AUTO NEGATIVE (NEGATIVE); MUCUS, URINE SMALL (NEGATIVE); NITRITE, URINE AUTO NEGATIVE (NEGATIVE); PROTEIN, URINE AUTO NEGATIVE (NEGATIVE); RBC, URINE AUTO 0 /HPF (0-3); SPECIFIC GRAVITY URINE AUTO 1.008 (1.002-1.035); SQUAMOUS EPITHELIAL CELL UR AU 6 /HPF (0-6); UROBILINOGEN, URINE AUTO 0.2 mg/dL (0.0-2.0); WBC, URINE AUTO 1 /HPF (0-3)
== END ==
LOC: M LABSMT 11:51
PROVIDERS: ATTEND Urology
DX: R39.9 Unspecified symptoms and signs involving the genitourinary system (principal)

== ENCOUNTER → 2023-02-04 | Outpatient (CLI) | payer BC, OTHER ==
[~2023-02-04] MED LIST changes: +DICY-61 PO; -DICY10CA13 PO
== END ==
LOC: M RAD 11:33
PROVIDERS: ATTEND Nurse Practitioner Family
DX: R22.0 Localized swelling, mass and lump, head (principal)

== ENCOUNTER → 2023-02-28 | Outpatient (CLI) | payer BC, OTHER | LOC: M CLY 13:58 | PROVIDERS: ATTEND Nurse Practitioner Family | DX: J45.901 Unspecified asthma with (acute) exacerbation (principal) ==

== ENCOUNTER → 2023-04-24 | Outpatient (REF) | payer OTHER, BC | LOC: M LAB REF 17:18 | PROVIDERS: ATTEND Internal Medicine Pulmonary Disease | DX: J45.50 Severe persistent asthma, uncomplicated (principal) ==

== ENCOUNTER → 2023-06-20 | Outpatient (REF) | payer BC, OTHER ==
[~2023-06-20] MED LIST changes: -FLUT50SP17; +FLUTISP
[2023-06-20 18:22] LABS: BASO # 0.1 10^3/uL (0.0-0.2); EOS # 0.1 10^3/uL (0.0-0.5); EOS % 1.1 % (0.0-3.0); HEMATOCRIT 46.4 % (36.0-47.0); HEMOGLOBIN 14.7 g/dl (12.0-15.5); LYMPH # 1.5 10^3/uL (1.5-5.0); LYMPH % 18.4 % (24.0-44.0); MEAN CORPUSCULAR HEMOGLOBIN 29.4 pg (27.0-33.0); MEAN CORPUSCULAR HGB CONC 31.7 g/dl (32.0-36.5); MEAN CORPUSCULAR VOLUME 92.8 fl (80.0-96.0); MONO # 0.7 10^3/uL (0.0-0.8); MONO % 8.6 % (2.0-8.0); NEUTROPHILS # 5.7 10^3/uL (1.5-8.5); NEUTROPHILS % 70.5 % (36.0-66.0); PLATELET COUNT, AUTOMATED 515 10^3/uL (150-450)
[2023-06-20 18:52] LABS: ALBUMIN 3.7 G/DL (3.2-5.2); ALKALINE PHOSPHATASE 92 U/L (46-116); ALT/SGPT 25 U/L (7.0-40); AST/SGOT 16 U/L (<34); BILIRUBIN,TOTAL 0.6 MG/DL (0.3-1.2); BLOOD UREA NITROGEN 16 MG/DL (9-23); CALCIUM LEVEL 9.5 MG/DL (8.3-10.6); CARBON DIOXIDE LEVEL 28 MMOL/L (20-31); CHLORIDE LEVEL 108 MMOL/L (98-107); CHOLESTEROL LEVEL 234 MG/DL (<200); CHOLESTEROL RISK RATIO 4.74 (<5); CREATININE FOR GFR 0.91 MG/DL (0.55-1.30); GLOMERULAR FILTRATION RATE > 60.0 (>45); GLUCOSE, FASTING 96 MG/DL (74-106); HDL CHOLESTEROL 49.3 MG/DL (>40); LDL CHOLESTEROL 144.7 MG/DL (<100); NON-HDL-C 184.7 MG/DL; SODIUM LEVEL 142 MMOL/L (136-145); TOTAL PROTEIN 6.7 G/DL (5.7-8.2); TRIGLYCERIDES LEVEL 200 MG/DL (<150)
[2023-06-20 18:53] LABS: THYROID STIMULATING HORMONE 1.609 uIU/ML (0.55-4.78)
[2023-06-20 18:55] LABS: HEMOGLOBIN A1c 5.6 % (4.0-6.0)
== END ==
LOC: M SFHCCLAY 11:38
PROVIDERS: ATTEND Nurse Practitioner Family
DX: N81.10 Cystocele, unspecified (principal); J45.20 Mild intermittent asthma, uncomplicated; E78.2 Mixed hyperlipidemia; I10 Essential (primary) hypertension; K58.1 Irritable bowel syndrome with constipation; E03.9 Hypothyroidism, unspecified; K21.9 Gastro-esophageal reflux disease without esophagitis

== ENCOUNTER → 2023-07-30 | Outpatient (REF) | payer BC, OTHER | LOC: M LABDRAWC 16:56 | PROVIDERS: ATTEND Internal Medicine Pulmonary Disease | DX: J45.50 Severe persistent asthma, uncomplicated (principal); B96.89 Other specified bacterial agents as the cause of diseases classified elsewhere ==

== ENCOUNTER → 2023-08-08 | Outpatient (REF) | payer BC, OTHER ==
[2023-08-08 18:47] LABS: EOS # 0.1 10^3/uL (0.0-0.5)
[2023-08-08 19:14] LABS: IMMUNOGLOBULIN A 250.6 MG/DL (40-350)
== END ==
LOC: M LABDRAWC 17:22
PROVIDERS: ATTEND Internal Medicine Pulmonary Disease
DX: J45.50 Severe persistent asthma, uncomplicated (principal)

== ENCOUNTER → 2023-08-14 | Outpatient (CLI) | payer BC | LOC: M PLAIMG 08:21 | PROVIDERS: ATTEND Internal Medicine Pulmonary Disease | DX: R91.8 Other nonspecific abnormal finding of lung field (principal); J47.9 Bronchiectasis, uncomplicated; K44.9 Diaphragmatic hernia without obstruction or gangrene; R93.89 Abnormal findings on diagnostic imaging of other specified body structures ==

== ENCOUNTER → 2023-08-15 | Outpatient (REF) | payer OTHER ==
[2023-08-15 17:43] LABS: APPEARANCE, URINE CLEAR (CLEAR); BACTERIA, URINE AUTO 1+ (NEGATIVE); BILIRUBIN, URINE AUTO NEGATIVE (NEGATIVE); BLOOD, URINE BLOOD NEGATIVE (NEGATIVE); COLOR, URINE STRAW (YELLOW); GLUCOSE, URINE (UA) AUTO NEGATIVE (NEGATIVE); KETONE, URINE AUTO NEGATIVE (NEGATIVE); LEUKOCYTE ESTERASE, URINE AUTO TRACE (NEGATIVE); MUCUS, URINE SMALL (NEGATIVE); NITRITE, URINE AUTO NEGATIVE (NEGATIVE); PROTEIN, URINE AUTO NEGATIVE (NEGATIVE); RBC, URINE AUTO 1 /HPF (0-3); SPECIFIC GRAVITY URINE AUTO 1.003 (1.002-1.035); SQUAMOUS EPITHELIAL CELL UR AU 5 /HPF (0-6); UROBILINOGEN, URINE AUTO 0.2 mg/dL (0.0-2.0); WBC, URINE AUTO 3 /HPF (0-3)
== END ==
LOC: M SFHCCLAY 10:36
PROVIDERS: ATTEND Nurse Practitioner Family
DX: R39.9 Unspecified symptoms and signs involving the genitourinary system (principal)

== ENCOUNTER → 2023-08-29 | Outpatient (REF) | payer OTHER | LOC: M LABDRAWC 16:34 | PROVIDERS: ATTEND Internal Medicine Pulmonary Disease | DX: J45.50 Severe persistent asthma, uncomplicated (principal) ==

== ENCOUNTER → 2023-09-05 | Outpatient (REF) | payer BC, OTHER ==
[2023-09-05 13:55] LABS: APPEARANCE, URINE CLEAR (CLEAR); BACTERIA, URINE AUTO NEGATIVE (NEGATIVE); BILIRUBIN, URINE AUTO NEGATIVE (NEGATIVE); BLOOD, URINE BLOOD NEGATIVE (NEGATIVE); COLOR, URINE STRAW (YELLOW); GLUCOSE, URINE (UA) AUTO NEGATIVE (NEGATIVE); KETONE, URINE AUTO NEGATIVE (NEGATIVE); LEUKOCYTE ESTERASE, URINE AUTO NEGATIVE (NEGATIVE); NITRITE, URINE AUTO NEGATIVE (NEGATIVE); PROTEIN, URINE AUTO NEGATIVE (NEGATIVE); RBC, URINE AUTO 0 /HPF (0-3); SPECIFIC GRAVITY URINE AUTO 1.004 (1.002-1.035); SQUAMOUS EPITHELIAL CELL UR AU 1 /HPF (0-6); UROBILINOGEN, URINE AUTO 0.2 mg/dL (0.0-2.0); WBC, URINE AUTO 0 /HPF (0-3)
== END ==
LOC: M SMT 12:44
PROVIDERS: ATTEND Urology
DX: R93.89 Abnormal findings on diagnostic imaging of other specified body structures (principal)

== ENCOUNTER → 2023-09-13 | Outpatient (CLI) | payer BC ==
[~2023-09-13] MED LIST changes: +ISOVUE-370 76% 100ML VIAL As Ordered ONE
== END ==
LOC: M RAD 08:29
PROVIDERS: ATTEND Urology
DX: N28.1 Cyst of kidney, acquired (principal); R93.89 Abnormal findings on diagnostic imaging of other specified body structures; Z90.89 Acquired absence of other organs
CPT/HCPCS: 74177; Q9967

== ENCOUNTER → 2023-12-17 | Outpatient (REF) | payer BC ==
[~2023-12-17] MED LIST changes: -ISOVUE-370 76% 100ML VIAL As Ordered ONE
[2023-12-17 18:06] LABS: BASO # 0.1 10^3/uL (0.0-0.2); EOS # 0.1 10^3/uL (0.0-0.5); EOS % 1.3 % (0.0-3.0); HEMATOCRIT 44.4 % (36.0-47.0); HEMOGLOBIN 14.6 g/dl (12.0-15.5); LYMPH # 1.5 10^3/uL (1.5-5.0); LYMPH % 21.3 % (24.0-44.0); MEAN CORPUSCULAR HEMOGLOBIN 29.3 pg (27.0-33.0); MEAN CORPUSCULAR HGB CONC 32.9 g/dl (32.0-36.5); MONO # 0.7 10^3/uL (0.0-0.8); MONO % 9.3 % (2.0-8.0); NEUTROPHILS # 4.7 10^3/uL (1.5-8.5); NEUTROPHILS % 66.8 % (36.0-66.0); PLATELET COUNT, AUTOMATED 455 10^3/uL (150-450); RED BLOOD COUNT 4.99 10^6/uL (4.00-5.40); WHITE BLOOD COUNT 7.1 10^3/uL (4.0-10.0)
[2023-12-17 18:44] LABS: ALBUMIN 3.8 G/DL (3.2-5.2); ALKALINE PHOSPHATASE 113 U/L (46-116); ALT/SGPT 23 U/L (7.0-40); AST/SGOT 12 U/L (<34); BILIRUBIN,TOTAL 0.7 MG/DL (0.3-1.2); BLOOD UREA NITROGEN 14 MG/DL (9-23); CALCIUM LEVEL 9.1 MG/DL (8.3-10.6); CARBON DIOXIDE LEVEL 24 MMOL/L (20-31); CHLORIDE LEVEL 109 MMOL/L (98-107); CHOLESTEROL LEVEL 218 MG/DL (<200); CHOLESTEROL RISK RATIO 4.74 (<5); CREATININE FOR GFR 0.93 MG/DL (0.55-1.30); GLOMERULAR FILTRATION RATE > 60.0 (>45); GLUCOSE, FASTING 101 MG/DL (74-106); HDL CHOLESTEROL 45.9 MG/DL (>40); LDL CHOLESTEROL 139.7 MG/DL (<100); NON-HDL-C 172.1 MG/DL; POTASSIUM SERUM 4.5 MMOL/L (3.5-5.1); SODIUM LEVEL 141 MMOL/L (136-145); TOTAL PROTEIN 6.5 G/DL (5.7-8.2); TRIGLYCERIDES LEVEL 162 MG/DL (<150)
[2023-12-17 18:45] LABS: FREE T4 1.11 NG/DL (0.89-1.76); THYROID STIMULATING HORMONE 1.313 uIU/ML (0.55-4.78)
[2023-12-17 18:46] LABS: HEMOGLOBIN A1c 5.4 % (4.0-6.0)
== END ==
LOC: M SFHCCLAY 09:42
PROVIDERS: ATTEND Nurse Practitioner Family
DX: N81.10 Cystocele, unspecified (principal); J45.20 Mild intermittent asthma, uncomplicated; E78.2 Mixed hyperlipidemia; I10 Essential (primary) hypertension; K58.1 Irritable bowel syndrome with constipation; E03.9 Hypothyroidism, unspecified; K21.9 Gastro-esophageal reflux disease without esophagitis

== ENCOUNTER → 2024-01-24 | Outpatient (REF) | payer BC ==
[~2024-01-24] MED LIST changes: -ACIP1TAB PO; +RABE20TA88 PO
[2024-02-03 14:42] LABS: PNEUMOCOCCAL AB TYPE 1 12.8 mcg/mL (>=1.0); PNEUMOCOCCAL AB TYPE 12 4.8 mcg/mL (>=1.0); PNEUMOCOCCAL AB TYPE 14 12.5 mcg/mL (>=1.0); PNEUMOCOCCAL AB TYPE 17 1.5 mcg/mL (>=1.0); PNEUMOCOCCAL AB TYPE 19 41.8 mcg/mL (>=1.0); PNEUMOCOCCAL AB TYPE 2 1.6 mcg/mL (>=1.0); PNEUMOCOCCAL AB TYPE 20 7.3 mcg/mL (>=1.0); PNEUMOCOCCAL AB TYPE 23 1.5 mcg/mL (>=1.0); PNEUMOCOCCAL AB TYPE 26 10.7 mcg/mL (>=1.0); PNEUMOCOCCAL AB TYPE 3 1.6 mcg/mL (>=1.0); PNEUMOCOCCAL AB TYPE 34 10.2 mcg/mL (>=1.0); PNEUMOCOCCAL AB TYPE 4 8.7 mcg/mL (>=1.0); PNEUMOCOCCAL AB TYPE 43 10.7 mcg/mL (>=1.0); PNEUMOCOCCAL AB TYPE 5 2.8 mcg/mL (>=1.0); PNEUMOCOCCAL AB TYPE 51 2.1 mcg/mL (>=1.0); PNEUMOCOCCAL AB TYPE 54 15.6 mcg/mL (>=1.0); PNEUMOCOCCAL AB TYPE 56 4.5 mcg/mL (>=1.0); PNEUMOCOCCAL AB TYPE 57 10.1 mcg/mL (>=1.0); PNEUMOCOCCAL AB TYPE 68 4.8 mcg/mL (>=1.0); PNEUMOCOCCAL AB TYPE 70 8.9 mcg/mL (>=1.0); PNEUMOCOCCAL AB TYPE 8 35.2 mcg/mL (>=1.0); PNEUMOCOCCAL AB TYPE 9 2.2 mcg/mL (>=1.0)
== END ==
LOC: M SFHCCLAY 10:19
PROVIDERS: ATTEND Nurse Practitioner Family
DX: Z23 Encounter for immunization (principal)

== ENCOUNTER → 2024-01-29 | Outpatient (REF) | payer BC, OTHER | LOC: M LAB REF 16:33 | PROVIDERS: ATTEND Internal Medicine Pulmonary Disease | DX: J45.50 Severe persistent asthma, uncomplicated (principal); J47.9 Bronchiectasis, uncomplicated ==

== ENCOUNTER → 2024-04-13 | Outpatient (CLI) | payer BC | LOC: M WHC 09:43 | PROVIDERS: ATTEND Specialist | DX: Z12.31 Encounter for screening mammogram for malignant neoplasm of breast (principal); R92.313 Mammographic fatty tissue density, bilateral breasts ==

== ENCOUNTER → 2024-05-14 | Outpatient (REF) | payer OTHER ==
[~2024-05-14] MED LIST changes: -ADV250INH INH; +ADVA1AER9 INH
== END ==
LOC: M LAB REF 16:37
PROVIDERS: ATTEND Internal Medicine Pulmonary Disease
DX: R05.3 Chronic cough (principal)

== ENCOUNTER → 2024-06-16 | Outpatient (REF) | payer BC ==
[~2024-06-16] MED LIST changes: -ALIG4CAP PO; +ALIG4CAP3 PO
== END ==
LOC: M SFHCCLAY 16:38
PROVIDERS: ATTEND Nurse Practitioner Family
DX: J45.901 Unspecified asthma with (acute) exacerbation (principal); R05.1 Acute cough

== ENCOUNTER → 2024-06-16 | Outpatient (CLI) | payer BC | LOC: M CLY 09:59 | PROVIDERS: ATTEND Nurse Practitioner Family | DX: R05.1 Acute cough (principal) ==

== ENCOUNTER 2024-07-20 07:21 | Day surgery (SDC) | payer BC ==
[~2024-07-20] VITALS: Ht 165.1 cm; Wt 85.3 kg
[~2024-07-20 07:21] MED LIST changes: +ALBU10.7 INH; +DEXI60CA2 PO; +LEVO1TAB40 PO; +TREL1AER INH
[2024-07-20] MEDS ORDERED: LIDOCAINE 2% 100MG/5ML SDV (FOR ANES.) As Ordered ONE (08:49)
[2024-07-20] MEDS ORDERED: propofoL 200 MG/20 ML VIAL As Ordered ONE (08:49)
[2024-07-20 09:02] VITALS: TEMP 97.8
[2024-07-20 09:21] VITALS: BP 139/75; O2SAT 96
== END 2024-07-20 09:25 | disposition home or self-care (01) ==
LOC: M OPP 07:21
PROVIDERS: ATTEND Internal Medicine Gastroenterology
DX: D12.0 Benign neoplasm of cecum (principal); D12.2 Benign neoplasm of ascending colon; D12.4 Benign neoplasm of descending colon; K57.30 Diverticulosis of large intestine without perforation or abscess without bleeding; K64.8 Other hemorrhoids; Z86.0100 Personal history of colon polyps, unspecified; Z80.0 Family history of malignant neoplasm of digestive organs; Z88.8 Allergy status to other drugs, medicaments and biological substances; Z79.51 Long term (current) use of inhaled steroids; Z79.899 Other long term (current) drug therapy; J45.909 Unspecified asthma, uncomplicated

== ENCOUNTER → 2024-08-07 | Outpatient (REF) | payer BC ==
[2024-08-07 14:15] LABS: ALBUMIN 3.6 G/DL (3.2-5.2); ALKALINE PHOSPHATASE 105 U/L (35-104); ALT/SGPT 17 U/L (7.0-40); AST/SGOT 13 U/L (<34); BASO # 0.1 10^3/uL (0.0-0.2); BILIRUBIN,TOTAL 0.5 MG/DL (0.3-1.2); BLOOD UREA NITROGEN 23 MG/DL (9-23); CALCIUM LEVEL 9.2 MG/DL (8.3-10.6); CARBON DIOXIDE LEVEL 24 MMOL/L (20-31); CHLORIDE LEVEL 110 MMOL/L (98-107); CHOLESTEROL LEVEL 216 MG/DL (<200); CREATININE FOR GFR 0.76 MG/DL (0.55-1.30); EOS # 0.1 10^3/uL (0.0-0.5); EOS % 1.5 % (0.0-3.0); GLOMERULAR FILTRATION RATE > 60.0 (>45); GLUCOSE, FASTING 115 MG/DL (74-106); HDL CHOLESTEROL 50.2 MG/DL (>40); LDL CHOLESTEROL 146.4 MG/DL (<100); LYMPH # 1.5 10^3/uL (1.5-5.0); LYMPH % 22.5 % (24.0-44.0); MEAN CORPUSCULAR HGB CONC 31.8 g/dl (32.0-36.5); MEAN CORPUSCULAR VOLUME 91.1 fl (80.0-96.0); MONO # 0.5 10^3/uL (0.0-0.8); MONO % 7.3 % (2.0-8.0); NEUTROPHILS # 4.6 10^3/uL (1.5-8.5); NEUTROPHILS % 67.4 % (36.0-66.0); NON-HDL-C 165.8 MG/DL; PLATELET COUNT, AUTOMATED 452 10^3/uL (150-450); POTASSIUM SERUM 4.7 MMOL/L (3.5-5.1); RED BLOOD COUNT 4.83 10^6/uL (4.00-5.40); SODIUM LEVEL 143 MMOL/L (136-145); TOTAL PROTEIN 6.7 G/DL (5.7-8.2); TRIGLYCERIDES LEVEL 97 MG/DL (<150); WHITE BLOOD COUNT 6.8 10^3/uL (4.0-10.0)
[2024-08-07 14:42] LABS: HEMOGLOBIN A1c 5.5 % (4.0-6.0)
== END ==
LOC: M SFHCCLAY 08:29
PROVIDERS: ATTEND Nurse Practitioner Family
DX: N81.10 Cystocele, unspecified (principal); J45.20 Mild intermittent asthma, uncomplicated; E78.2 Mixed hyperlipidemia; I10 Essential (primary) hypertension; K58.1 Irritable bowel syndrome with constipation; E03.9 Hypothyroidism, unspecified; K21.9 Gastro-esophageal reflux disease without esophagitis; J45.901 Unspecified asthma with (acute) exacerbation

== ENCOUNTER → 2024-10-13 | Outpatient (REF) | payer BC | LOC: M SFHCCLAY 17:22 | PROVIDERS: ATTEND Physician Assistant | DX: R05.1 Acute cough (principal) ==

== ENCOUNTER → 2024-12-07 | Outpatient (REF) | payer OTHER | LOC: M LAB REF 11:46 | PROVIDERS: ATTEND Internal Medicine Pulmonary Disease | DX: J45.50 Severe persistent asthma, uncomplicated (principal) ==

== ENCOUNTER → 2024-12-22 | Outpatient (REF) | payer BC ==
[2024-12-22 18:58] LABS: ALT/SGPT 28 U/L (7.0-40); AST/SGOT 21 U/L (<34); C REACTIVE PROTEIN QUANTITATIV < 0.50 MG/DL (<1.0); CALCIUM LEVEL 9.8 MG/DL (8.3-10.6); CARBON DIOXIDE LEVEL 25 MMOL/L (20-31); CHLORIDE LEVEL 106 MMOL/L (98-107); CREATININE FOR GFR 0.87 MG/DL (0.55-1.30); GLOMERULAR FILTRATION RATE 75.3 (>45); POTASSIUM SERUM 4.9 MMOL/L (3.5-5.1); SODIUM LEVEL 145 MMOL/L (136-145)
[2024-12-22 18:59] LABS: BASO # 0.1 10^3/uL (0.0-0.2); BASO % 1.2 % (0.0-1.0); EOS # 0.1 10^3/uL (0.0-0.5); EOS % 1.0 % (0.0-3.0); FREE T4 1.34 NG/DL (0.89-1.76); LYMPH # 1.6 10^3/uL (1.5-5.0); LYMPH % 19.8 % (24.0-44.0); MONO # 0.7 10^3/uL (0.0-0.8); MONO % 8.0 % (2.0-8.0); NEUTROPHILS # 5.7 10^3/uL (1.5-8.5); NEUTROPHILS % 69.6 % (36.0-66.0); PLATELET COUNT, AUTOMATED 450 10^3/uL (150-450)
[2024-12-22 19:00] LABS: TOTAL 25(OH) VITAMIN D 23.0 NG/ML (20.0-100.0)
[2024-12-22 19:01] LABS: CHOLESTEROL LEVEL 220.0 MG/DL (<200); CHOLESTEROL RISK RATIO 3.73 (<5); LDL CHOLESTEROL 140.9 MG/DL (<100); NON-HDL-C 161.1 MG/DL; TRIGLYCERIDES LEVEL 101.0 MG/DL (<150)
[2024-12-22 19:02] LABS: IMMUNOGLOBULIN E 51.6 IU/ML (0-378)
[2024-12-22 19:13] LABS: ESTIMATED AVERAGE GLUCOSE 111.0 MG/DL (60-110)
[2024-12-22 19:23] LABS: ERYTHROCYTE SEDIMENTATION RATE 30 mm/hr (0-30)
[2024-12-26 07:07] LABS: IgG SERUM (part of Subclasses) 629.0 mg/dL (600-1540)
[2024-12-29 19:53] LABS: PNEUMOCOCCAL AB TYPE 1 2.8 (>=1.0); PNEUMOCOCCAL AB TYPE 12 1.6 (>=1.0); PNEUMOCOCCAL AB TYPE 14 4.3 (>=1.0); PNEUMOCOCCAL AB TYPE 17 < 0.3 (>=1.0); PNEUMOCOCCAL AB TYPE 19 12.4 (>=1.0); PNEUMOCOCCAL AB TYPE 2 < 0.3 (>=1.0); PNEUMOCOCCAL AB TYPE 20 2.4 (>=1.0); PNEUMOCOCCAL AB TYPE 22 1.8 (>=1.0); PNEUMOCOCCAL AB TYPE 23 < 0.3 (>=1.0); PNEUMOCOCCAL AB TYPE 26 2.4 (>=1.0); PNEUMOCOCCAL AB TYPE 3 0.8 (>=1.0); PNEUMOCOCCAL AB TYPE 34 1.8 (>=1.0); PNEUMOCOCCAL AB TYPE 4 2.4 (>=1.0); PNEUMOCOCCAL AB TYPE 43 2.3 (>=1.0); PNEUMOCOCCAL AB TYPE 5 2.5 (>=1.0); PNEUMOCOCCAL AB TYPE 51 0.4 (>=1.0); PNEUMOCOCCAL AB TYPE 54 1.0 (>=1.0); PNEUMOCOCCAL AB TYPE 56 1.2 (>=1.0); PNEUMOCOCCAL AB TYPE 57 3.4 (>=1.0); PNEUMOCOCCAL AB TYPE 68 2.3 (>=1.0); PNEUMOCOCCAL AB TYPE 70 1.2 (>=1.0); PNEUMOCOCCAL AB TYPE 8 3.6 (>=1.0); PNEUMOCOCCAL AB TYPE 9 3.0 (>=1.0)
== END ==
LOC: M SFHCCLAY 09:14
PROVIDERS: ATTEND Nurse Practitioner Family
DX: K21.9 Gastro-esophageal reflux disease without esophagitis (principal); I10 Essential (primary) hypertension; K58.1 Irritable bowel syndrome with constipation; N81.10 Cystocele, unspecified; J45.20 Mild intermittent asthma, uncomplicated; E78.2 Mixed hyperlipidemia; E03.9 Hypothyroidism, unspecified; J45.901 Unspecified asthma with (acute) exacerbation; J47.0 Bronchiectasis with acute lower respiratory infection

== ENCOUNTER → 2025-01-01 | Outpatient (REF) | payer BC | LOC: M SFHCPLAZ 16:49 | PROVIDERS: ATTEND Internal Medicine Infectious Disease | DX: J47.0 Bronchiectasis with acute lower respiratory infection (principal) ==

== ENCOUNTER → 2025-01-07 | Outpatient (REF) | payer OTHER | LOC: M SFHCPLAZ 17:16 | PROVIDERS: ATTEND Internal Medicine Infectious Disease | DX: J47.0 Bronchiectasis with acute lower respiratory infection (principal) ==

== ENCOUNTER → 2025-01-20 | Outpatient (CLI) | payer BC | LOC: M PLAIMG 07:30 | PROVIDERS: ATTEND Internal Medicine Infectious Disease | DX: J47.0 Bronchiectasis with acute lower respiratory infection (principal) ==

== ENCOUNTER → 2025-03-05 | Outpatient (REF) | payer OTHER | LOC: M LAB REF 16:58 | PROVIDERS: ATTEND Internal Medicine Pulmonary Disease | DX: J45.50 Severe persistent asthma, uncomplicated (principal) ==

== ENCOUNTER → 2025-04-19 | Outpatient (REF) | payer BC ==
[2025-04-21 14:17] LABS: HPV APTIMA Not Detected (Not Detected)
== END ==
LOC: M PLALAB 14:57
PROVIDERS: ATTEND Specialist
DX: Z12.4 Encounter for screening for malignant neoplasm of cervix (principal)
CPT/HCPCS: 87624; G0123

== ENCOUNTER → 2025-04-19 | Outpatient (CLI) | payer BC | LOC: M WHC 14:12 | PROVIDERS: ATTEND Specialist | DX: Z12.31 Encounter for screening mammogram for malignant neoplasm of breast (principal) ==

== ENCOUNTER → 2025-05-04 | Outpatient (REF) | payer BC, OTHER | LOC: M SFHCCLAY 17:19 | PROVIDERS: ATTEND Physician Assistant | DX: J22 Unspecified acute lower respiratory infection (principal) ==